=== PATIENT | male | born 1965 | race Caucasian/White ===

== ENCOUNTER → 2016-05-07 | Outpatient (CLI) | payer MEDICAID ==
--- NOTE | 2016-05-07 21:54 | PN ---
This patient has chronic insomnia and mild positional obstructive sleep apnea. I am seeing him for a six month check. He is doing well. He is still on Ambien. He is unable to sleep without Ambien, however, with Ambient he is averaging around 7 hours of sleep. He goes to bed around 9:00 p.m. and wakes up at 4:00 a.m. in the morning. No sleepwalking. No daytime hypersomnia or sleepiness. No history of any motor vehicle accidents because of feeling sleepy or tired. No loud snoring at this point in time, and his weight has been stable. As such, he has been not encountering any side effects of Ambien and this will be continued. At times to wean himself off the medications has failed knowing that this has caused limitations in his sleep hours. His current [place] score is 6. His current vitals: BP is 140/89, pulse 60, respirations 16, temperature 98.1. Weight is 320. Height is 72 inches. BMI is 42.9. [place] score is 6. GENERAL APPEARANCE: Calm, comfortable. LUNGS: Clear to auscultation. HEART: Sounds are regular rate and rhythm. Normal S1, S2. ABDOMEN: Soft, nontender. No organomegaly. EXTREMITIES: No edema. No cyanosis or clubbing. IMPRESSIONS: 1. Chronic insomnia stable on Ambien. 2. Obesity. 3. Obstructive sleep apnea, REM specific with some mild positional component. PLAN: 1. Continue Ambien at same dose. 2. Encourage weight loss. 3. Give the patient a year supply of Ambien. 4. See him back in a years' time in follow-up; earlier if needed.
== END | disposition home or self-care (01) ==
LOC: SLEEP 15:43
PROVIDERS: ATTEND Internal Medicine Critical Care Medicine
DX: F51.04 Psychophysiologic insomnia (principal); G47.33 Obstructive sleep apnea (adult) (pediatric); E66.9 Obesity, unspecified; Z68.41 Body mass index [BMI] 40.0-44.9, adult; Z79.899 Other long term (current) drug therapy

== ENCOUNTER 2016-11-13 10:44 | Inpatient (IN) | payer MEDICAID ==
[2016-11-13] MEDS ORDERED: SODIUM CHLORIDE 0.9% 1,000 ML IV STA ×2 (11:11)
[2016-11-13] MEDS ORDERED: PIPERACILLIN-TAZOBACTAM 3.375 GM in DEXTROSE/WATER 1 50ML.BAG IVPB STA (11:11)
--- NOTE | 2016-11-13 11:39 | ED ---
General Adult HPI <Landen Phoenix - Last Filed: 11/13/16 12:47> - General Source: patient, RN notes reviewed, old records reviewed Mode of arrival: ambulatory Limitations: no limitations <Alfredito Wilson - Last Filed: 11/13/16 12:49> - General Chief complaint: Abdominal Pain Stated complaint: Dx DIVERTICULAR ABSCESS Time Seen by Provider: 11/13/16 11:00 - History of Present Illness Initial comments: Patient 51-year-old male who presents emergency room today with a chief complaint of lower abdominal pain over the last 4-5 days. He does admit to sharp pain at times and lower abdomen. He states he did go to walk-in clinic and had an outpatient CAT scan ordered. States he was called back and advised come here to the emergency room for a abscess. Patient states currently comfortable at this time currently rates pain 2/10. Denies any other symptoms. Patient denies any recent fever, chills, shortness of breath, chest pain, back pain, nausea or vomiting, numbness or tingling, dysuria or hematuria, constipation or diarrhea, headaches or visual changes, or any other complaints. (Alfredito Wilson) - Related Data Home Medications Medication Instructions Recorded Confirmed Zolpidem Tartrate [Zolpidem 10 mg PO HS 11/13/16 11/13/16 Tartrate] Allergies Allergy/AdvReac Type Severity Reaction Status Date / Time No Known Allergies Allergy Verified 11/13/16 11:53 Review of Systems ROS Other: All systems not noted in ROS Statement are negative. <Landen Phoenix - Last Filed: 11/13/16 12:47> ROS Other: All systems not noted in ROS Statement are negative. <Alfredito Wilson - Last Filed: 11/13/16 12:49> ROS Statement: Those systems with pertinent positive or pertinent negative responses have been documented in the HPI. Past Medical History Past Medical History: No Reported History History of Any Multi-Drug Resistant Organisms: None Reported Past Surgical History: Appendectomy, Tonsillectomy Additional Past Surgical History / Comment(s): rhinoplasty Past Psychological History: No Psychological Hx Reported Smoking Status: Former smoker Past Alcohol Use History: Occasional Past Drug Use History: None Reported <Alfredito Wilson - Last Filed: 11/13/16 12:49> General Exam <Landen Phoenix Last Filed: 11/13/16 12:47> Limitations: no limitations <Alfredito Wilson - Last Filed: 11/13/16 12:49> - General Exam Comments Initial Comments: General: The patient is awake and alert, in no distress, and does not appear acutely ill. Eye: Pupils are equal, round and reactive to light, extra-ocular movements are intact. No nystagmus. There is normal conjunctiva bilaterally. No signs of icterus. Ears, nose, mouth and throat: There are moist mucous membranes and no oral lesions. Neck: The neck is supple, there is no tenderness or JVD. Cardiovascular: There is a regular rate and rhythm. No murmur, rub or gallop is appreciated. Respiratory: Lungs are clear to auscultation, respirations are non-labored, breath sounds are equal. No wheezes, stridor, rales, or rhonchi. Gastrointestinal: Normal appearance abdomen. Normal bowel sounds. Abdomen soft on palpation. Patient does have mild tenderness suprapubic. No rebound. No guarding. No CVA tenderness. Musculoskeletal: Normal ROM, no tenderness. Strength 5/5. Sensation intact. Pulses equal bilaterally 2+. Neurological: A&O x 3. CN II-XII intact, There are no obvious motor or sensory deficits. Coordination appears grossly intact. Speech is normal. Skin: Skin is warm and dry and no rashes or lesions are noted. Psychiatric: Cooperative, appropriate mood & affect, normal judgment. (Alfredito Wilson) Course <Landen Phoenix - Last Filed: 11/13/16 12:47> <Alfredito Wilson - Last Filed: 11/13/16 12:49> Vital Signs 11/13/16 11/13/16 10:48 12:39 Temperature 98.6 F 99.2 F Pulse Rate 90 82 Respiratory 20 20 Rate Blood Pressure 125/74 114/57 O2 Sat by Pulse 96 98 Oximetry - Reevaluation(s) Reevaluation #1: 11/13/16 11:39 CT of the abdomen and pelvis reviewed and shows extensive diverticular change in the sigmoid colon. There is a pulsatile attenuation associated with the sigmoid colon which showing enhancement and measures 4.8 cm. Surrounding fat at this level shows inflammatory change, increased attenuation. Some mass effect on the sigmoid colon due to inflammatory mass. Colonic wall thickening is present. (Alfredito Wilson) Reevaluation #2: 11/13/16 12:47 I proceed a [id number] evaluation the patient did discuss spines with him and his . Patient does demonstrate lower abdominal tenderness to the mid and left lower quadrant area. This is consistent with the diverticulitis with abscess noted on the CAT scan. The patient will be admitted to the hospitalist service of Dr. Ibanez with Dr. Clifton on consult. (Landen Phoenix) Medical Decision Making - Lab Data Result diagrams: 11/13/16 11:35 11/13/16 11:35 <Landen Phoenix - Last Filed: 11/13/16 12:47> - Lab Data Result diagrams: 11/13/16 11:35 11/13/16 11:35 <Alfredito Wilson - Last Filed: 11/13/16 12:49> - Lab Data Lab Results 11/13/16 11/13/16 11/13/16 Range/Units 11:35 11:35 11:35 WBC 9.5 (3.8-10.6) k/uL RBC 4.37 (4.30-5.90) m/uL Hgb 13.9 (13.0-17.5) gm/dL Hct 39.6 (39.0-53.0) % MCV 90.5 (80.0-100.0) fL MCH 31.8 (25.0-35.0) pg MCHC 35.2 (31.0-37.0) g/dL RDW 12.7 (11.5-15.5) % Plt Count 283 (150-450) k/uL Neutrophils % 66 % Lymphocytes % 21 % Monocytes % 8 % Eosinophils % 1 % Basophils % 1 % Neutrophils # 6.3 (1.3-7.7) k/uL Lymphocytes # 2.0 (1.0-4.8) k/uL Monocytes # 0.8 (0-1.0) k/uL Eosinophils # 0.1 (0-0.7) k/uL Basophils # 0.1 (0-0.2) k/uL Sodium 138 (137-145) mmol/L Potassium 4.3 (3.5-5.1) mmol/L Chloride 103 (98-107) mmol/L Carbon Dioxide 26 (22-30) mmol/L Anion Gap 9 mmol/L BUN 14 (9-20) mg/dL Creatinine 1.00 (0.66-1.25) mg/dL Est GFR (MDRD) Af Amer >60 (>60 ml/min/1.73 sqM) Est GFR (MDRD) Non-Af >60 (>60 ml/min/1.73 sqM) Glucose 140 H (74-99) mg/dL Plasma Lactic Acid Julián 1.4 (0.7-2.0) mmol/L Calcium 8.4 (8.4-10.2) mg/dL Total Bilirubin 0.5 (0.2-1.3) mg/dL AST 29 (17-59) U/L ALT 42 (21-72) U/L Alkaline Phosphatase 79 (38-126) U/L Total Protein 6.2 L (6.3-8.2) g/dL Albumin 3.4 L (3.5-5.0) g/dL Urine Color Urine Appearance (Clear) Urine pH (5.0-8.0) Urine Protein (Negative) Urine Glucose (UA) (Negative) Urine Ketones (Negative) Urine Blood (Negative) Urine Nitrite (Negative) Urine Bilirubin (Negative) Urine Urobilinogen (<2.0) mg/dL Ur Leukocyte Esterase (Negative) 11/13/16 Range/Units 11:37 WBC (3.8-10.6) k/uL RBC (4.30-5.90) m/uL Hgb (13.0-17.5) gm/dL Hct (39.0-53.0) % MCV (80.0-100.0) fL MCH (25.0-35.0) pg MCHC (31.0-37.0) g/dL RDW (11.5-15.5) % Plt Count (150-450) k/uL Neutrophils % % Lymphocytes % % Monocytes % % Eosinophils % % Basophils % % Neutrophils # (1.3-7.7) k/uL Lymphocytes # (1.0-4.8) k/uL Monocytes # (0-1.0) k/uL Eosinophils # (0-0.7) k/uL Basophils # (0-0.2) k/uL Sodium (137-145) mmol/L Potassium (3.5-5.1) mmol/L Chloride (98-107) mmol/L Carbon Dioxide (22-30) mmol/L Anion Gap mmol/L BUN (9-20) mg/dL Creatinine (0.66-1.25) mg/dL Est GFR (MDRD) Af Amer (>60 ml/min/1.73 sqM) Est GFR (MDRD) Non-Af (>60 ml/min/1.73 sqM) Glucose (74-99) mg/dL Plasma Lactic Acid Julián (0.7-2.0) mmol/L Calcium (8.4-10.2) mg/dL Total Bilirubin (0.2-1.3) mg/dL AST (17-59) U/L ALT (21-72) U/L Alkaline Phosphatase (38-126) U/L Total Protein (6.3-8.2) g/dL Albumin (3.5-5.0) g/dL Urine Color Yellow Urine Appearance Clear (Clear) Urine pH 6.5 (5.0-8.0) Urine Protein Trace H (Negative) Urine Glucose (UA) 1+ H (Negative) Urine Ketones Negative (Negative) Urine Blood Negative (Negative) Urine Nitrite Negative (Negative) Urine Bilirubin Negative (Negative) Urine Urobilinogen 2.0 (<2.0) mg/dL Ur Leukocyte Esterase Negative (Negative) Disposition <Landen Phoenix - Last Filed: 11/13/16 12:47> Time of Disposition: 12:29 <Alfredito Wilson - Last Filed: 11/13/16 12:49> Clinical Impression: Intestinal abscess Disposition[facility] Referrals: Bunny Ortiz DO [Primary Care Provider] - 1-2 days
[2016-11-13 11:48] LABS: Basophils # (A) 0.1 k/uL (0-0.2); Basophils % (A) 1 %; CH 31.7; CHCM 35.2; Eosinophils # (A) 0.1 k/uL (0-0.7); Eosinophils % (A) 1 %; HCT 39.6 % (39.0-53.0); HDW 2.89; HGB 13.9 gm/dL (13.0-17.5); Luc # (Auto) 0.21; Luc % (Auto) 2; Lymphocytes % (A) 21 %; MCH 31.8 pg (25.0-35.0); MCHC 35.2 g/dL (31.0-37.0); MCV 90.5 fL (80.0-100.0); Mean Platelet Volume 6.7; Monocytes # (A) 0.8 k/uL (0-1.0); Monocytes % (A) 8 %; Neutrophils # (A) 6.3 k/uL (1.3-7.7); Neutrophils % (A) 66 %; RBC 4.37 m/uL (4.30-5.90); RDW 12.7 % (11.5-15.5); WBC 9.5 k/uL (3.8-10.6); WBC (Perox) 9.33
[2016-11-13 11:59] LABS: ALT 42 U/L (21-72); AST 29 U/L (17-59); Alkaline Phosphatase 79 U/L (38-126); Anion Gap 9 mmol/L; Blood Urea Nitrogen 14 mg/dL (9-20); Calcium 8.4 mg/dL (8.4-10.2); Carbon Dioxide 26 mmol/L (22-30); Chloride 103 mmol/L (98-107); Glucose 140 mg/dL (74-99); Non-African American GFR(MDRD) >60 (>60 ml/min/1.73 sqM); Potassium 4.3 mmol/L (3.5-5.1); Sodium 138 mmol/L (137-145); Total Bilirubin 0.5 mg/dL (0.2-1.3); Total Protein 6.2 g/dL (6.3-8.2)
[2016-11-13] MEDS ORDERED: ONDANSETRON 4 MG/2 ML VIAL IVP STA (12:27)
[2016-11-13] MEDS ORDERED: HYDROmorphone 1 MG/ML 1 ML SYRINGE IVP STA (12:27)
[2016-11-13 12:48] LABS: Appearance,Urine Clear (Clear); Bilirubin,Urine Negative (Negative); Glucose,Urine (UA) 1+ (Negative); Ketones,Urine Negative (Negative); Leukocyte Esterase,Urine Negative (Negative); Nitrite,Urine Negative (Negative); PH, Urine 6.5 (5.0-8.0); Protein,Urine Trace (Negative); UA Billing (MACRO vs. MICRO) CHEM
[2016-11-13] MEDS ORDERED: NALOXONE 0.4 MG/ML 1 ML VIAL IV PRN (12:49)
[2016-11-13] MEDS ORDERED: ONDANSETRON 4 MG/2 ML VIAL IVP PRN (12:49)
[2016-11-13] MEDS: metroNIDAZOLE-NS PMX 500 MG in SALINE 1 100ML.BAG IVPB SCH (15:59)
[2016-11-13] MEDS ORDERED: PIPERACILLIN-TAZOBACTAM 3.375 GM in DEXTROSE/WATER 1 50ML.BAG IVPB SCH (16:00)
[2016-11-13] MEDS: LEVOFLOXACIN 750MG-D5W PMX 750 MG in DEXTROSE/WATER 1 150ML.BAG IVPB SCH (17:19)
[2016-11-13] MEDS: HYDROmorphone 1 MG/ML 1 ML SYRINGE IV PRN (18:26)
--- NOTE | 2016-11-13 23:45 | P.HPIM ---
History of Present Illness H&P Date: 11/13/16 Chief Complaint: Abdominal pain This is a very pleasant 51-year-old patient of Dr. Ortiz. Relevant good health patient has a borderline diagnosis of obstructive sleep apnea and takes and also is got insomnia. She takes Ambien. 1 week patient having increasing lower abdominal pain slowly getting much worse. No nausea some vomiting no fever at present admitted having bowel movements. Patient went to Dr. Ortiz office and a CAT scan was ordered and patient admitted after this was showing an abscess. Patient's at the bedside. GEN.: Tired EYES: None HEENT: None NECK: None RESPIRATORY: None CARDIOVASCULAR: None GASTROINTESTINAL: As above] GENITOURINARY: None MUSCULOSKELETAL: None LYMPHATICS: None HEMATOLOGICAL: None PSYCHIATRY: None NEUROLOGICAL: None Past medical history: Borderline obstructive sleep apnea, insomnia Past surgical history: Appendectomy, tonsillectomy, septorhinoplasty, Social history: , smoked for 16 years.1999, patient works at that correction[employer] for [employer]. No symptoms significant alcohol history Family history: Mother diverticular disease Home medications: Reviewed in the computer ALLERGIES: None VITAL SIGNS: Temperature 98.6, pulse 90, respiratory 20, 1 blood pressure 125/74 , 96% room air GENERAL: Well-built, BMI 43.1 laying in bed tired appearing. EYES: Pupils equal. Conjunctiva normal. HEENT: External appearance of nose and ears normal, oral cavity grossly normal. NECK: JVD not raised; masses not palpable. HEART: First and second heart sounds are normal; no edema. LUNGS: Respiratory rate normal; clear to auscultation. ABDOMEN: Soft, lower abdominal tenderness no guarding rigidity, liver spleen not palpable, no masses palpable. LYMPHATICS: No lymph nodes palpable in the axilla and neck. PSYCH: Alert and oriented x3; mood and affect normal. NEUROLOGICAL: Cranial nerves grossly intact; no facial asymmetry, power and sensation grossly intact. Investigation: Computed tomography scan-showing extensive diverticular changes in the sigmoid colon, with diverticular abscess Assessment: -This patient with known colonic diverticulosis with 1 week history of progressive lower abdominal pain now admitted with diverticular abscess -Morbid obesity BMI 43.1 -Chronic diverticulosis -Chronic insomnia Plan: Patient started on IV Levaquin in the ER. IV Flagyl was added. Patient is being made nothing by mouth. Gen. surgery being consulted. Lovenox for DVT prophylaxis. Will start IV fluids. Care was discussed the patient and in detail questions were answered. Past Medical History Past Medical History: No Reported History, GI Bleed, Sleep Apnea/CPAP/BIPAP Additional Past Medical History / Comment(s): Lower GI bleed, diverticular dx, NELI no device-positional, insomnia. History of Any Multi-Drug Resistant Organisms: None Reported Past Surgical History: Appendectomy, Tonsillectomy Additional Past Surgical History / Comment(s): Septo/rhinoplasty, colonoscopies , wisdom extractions. Past Anesthesia/Blood Transfusion Reactions: No Reported Reaction Past Psychological History: No Psychological Hx Reported Additional Psychological History / Comment(s): Pt resides with his spouse. He is independent. He is retired from the [employer]. Smoking Status: Former smoker Past Alcohol Use History: Occasional Additional Past Alcohol Use History / Comment(s): Pt started smoking in 1983 and quit in 1999. He was a ppd smoker. Past Drug Use History: None Reported - Past Family History Mother Additional Family Medical History / Comment(s): Mother had diverticular disease. She had a obstructed bowel and had emergency surgery. Father Additional Family Medical History / Comment(s): Father had to have 3 colostomies in his life. Medications and Allergies Home Medications Medication Instructions Recorded Confirmed Type Zolpidem Tartrate [Zolpidem 10 mg PO HS 11/13/16 11/13/16 History Tartrate] Allergies Allergy/AdvReac Type Severity Reaction Status Date / Time No Known Allergies Allergy Verified 11/13/16 11:53 Results CBC & Chem 7: 11/13/16 11:35 11/13/16 11:35
[2016-11-14] MEDS: metroNIDAZOLE-NS PMX 500 MG in SALINE 1 100ML.BAG IVPB SCH ×3 (00:47→16:47)
[2016-11-14] MEDS: LACTATED RINGERS 1,000 ML IV SCH ×2 (00:47→10:07)
[2016-11-14] MEDS: LORazepam 2 MG/ML SYRINGE IV PRN (01:40)
[2016-11-14] MEDS: HYDROmorphone 1 MG/ML 1 ML SYRINGE IV PRN (06:12)
[2016-11-14] MEDS: ENOXAPARIN 40 MG/0.4 ML SYRINGE SQ SCH (08:09)
[2016-11-14 09:05] LABS: Basophils % (A) 1 %; CH 31.4; CHCM 34.4; Eosinophils # (A) 0.1 k/uL (0-0.7); Eosinophils % (A) 2 %; HCT 37.8 % (39.0-53.0); HDW 2.92; HGB 12.8 gm/dL (13.0-17.5); Luc # (Auto) 0.16; Luc % (Auto) 4; Lymphocytes # (A) 1.3 k/uL (1.0-4.8); Lymphocytes % (A) 28 %; MCH 30.9 pg (25.0-35.0); MCHC 33.7 g/dL (31.0-37.0); MCV 91.7 fL (80.0-100.0); Mean Platelet Volume 6.2; Monocytes # (A) 0.3 k/uL (0-1.0); Monocytes % (A) 8 %; Neutrophils # (A) 2.6 k/uL (1.3-7.7); Neutrophils % (A) 58 %; RBC 4.12 m/uL (4.30-5.90); RDW 12.8 % (11.5-15.5); WBC 4.5 k/uL (3.8-10.6)
[2016-11-14 09:21] LABS: ALT 40 U/L (21-72); AST 24 U/L (17-59); Alkaline Phosphatase 65 U/L (38-126); Anion Gap 7 mmol/L; Blood Urea Nitrogen 10 mg/dL (9-20); Calcium 7.8 mg/dL (8.4-10.2); Carbon Dioxide 26 mmol/L (22-30); Chloride 106 mmol/L (98-107); Glucose 104 mg/dL (74-99); Non-African American GFR(MDRD) >60 (>60 ml/min/1.73 sqM); Potassium 4.1 mmol/L (3.5-5.1); Sodium 139 mmol/L (137-145); Total Bilirubin 0.4 mg/dL (0.2-1.3); Total Protein 5.8 g/dL (6.3-8.2)
--- NOTE | 2016-11-14 10:45 | P.GSCN ---
History of Present Illness Consult date: 11/14/16 Reason for Consult: Abdominal pain History of present illness: Pleasant 51-year-old gentleman presented on the day of admission to the emergency room after patient stated he was seen at his PCPs office Dr. flores to be evaluated for a one-week duration of having intermittent episodes of bilateral lower abdominal pain. Patient stated there is been a nausea sensation with no vomiting no fever. He states his primary care provider ordered a CAT scan which the patient has done it was called and told to come to the emergency room the CAT scan was abnormal. Patient did have a CAT scan of the abdomen pelvis with contrast done on November 13 in summary it did show diverticulitis or abscess center within the bowel wall. Extensive diverticular changes in the sigmoid colon. There was a focus of low attenuation associated with the sigmoid colon which did show ring enhancement measured 4.8 cm. There is some mass effect of the sigmoid colon due to the inflammatory mass. Given the above clinical findings the patient did present to the emergency room and was admitted to the services of the attending who did request a surgical eval for the above-mentioned symptoms. Patient states he had a colonoscopy within the last [address] Styles to his knowledge there were no abnormal findings. Patient states he has been told that he does have diverticulosis never been treated for diverticulitis Additionally patient states there's been no change in bowel habits no blood in stool no unintentional weight loss. Patient's past surgical history patient states many years ago had an appendectomy, tonsillectomy and the nasal surgery. Patient states prior to this event had been in relatively good health. Denies any cardiac history denies any chest pain shortness of breath dizziness or lightheadedness. Patient currently is resting in bed and states pain medication is effective for pain control The white count on admission was 9.5 and hemoglobin 13.9 electrolytes within normal limits AST and ALT were not elevated voided urine was unremarkable Review of Systems Essentially unremarkable except as mentioned in the present illness Past Medical History Past Medical History: No Reported History, GI Bleed, Sleep Apnea/CPAP/BIPAP Additional Past Medical History / Comment(s): Lower GI bleed, diverticular dx, NELI no device-positional, insomnia. History of Any Multi-Drug Resistant Organisms: None Reported Past Surgical History: Appendectomy, Tonsillectomy Additional Past Surgical History / Comment(s): Septo/rhinoplasty, colonoscopies , wisdom extractions. Past Anesthesia/Blood Transfusion Reactions: No Reported Reaction Past Psychological History: No Psychological Hx Reported Additional Psychological History / Comment(s): Pt resides with his spouse. He is independent. He is retired from the [employer]. Smoking Status: Former smoker Past Alcohol Use History: Occasional Additional Past Alcohol Use History / Comment(s): Pt started smoking in 1983 and quit in 1999. He was a ppd smoker. Past Drug Use History: None Reported - Past Family History Mother Additional Family Medical History / Comment(s): Mother had diverticular disease. She had a obstructed bowel and had emergency surgery. Father Additional Family Medical History / Comment(s): Father had to have 3 colostomies in his life. Medications and Allergies Home Medications Medication Instructions Recorded Confirmed Type Zolpidem Tartrate [Zolpidem 10 mg PO HS 11/13/16 11/13/16 History Tartrate] Allergies Allergy/AdvReac Type Severity Reaction Status Date / Time No Known Allergies Allergy Verified 11/13/16 11:53 Surgical - Exam Vital Signs Temp Pulse Resp BP Pulse Ox 98.6 F 90 20 125/74 96 11/13/16 10:48 11/13/16 10:48 11/13/16 10:48 11/13/16 10:48 11/13/16 10:48 GENERAL APPEARANCE: 51-year-old gentleman patient is alert, oriented, in no acute distress. Pleasant VITAL SIGNS: . HEENT: Head is normocephalic and atraumatic. Pupils are equal and reactive. The nares are patent. Oropharynx is clear without lesions. NECK: Supple without lymphadenopathy. Traches midline. HEART: S1, S2. Regular rate and rhythm. Denying chest pain no murmur noted LUNGS: No crackles or wheezes are heard. Adequate air movement bilaterally no shortness of breath no cough on room air sats are 95% ABDOMEN: Soft, slight tenderness, suprapubic no guarding nondistended with good bowel sounds. No peritoneal signs. No palpable organomegaly or masses. EXTREMITIES: Normal skin color and turgor. No cyanosis, rash, ulceration, clubbing or edema. Radial pedal pulses are 2/4 bilaterally. NEUROLOGICAL: No focal deficits. Strength and sensation are grossly intact. Results - Labs 11/14/16 08:41 11/15/16 08:22 Abnormal Lab Results - Last 24 Hours (Table) 11/13/16 11/13/16 11/14/16 Range/Units 11:35 11:37 08:41 RBC 4.12 L (4.30-5.90) m/uL Hgb 12.8 L (13.0-17.5) gm/dL Hct 37.8 L (39.0-53.0) % Glucose 140 H (74-99) mg/dL Calcium (8.4-10.2) mg/dL Total Protein 6.2 L (6.3-8.2) g/dL Albumin 3.4 L (3.5-5.0) g/dL Ur Specific [place] 1.050 H (1.001-1.035) Urine Protein Trace H (Negative) Urine Glucose (UA) 1+ H (Negative) 11/14/16 Range/Units 08:41 RBC (4.30-5.90) m/uL Hgb (13.0-17.5) gm/dL Hct (39.0-53.0) % Glucose 104 H (74-99) mg/dL Calcium 7.8 L (8.4-10.2) mg/dL Total Protein 5.8 L (6.3-8.2) g/dL Albumin 3.1 L (3.5-5.0) g/dL Ur Specific [place] (1.001-1.035) Urine Protein (Negative) Urine Glucose (UA) (Negative) Diabetes panel 11/13/16 11/14/16 Range/Units 11:35 08:41 Sodium 138 139 (137-145) mmol/L Potassium 4.3 4.1 (3.5-5.1) mmol/L Chloride 103 106 (98-107) mmol/L Carbon Dioxide 26 26 (22-30) mmol/L BUN 14 10 (9-20) mg/dL Creatinine 1.00 0.92 (0.66-1.25) mg/dL Glucose 140 H 104 H (74-99) mg/dL Calcium 8.4 7.8 L (8.4-10.2) mg/dL AST 29 24 (17-59) U/L ALT 42 40 (21-72) U/L Alkaline Phosphatase 79 65 (38-126) U/L Total Protein 6.2 L 5.8 L (6.3-8.2) g/dL Albumin 3.4 L 3.1 L (3.5-5.0) g/dL Calcium panel 11/13/16 11/14/16 Range/Units 11:35 08:41 Calcium 8.4 7.8 L (8.4-10.2) mg/dL Albumin 3.4 L 3.1 L (3.5-5.0) g/dL Pituitary panel 11/13/16 11/14/16 Range/Units 11:35 08:41 Sodium 138 139 (137-145) mmol/L Potassium 4.3 4.1 (3.5-5.1) mmol/L Chloride 103 106 (98-107) mmol/L Carbon Dioxide 26 26 (22-30) mmol/L BUN 14 10 (9-20) mg/dL Creatinine 1.00 0.92 (0.66-1.25) mg/dL Glucose 140 H 104 H (74-99) mg/dL Calcium 8.4 7.8 L (8.4-10.2) mg/dL Adrenal panel 11/13/16 11/14/16 Range/Units 11:35 08:41 Sodium 138 139 (137-145) mmol/L Potassium 4.3 4.1 (3.5-5.1) mmol/L Chloride 103 106 (98-107) mmol/L Carbon Dioxide 26 26 (22-30) mmol/L BUN 14 10 (9-20) mg/dL Creatinine 1.00 0.92 (0.66-1.25) mg/dL Glucose 140 H 104 H (74-99) mg/dL Calcium 8.4 7.8 L (8.4-10.2) mg/dL Total Bilirubin 0.5 0.4 (0.2-1.3) mg/dL AST 29 24 (17-59) U/L ALT 42 40 (21-72) U/L Alkaline Phosphatase 79 65 (38-126) U/L Total Protein 6.2 L 5.8 L (6.3-8.2) g/dL Albumin 3.4 L 3.1 L (3.5-5.0) g/dL Assessment and Plan Plan: Impression 1 week duration of mid bilateral lower abdominal pain with a CAT scan of the abdomen and pelvis showing an abscess consistent with diverticulitis CAT scan abdomen and pelvis done on November 13 show diverticular abscess 4.8 cm centered within the bowel wall History of chronic insomnia Morbid obesity BMI 43 positive family history of colon disease borderline diagnosis of obstructive sleep apnea Plan Pain control DVT and GI prophylaxis IV antibiotic Levaquin and Flagyl as ordered IV fluid for rehydration Further surgical recommendations pending Thank you for allowing us to participate in the surgical management of your patient further surgical recommendations pending clinical course The above impression and plan of care have been discussed and directed by signing physician. Hanane Lockett nurse practitioner acting as scribe for signing physician.
[2016-11-14] MEDS: LEVOFLOXACIN 750MG-D5W PMX 750 MG in DEXTROSE/WATER 1 150ML.BAG IVPB SCH (17:58)
--- NOTE | 2016-11-14 18:52 | PN ---
DATE OF SERVICE: 11/14/2016 PRESENTING COMPLAINT: Abdominal pain. INTERVAL HISTORY: This is a patient who presents with diverticular abscess; still having abdominal pain. No nausea or vomiting. On IV antibiotics. Patient is n.p.o. Lying in bed. is at the bedside. Review of systems is done for constitutional, cardiovascular, GI, pulmonary; relevant findings as above. Current medications are reviewed and include IV Levaquin and Flagyl. On examination, temperature 97, pulse 69, respiration 18, blood pressure 106/62 , pulse ox 96% on room air. GENERAL APPEARANCE: Lying in bed. Awake. EYES: Pupils equal. Conjunctivae normal. NECK: JVD not raised. Mass not palpable. RESPIRATORY: Effort normal. LUNGS: Clear. CARDIOVASCULAR: First and second sounds normal. No edema. ABDOMEN: Lower abdominal tenderness. No guarding or rigidity. PSYCHIATRY: Alert and oriented x3. Mood and affect normal. INVESTIGATIONS: White count 4.5, hemoglobin 12.8. Potassium 4.1. Albumin 3.1. ASSESSMENT: 1. Diverticular abscess in a patient with known colonic diverticulosis, slow to respond. 2. Hypoalbuminemia as an acute phase reactant. 3. Morbid obesity with a body mass index of 43.1. 4. Colonic diverticulosis. 5. Chronic insomnia. PLAN: Continue the IV Levaquin. Will give the patient ice chips. Await surgical input. Care was discussed with the patient and his . SERVANDO
[2016-11-15] MEDS: LACTATED RINGERS 1,000 ML IV SCH ×4 (00:25→15:43)
[2016-11-15] MEDS: metroNIDAZOLE-NS PMX 500 MG in SALINE 1 100ML.BAG IVPB SCH ×2 (00:26→08:35)
[2016-11-15] MEDS: LORazepam 2 MG/ML SYRINGE IV PRN (00:28)
[2016-11-15 07:54] VITALS: RESP 16
[2016-11-15] MEDS: ENOXAPARIN 40 MG/0.4 ML SYRINGE SQ SCH (08:45)
[2016-11-15 09:14] LABS: Anion Gap 6 mmol/L; Blood Urea Nitrogen 7 mg/dL (9-20); Calcium 8.2 mg/dL (8.4-10.2); Carbon Dioxide 25 mmol/L (22-30); Chloride 109 mmol/L (98-107); Glucose 86 mg/dL (74-99); Non-African American GFR(MDRD) >60 (>60 ml/min/1.73 sqM); Potassium 4.4 mmol/L (3.5-5.1); Sodium 140 mmol/L (137-145)
--- NOTE | 2016-11-15 11:25 | P.PN ---
<Hanane Lockett - Last Filed: 11/15/16 11:21> Subjective 51-year-old woman being seen on rounds currently up ambulating in the hallway patient reports less abdominal pain has significantly improved passing gas and had a bowel movement "anxious to be discharged home. Electrolytes within normal limits culture showed no growth to date remains afebrile Dr. Clifton did discuss with the patient and the patient's spouse the plan of care patient is felt to be appropriate to be discharged today will need to be on antibiotics for a 2 week duration follow-up with Dr. Clifton in 2 weeks prior to follow-up visit would need a repeat CAT scan abdomen pelvis with IV contrast. Questions were answered plan of care explained patient and spouse were able to verbalize understanding Objective - Vital Signs Vital signs: Vital Signs Temp 97.4 F L 11/15/16 07:00 Pulse 62 11/15/16 07:00 Resp 16 11/15/16 07:00 BP 106/63 11/15/16 07:00 Pulse Ox 95 11/15/16 07:00 Intake & Output 11/14/16 11/15/16 11/15/16 18:59 06:59 18:59 Intake Total 450 Balance 450 Intake: Oral 450 Other: Voiding Method Toilet # Voids 4 2 # Bowel Movements 0 - Exam GENERAL APPEARANCE: 51-year-old male patient is alert, oriented, in no acute distress. VITAL SIGNS: Reviewed HEENT: Head is normocephalic and atraumatic. Pupils are equal and reactive. The nares are patent. Oropharynx is clear without lesions. NECK: Supple without lymphadenopathy. Traches midline. HEART: S1, S2. Regular rate and rhythm. Denying chest pain LUNGS: No crackles or wheezes are heard. Adequate air movement on room air ABDOMEN: Soft, nontender, nondistended with good bowel sounds. No peritoneal signs. No palpable organomegaly or masses. EXTREMITIES: Normal skin color and turgor. No cyanosis, rash, ulceration, clubbing or edema. Radial pedal pulses are 2/4 bilaterally. NEUROLOGICAL: No focal deficits. Strength and sensation are grossly intact. - Labs CBC & Chem 7: 11/14/16 08:41 11/15/16 08:22 Labs: Abnormal Lab Results - Last 24 Hours (Table) 11/15/16 Range/Units 08:22 Chloride 109 H (98-107) mmol/L BUN 7 L (9-20) mg/dL Calcium 8.2 L (8.4-10.2) mg/dL Microbiology - Last 24 Hours (Table) 11/13/16 11:35 Blood Culture - Preliminary Blood No Growth after 24 hours Assessment and Plan Plan: Impression 1 week duration of mid bilateral lower abdominal pain with a CAT scan of the abdomen and pelvis showing an abscess consistent with diverticulitis CAT scan abdomen and pelvis done on November 13 show diverticular abscess 4.8 cm centered within the bowel wall History of chronic insomnia Morbid obesity BMI 43 positive family history of colon disease borderline diagnosis of obstructive sleep apnea Plan Pain control DVT and GI prophylaxis To continue antibiotic Levaquin and Flagyl for 2 weeks as ordered From a surgical perspective patient is felt to be medically stable and appropriate to proceed with a discharge defer to the timing of the discharge to medicine service Repeat CAT scan abdomen and pelvis IV contrast in 2 weeks The above impression and plan of care have been discussed and directed by signing physician. Hanane Lockett nurse practitioner acting as scribe for signing physician. <Kourtney Clifton - Last Filed: 11/18/16 11:11> Objective - Vital Signs Vital signs: Vital Signs Temp 98.3 F 11/15/16 14:32 Pulse 81 11/15/16 14:32 Resp 16 11/15/16 14:32 BP 126/82 11/15/16 14:32 Pulse Ox 95 11/15/16 14:32 - Labs CBC & Chem 7: 11/14/16 08:41 11/15/16 08:22 Labs: Microbiology - Last 24 Hours (Table) 11/13/16 11:35 Blood Culture - Preliminary Blood No Growth after 96 hours Assessment and Plan Plan: Sigmoid diverticulitis with intramural abscess. Iv abx change to po x 14 days. Repeat CTscan after 14 days. Elective sigmoid colectomy once infection resolves Time with Patient: Greater than 30
[2016-11-15 14:33] VITALS: BP 126/82; PULSE 81; TEMP 98.3
--- NOTE | 2016-11-19 11:36 | DS ---
FINAL DIAGNOSIS: 1. Acute diverticular abscess in a patient with known chronic diverticulosis present on admission. 2. Hypoalbuminemia as an acute phase reactant. 3. Morbid obesity, BMI 43.1. 4. Chronic diverticulosis. 5. Chronic insomnia. CONSULTATION: Dr. Clifton from general surgery. HOSPITAL COURSE: This patient presented with one week of increasing abdominal pain, cramping. CT scan did confirm a peridiverticular abscess. Managed conservatively at this time. Given IV antibiotics. At the time of discharge the patient tolerating a light diet. Abdominal pain is greatly improved. Afebrile. Normal white count. The patient was okayed by Dr. Clifton to be discharged. I had a long talk with the patient and his , and told them to be careful about diet and come back right away if any abdominal pain, nausea and vomiting, fever was to recur. Expressed understanding. On examination, abdomen soft, nontender. Bowel sounds present. DC MEDICATIONS: 1. Ambien 10 mg q.h.d. 2. Levaquin 750 mg po daily 14 tablets. 3. Flagyl 500 mg po b.i.d. for 14 days. 4. Diet is soft. 5. Follow-up with Dr. Ortiz on 11/20/16. 6. Follow-up with Dr. Clifton 12/03/16. 7. Labs, CBC, BMP in three days. 8. The patient not to go back to work for one week. MTDD
== END 2016-11-15 16:30 | disposition home or self-care (01) | DRG 392 ==
LOC: EC 10:44 → 4MS4W 12:47
PROVIDERS: ADMIT Hospitalist; ATTEND Hospitalist
DX: K57.20 Diverticulitis of large intestine with perforation and abscess without bleeding (principal); E88.09 Other disorders of plasma-protein metabolism, not elsewhere classified; E66.01 Morbid (severe) obesity due to excess calories; F51.04 Psychophysiologic insomnia; G47.33 Obstructive sleep apnea (adult) (pediatric); Z87.891 Personal history of nicotine dependence; Z79.899 Other long term (current) drug therapy
CPT/HCPCS: 36415; 74177; 80048; 80053; 81003; 82272; 83605; 85025; 87040; 96361; 96365; 96366; 96375; 99285

== ENCOUNTER → 2016-12-02 | Outpatient (CLI) | payer MEDICAID ==
--- NOTE | 2016-12-02 09:42 | CT ---
EXAMINATION TYPE: CT abdomen pelvis w con DATE OF EXAM: 12/02/2016 COMPARISON: NONE INDICATION: Diverticulitis, diverticular abscess DLP: 2235.50 mGycm, Automated exposure control for dose reduction was used. CONTRAST: 100 ml mL of Omnipaque 300. Study performed with Oral Contrast TECHNIQUE: Axial images were obtained from above the diaphragm to the pubic rami in the axial plane a t 5 mm thick sections. Reconstructed images are reviewed on the computer in the coronal plane. FINDINGS: Limited CT sections are obtained the lung bases. The lung bases are clear. There is a hiatal hernia present. CT ABDOMEN: Liver: Normal Spleen: Normal Pancreas: Normal Adrenal glands: The adrenal glands are normal. Gallbladder: Normal Kidneys: No masses are evident. No hydronephrosis is present. No cysts are present. Delayed images were obtained through the kidneys, which remain unremarkable. Aorta: Normal Inferior vena cava: Normal. CT PELVIS: Loops of bowel within the abdomen and pelvis are normal. There are loops of bowel which are incom pletely distended or lack oral contrast limiting their evaluation. Sigmoid diverticulosis is present without acute diverticulitis. Appendix: Not visualized. No suspicious inflammatory changes or dilated tubular structures are eviden t. Urinary bladder: Normal. Genitourinary structures: Prostate is normal Osseous structures: No suspicious lytic or sclerotic lesions. IMPRESSIONS: 1. Diverticulosis sigmoid colon without acute diverticulitis. 2. Previous sigmoid abscess and diverticulitis has resolved.
== END | disposition home or self-care (01) ==
LOC: RADCTMAIN 06:40
PROVIDERS: ATTEND Surgery
DX: K57.30 Diverticulosis of large intestine without perforation or abscess without bleeding (principal)
CPT/HCPCS: 74177; Q9967

== ENCOUNTER 2017-02-10 11:56 | Inpatient (IN) | payer MEDICAID ==
[2017-02-10] MEDS ORDERED: SODIUM CHLORIDE 0.9% 1,000 ML IV STA (12:57)
[2017-02-10] MEDS ORDERED: RX INFO: IV CONTRAST WAS GIVEN 1 EACH MISC MISCELLANE PRN (12:57)
--- NOTE | 2017-02-10 13:02 | ED ---
General Adult HPI - General Chief complaint: Abdominal Pain Stated complaint: abdominal pain Time Seen by Provider: 02/10/17 12:45 Source: patient, RN notes reviewed Mode of arrival: wheelchair Limitations: no limitations - History of Present Illness Initial comments: 51-year-old male presents to the emergency Department chief complaint of left lower quadrant abdominal pain. Patient has had this pain starting today. He has a history of a bowel abscess per patient and is scheduled to have a bowel resection. Patient states in this pain started to have some nausea. He went to his surgeon was sent here for evaluation. Patient states his pain is in the left lower quadrant. Patient denies any high fevers at home. Patient states yesterday he was doing fine. Patient denies any recent fever, chills, shortness of breath, chest pain, back pain, vomiting, numbness or tingling, dysuria or hematuria, constipation or diarrhea, headaches or visual changes, or any other current symptoms. - Related Data Home Medications Medication Instructions Recorded Confirmed Zolpidem Tartrate 10 mg PO HS 11/13/16 02/10/17 Allergies Allergy/AdvReac Type Severity Reaction Status Date / Time No Known Allergies Allergy Verified 02/10/17 14:09 Review of Systems ROS Statement: Those systems with pertinent positive or pertinent negative responses have been documented in the HPI. ROS Other: All systems not noted in ROS Statement are negative. Past Medical History Past Medical History: No Reported History, GI Bleed, Sleep Apnea/CPAP/BIPAP Additional Past Medical History / Comment(s): Lower GI bleed, diverticular dx, NELI no device-positional, insomnia. History of Any Multi-Drug Resistant Organisms: None Reported Past Surgical History: Appendectomy, Tonsillectomy Additional Past Surgical History / Comment(s): Septo/rhinoplasty, colonoscopies , wisdom extractions. Past Anesthesia/Blood Transfusion Reactions: No Reported Reaction Past Psychological History: No Psychological Hx Reported Smoking Status: Former smoker Past Alcohol Use History: Occasional Past Drug Use History: None Reported - Past Family History Mother Additional Family Medical History / Comment(s): Mother had diverticular disease. She had a obstructed bowel and had emergency surgery. Father Additional Family Medical History / Comment(s): Father had to have 3 colostomies in his life. General Exam - General Exam Comments Initial Comments: General: The patient is awake and alert, in no distress, and does not appear acutely ill. Eye: Pupils are equal, round and reactive to light, extra-ocular movements are intact; there is normal conjunctiva bilaterally. No signs of icterus. Ears, nose, mouth and throat: There are moist mucous membranes. Neck: The neck is supple, there is no tenderness. Cardiovascular: There is a regular rate and rhythm. No murmur, rub or gallop is appreciated. Respiratory: Lungs are clear to auscultation, respirations are non-labored, breath sounds are equal. No wheezes, stridor, rales, or rhonchi. Gastrointestinal: Soft, non-distended, tenderness in left lower quadrant of the abdomen without masses or organomegaly noted. There is no rebound or guarding present. No CVA tenderness. Bowel sounds are unremarkable. Back: There is no tenderness to palpation in the midline. There is no obvious deformity. No rashes noted. Musculoskeletal: Normal ROM, no tenderness, There is no pedal edema. There is no calf tenderness or swelling. Sensation intact. Pulses equal bilaterally 2+. Neurological: CN II-XII intact, There are no obvious motor or sensory deficits. Coordination appears grossly intact. Speech is normal. Skin: Skin is warm and dry and no rashes or lesions are noted. Psychiatric: Cooperative, appropriate mood & affect, normal judgment. Limitations: no limitations Course Vital Signs 02/10/17 12:01 Temperature 98.6 F Pulse Rate 87 Respiratory 18 Rate Blood Pressure 131/82 O2 Sat by Pulse 97 Oximetry Medical Decision Making - Medical Decision Making 51-year-old male presents emergency department with a chief complaint of abdominal pain. At this time patient's lab work and CAT scan has been reviewed that does show acute diverticulitis. At this time Dr. Sue with his nurse practitioner were seen in the emergency department the nurse practitioner was discussed with and she states that we august 14 admit the patient to Dr. Cartagena. Patient is in agreement plan. Antibiotics have been started. - Lab Data Result diagrams: 02/10/17 13:28 02/10/17 13:28 Lab Results 02/10/17 02/10/17 02/10/17 Range/Units 13:28 13:28 13:28 WBC 8.8 (3.8-10.6) k/uL RBC 4.90 (4.30-5.90) m/uL Hgb 15.1 (13.0-17.5) gm/dL Hct 45.6 (39.0-53.0) % MCV 93.1 (80.0-100.0) fL MCH 30.8 (25.0-35.0) pg MCHC 33.1 (31.0-37.0) g/dL RDW 15.3 (11.5-15.5) % Plt Count 251 (150-450) k/uL Neutrophils % 72 % Lymphocytes % 18 % Monocytes % 7 % Eosinophils % 1 % Basophils % 0 % Neutrophils # 6.3 (1.3-7.7) k/uL Lymphocytes # 1.6 (1.0-4.8) k/uL Monocytes # 0.6 (0-1.0) k/uL Eosinophils # 0.1 (0-0.7) k/uL Basophils # 0.0 (0-0.2) k/uL Sodium 139 (137-145) mmol/L Potassium 4.5 (3.5-5.1) mmol/L Chloride 103 (98-107) mmol/L Carbon Dioxide 27 (22-30) mmol/L Anion Gap 9 mmol/L BUN 11 (9-20) mg/dL Creatinine 1.10 (0.66-1.25) mg/dL Est GFR (MDRD) Af Amer >60 (>60 ml/min/1.73 sqM) Est GFR (MDRD) Non-Af >60 (>60 ml/min/1.73 sqM) Glucose 100 H (74-99) mg/dL Plasma Lactic Acid Julián 0.9 (0.7-2.0) mmol/L Calcium 9.0 (8.4-10.2) mg/dL Total Bilirubin 0.7 (0.2-1.3) mg/dL AST 31 (17-59) U/L ALT 47 (21-72) U/L Alkaline Phosphatase 69 (38-126) U/L Total Protein 7.1 (6.3-8.2) g/dL Albumin 4.1 (3.5-5.0) g/dL Amylase 51 (30-110) U/L Lipase 79 (23-300) U/L Urine Color Urine Appearance (Clear) Urine pH (5.0-8.0) Ur Specific [place] (1.001-1.035) Urine Protein (Negative) Urine Glucose (UA) (Negative) Urine Blood (Negative) Urine Nitrite (Negative) Urine Bilirubin (Negative) Urine Urobilinogen (<2.0) mg/dL Ur Leukocyte Esterase (Negative) Urine WBC (0-5) /hpf Ur Squamous Epith Cells (0-4) /hpf Urine Mucus (None) /hpf 02/10/17 Range/Units 13:42 WBC (3.8-10.6) k/uL RBC (4.30-5.90) m/uL Hgb (13.0-17.5) gm/dL Hct (39.0-53.0) % MCV (80.0-100.0) fL MCH (25.0-35.0) pg MCHC (31.0-37.0) g/dL RDW (11.5-15.5) % Plt Count (150-450) k/uL Neutrophils % % Lymphocytes % % Monocytes % % Eosinophils % % Basophils % % Neutrophils # (1.3-7.7) k/uL Lymphocytes # (1.0-4.8) k/uL Monocytes # (0-1.0) k/uL Eosinophils # (0-0.7) k/uL Basophils # (0-0.2) k/uL Sodium (137-145) mmol/L Potassium (3.5-5.1) mmol/L Chloride (98-107) mmol/L Carbon Dioxide (22-30) mmol/L Anion Gap mmol/L BUN (9-20) mg/dL Creatinine (0.66-1.25) mg/dL Est GFR (MDRD) Af Amer (>60 ml/min/1.73 sqM) Est GFR (MDRD) Non-Af (>60 ml/min/1.73 sqM) Glucose (74-99) mg/dL Plasma Lactic Acid Julián (0.7-2.0) mmol/L Calcium (8.4-10.2) mg/dL Total Bilirubin (0.2-1.3) mg/dL AST (17-59) U/L ALT (21-72) U/L Alkaline Phosphatase (38-126) U/L Total Protein (6.3-8.2) g/dL Albumin (3.5-5.0) g/dL Amylase (30-110) U/L Lipase (23-300) U/L Urine Color Yellow Urine Appearance Clear (Clear) Urine pH 7.0 (5.0-8.0) Ur Specific [place] 1.027 (1.001-1.035) Urine Protein 1+ H (Negative) Urine Glucose (UA) Negative (Negative) Urine Blood Negative (Negative) Urine Nitrite Negative (Negative) Urine Bilirubin 1+ H (Negative) Urine Urobilinogen 3.0 (<2.0) mg/dL Ur Leukocyte Esterase Negative (Negative) Urine WBC <1 (0-5) /hpf Ur Squamous Epith Cells 1 (0-4) /hpf Urine Mucus Occasional H (None) /hpf - Radiology Data Radiology results: report reviewed, image reviewed Disposition Clinical Impression: Acute diverticulitis Disposition: ADMITTED IP TO THIS [facility] Condition: Stable Referrals: Bunny Ortiz DO [Primary Care Provider] - 1-2 days Decision Date: 02/10/17 Decision Time: 14:26
[2017-02-10] MEDS ORDERED: metroNIDAZOLE-NS PMX 500 MG in SALINE 1 100ML.BAG IVPB STA (13:20)
[2017-02-10] MEDS ORDERED: metroNIDAZOLE-NS PMX 100 ML IVPB ONE (13:30)
[2017-02-10 13:44] LABS: Basophils % (A) 0 %; CH 31.6; CHCM 34.1; Eosinophils # (A) 0.1 k/uL (0-0.7); Eosinophils % (A) 1 %; HCT 45.6 % (39.0-53.0); HDW 2.64; HGB 15.1 gm/dL (13.0-17.5); Luc # (Auto) 0.14; Luc % (Auto) 2; Lymphocytes # (A) 1.6 k/uL (1.0-4.8); Lymphocytes % (A) 18 %; MCH 30.8 pg (25.0-35.0); MCHC 33.1 g/dL (31.0-37.0); MCV 93.1 fL (80.0-100.0); Monocytes # (A) 0.6 k/uL (0-1.0); Monocytes % (A) 7 %; Neutrophils # (A) 6.3 k/uL (1.3-7.7); Neutrophils % (A) 72 %; RDW 15.3 % (11.5-15.5); WBC 8.8 k/uL (3.8-10.6)
[2017-02-10 13:58] LABS: ALT 47 U/L (21-72); AST 31 U/L (17-59); Alkaline Phosphatase 69 U/L (38-126); Amylase 51 U/L (30-110); Anion Gap 9 mmol/L; Blood Urea Nitrogen 11 mg/dL (9-20); Carbon Dioxide 27 mmol/L (22-30); Chloride 103 mmol/L (98-107); Glucose 100 mg/dL (74-99); Non-African American GFR(MDRD) >60 (>60 ml/min/1.73 sqM); Potassium 4.5 mmol/L (3.5-5.1); Sodium 139 mmol/L (137-145); Total Bilirubin 0.7 mg/dL (0.2-1.3); Total Protein 7.1 g/dL (6.3-8.2)
[2017-02-10 14:04] LABS: Appearance,Urine Clear (Clear); Bilirubin,Urine 1+ (Negative); Glucose,Urine (UA) Negative (Negative); Ketones,Urine 3+ (Negative); Leukocyte Esterase,Urine Negative (Negative); Mucus,Urine Occasional /hpf; Nitrite,Urine Negative (Negative); Particle Count 3884; Protein,Urine 1+ (Negative); Specific Gravity,Urine 1.027 (1.001-1.035); Squamous Epithelial Cell,Urine 1 /hpf (0-4); UA Billing (MACRO vs. MICRO) MICRO; WBC,Urine <1 /hpf (0-5)
--- NOTE | 2017-02-10 14:24 | CT ---
EXAMINATION TYPE: CT abdomen pelvis w con DATE OF EXAM: 02/10/2017 COMPARISON: 12/02/2016 HISTORY: LLQ pain, history of bowel abscess CT DLP: 1901.7 mGycm Automated exposure control for dose reduction was used. TECHNIQUE: Helical acquisition of images was performed from the lung bases through the pelvis. CONTRAST: Performed without Oral Contrast and with IV Contrast, patient injected with 100 mL of Omnipaque 300. FINDINGS: LUNG BASES: No significant abnormality is appreciated. LIVER/GB: No significant abnormality is appreciated. PANCREAS: Pancreas enhances homogeneously without ductal dilatation. SPLEEN: Spleen is unremarkable in size with small splenule seen inferior to the q[place]in spleen. ADRENALS: Adrenal glands are unremarkable. KIDNEYS: No significant abnormality is seen. FREE AIR: No free air is visualized. RETROPERITONEAL ADENOPATHY: None visualized REPRODUCTIVE ORGANS: No significant abnormality is seen URINARY BLADDER: No significant abnormality is seen. PELVIC ADENOPATHY: None visualized. OSSEOUS STRUCTURES: No significant abnormality is seen. BOWEL: Small gastroesophageal hiatal hernia is noted. Numerous sigmoid diverticula are present witho ut pericolonic fat stranding localized to the sigmoid:. Short segment bowel wall thickening is also i dentified as well as engorgement of the vasa recta. No focal fluid collection is seen to suggest janett colonic abscess. No evidence of free air is identified to suggest macro perforation. OTHER: Small periumbilical fat filled hernia has a neck measuring 5 mm. No abutting adjacent small gurdeep wel. IMPRESSION: 1. ACUTE UNCOMPLICATED SIGMOID DIVERTICULITIS WITH NO PERICOLONIC ABSCESS OR MICROPERFORATION. NO PNE UMOPERITONEUM. 2. SMALL HIATAL HERNIA.
[2017-02-10] MEDS ORDERED: HYDROmorphone 1 MG/ML 1 ML SYRINGE IVP PRN ×2 (14:26)
[2017-02-10] MEDS ORDERED: ONDANSETRON 4 MG/2 ML VIAL IVP PRN (14:26)
[2017-02-10] MEDS ORDERED: NALOXONE 0.4 MG/ML 1 ML VIAL IV PRN (14:26)
--- NOTE | 2017-02-10 14:33 | P.GSHP ---
<Hanane Lockett - Last Filed: 02/10/17 14:42> History of Present Illness H&P Date: 02/10/17 Chief Complaint: Abdominal pain 51-year-old male was seen in Dr. lester office to be evaluated for chief complaint of having increased abdominal pain patient points to the left lower quadrant as to the reference point patient who is known history of diverticular abscess. Patient is scheduled for bowel resection with on February 21 Patient was recently discharged on the 15 of November at that time patient was managed conservatively for diverticulitis abscess given IV antibiotics and tolerating a light diet abdominal pain that admission had improved. Patient was to follow-up with Dr. frey for the planned surgery. Patient stated that he developed increased left lower quadrant pain today abdominal pain intolerable presented to Osiel's office to be evaluated with recommendations to present to the emergency room to have a CAT scan of the chest abdomen and pelvis Computed tomography scan of the abdomen and pelvis done on February 10 showed acute uncomplicated sigmoid diverticulitis with no microperforation or pericolonic abscess - Review of Systems Comment: Essentially unremarkable except as mentioned in the present illness Past Medical History Past Medical History: No Reported History, GI Bleed, Sleep Apnea/CPAP/BIPAP Additional Past Medical History / Comment(s): Lower GI bleed, diverticular dx, NELI no device-positional, insomnia. History of Any Multi-Drug Resistant Organisms: None Reported Past Surgical History: Appendectomy, Tonsillectomy Additional Past Surgical History / Comment(s): Septo/rhinoplasty, colonoscopies , wisdom extractions. Past Anesthesia/Blood Transfusion Reactions: No Reported Reaction Past Psychological History: No Psychological Hx Reported Smoking Status: Former smoker Past Alcohol Use History: Occasional Past Drug Use History: None Reported - Past Family History Mother Additional Family Medical History / Comment(s): Mother had diverticular disease. She had a obstructed bowel and had emergency surgery. Father Additional Family Medical History / Comment(s): Father had to have 3 colostomies in his life. Medications and Allergies Home Medications Medication Instructions Recorded Confirmed Type RX: Zolpidem Tartrate 10 mg PO HS 11/13/16 02/10/17 History Allergies Allergy/AdvReac Type Severity Reaction Status Date / Time No Known Allergies Allergy Verified 02/10/17 14:09 Surgical - Exam Vital Signs Temp Pulse Resp BP Pulse Ox 98.6 F 87 18 131/82 97 02/10/17 12:01 02/10/17 12:01 02/10/17 12:01 02/10/17 12:01 02/10/17 12:01 GENERAL APPEARANCE: 51-year-old male patient is alert, reports having increased abdominal pain with a nausea sensation VITAL SIGNS: Reviewed HEENT: Head is normocephalic and atraumatic. Pupils are equal and reactive. The nares are patent. Oropharynx is clear without lesions. NECK: Supple without lymphadenopathy. Traches midline. HEART: S1, S2. Regular rate and rhythm. No murmur noted LUNGS: No crackles or wheezes are heard. Good air movement bilaterally ABDOMEN: Soft, diffuse tenderness across the abdominal wall nondistended with good bowel sounds. No peritoneal signs. No palpable organomegaly or masses. EXTREMITIES: Normal skin color and turgor. No cyanosis, rash, ulceration, clubbing or edema. Radial pedal pulses are 2/4 bilaterally. NEUROLOGICAL: No focal deficits. Strength and sensation are grossly intact. Results - Labs 02/10/17 13:28 02/10/17 13:28 Abnormal Lab Results - Last 24 Hours (Table) 02/10/17 02/10/17 Range/Units 13:28 13:42 Glucose 100 H (74-99) mg/dL Urine Protein 1+ H (Negative) Urine Bilirubin 1+ H (Negative) Urine Mucus Occasional H (None) /hpf Diabetes panel 02/10/17 Range/Units 13:28 Sodium 139 (137-145) mmol/L Potassium 4.5 (3.5-5.1) mmol/L Chloride 103 (98-107) mmol/L Carbon Dioxide 27 (22-30) mmol/L BUN 11 (9-20) mg/dL Creatinine 1.10 (0.66-1.25) mg/dL Glucose 100 H (74-99) mg/dL Calcium 9.0 (8.4-10.2) mg/dL AST 31 (17-59) U/L ALT 47 (21-72) U/L Alkaline Phosphatase 69 (38-126) U/L Total Protein 7.1 (6.3-8.2) g/dL Albumin 4.1 (3.5-5.0) g/dL Calcium panel 02/10/17 Range/Units 13:28 Calcium 9.0 (8.4-10.2) mg/dL Albumin 4.1 (3.5-5.0) g/dL Pituitary panel 02/10/17 Range/Units 13:28 Sodium 139 (137-145) mmol/L Potassium 4.5 (3.5-5.1) mmol/L Chloride 103 (98-107) mmol/L Carbon Dioxide 27 (22-30) mmol/L BUN 11 (9-20) mg/dL Creatinine 1.10 (0.66-1.25) mg/dL Glucose 100 H (74-99) mg/dL Calcium 9.0 (8.4-10.2) mg/dL Adrenal panel 02/10/17 Range/Units 13:28 Sodium 139 (137-145) mmol/L Potassium 4.5 (3.5-5.1) mmol/L Chloride 103 (98-107) mmol/L Carbon Dioxide 27 (22-30) mmol/L BUN 11 (9-20) mg/dL Creatinine 1.10 (0.66-1.25) mg/dL Glucose 100 H (74-99) mg/dL Calcium 9.0 (8.4-10.2) mg/dL Total Bilirubin 0.7 (0.2-1.3) mg/dL AST 31 (17-59) U/L ALT 47 (21-72) U/L Alkaline Phosphatase 69 (38-126) U/L Total Protein 7.1 (6.3-8.2) g/dL Albumin 4.1 (3.5-5.0) g/dL Assessment and Plan Assessment: Impression Present on admission intractable left lower quadrant abdominal pain suspect due to acute diverticulitis abscess Morbid obesity BMI 40 Chronic diverticulosis Chronic insomnia Recent admission for acute diverticulitis abscess with antibiotics completed in November 2016 Plan Pain control DVT and GI prophylaxis IV antibiotics Levaquin and Flagyl as ordered Repeat labs in the morning Further recommendations pending The above impression and plan of care have been discussed and directed by signing physician. Hanane Lockett nurse practitioner acting as scribe for signing physician. <Sixto Lester W - Last Filed: 02/11/17 09:36> Surgical - Exam Vital Signs Temp Pulse Resp BP Pulse Ox 98.6 F 87 18 131/82 97 02/10/17 12:01 02/10/17 12:01 02/10/17 12:01 02/10/17 12:01 02/10/17 12:01 Results - Labs 02/11/17 07:55 02/11/17 07:55 Abnormal Lab Results - Last 24 Hours (Table) 02/10/17 02/10/17 02/11/17 Range/Units 13:28 13:42 07:55 RBC 4.20 L (4.30-5.90) m/uL Chloride (98-107) mmol/L BUN (9-20) mg/dL Glucose 100 H (74-99) mg/dL Calcium (8.4-10.2) mg/dL Total Protein (6.3-8.2) g/dL Albumin (3.5-5.0) g/dL Urine Protein 1+ H (Negative) Urine Ketones 3+ H (Negative) Urine Bilirubin 1+ H (Negative) Urine Mucus Occasional H (None) /hpf 02/11/17 Range/Units 07:55 RBC (4.30-5.90) m/uL Chloride 108 H (98-107) mmol/L BUN 8 L (9-20) mg/dL Glucose 179 H (74-99) mg/dL Calcium 8.1 L (8.4-10.2) mg/dL Total Protein 5.9 L (6.3-8.2) g/dL Albumin 3.2 L (3.5-5.0) g/dL Urine Protein (Negative) Urine Ketones (Negative) Urine Bilirubin (Negative) Urine Mucus (None) /hpf Microbiology - Last 24 Hours (Table) 02/10/17 13:42 Urine Culture - Preliminary Urine,Voided Diabetes panel 02/10/17 02/11/17 Range/Units 13:28 07:55 Sodium 139 138 (137-145) mmol/L Potassium 4.5 4.3 (3.5-5.1) mmol/L Chloride 103 108 H (98-107) mmol/L Carbon Dioxide 27 22 (22-30) mmol/L BUN 11 8 L (9-20) mg/dL Creatinine 1.10 0.96 (0.66-1.25) mg/dL Glucose 100 H 179 H (74-99) mg/dL Calcium 9.0 8.1 L (8.4-10.2) mg/dL AST 31 22 (17-59) U/L ALT 47 41 (21-72) U/L Alkaline Phosphatase 69 60 (38-126) U/L Total Protein 7.1 5.9 L (6.3-8.2) g/dL Albumin 4.1 3.2 L (3.5-5.0) g/dL Calcium panel 02/10/17 02/11/17 Range/Units 13:28 07:55 Calcium 9.0 8.1 L (8.4-10.2) mg/dL Albumin 4.1 3.2 L (3.5-5.0) g/dL Pituitary panel 02/10/17 02/11/17 Range/Units 13:28 07:55 Sodium 139 138 (137-145) mmol/L Potassium 4.5 4.3 (3.5-5.1) mmol/L Chloride 103 108 H (98-107) mmol/L Carbon Dioxide 27 22 (22-30) mmol/L BUN 11 8 L (9-20) mg/dL Creatinine 1.10 0.96 (0.66-1.25) mg/dL Glucose 100 H 179 H (74-99) mg/dL Calcium 9.0 8.1 L (8.4-10.2) mg/dL Adrenal panel 02/10/17 02/11/17 Range/Units 13:28 07:55 Sodium 139 138 (137-145) mmol/L Potassium 4.5 4.3 (3.5-5.1) mmol/L Chloride 103 108 H (98-107) mmol/L Carbon Dioxide 27 22 (22-30) mmol/L BUN 11 8 L (9-20) mg/dL Creatinine 1.10 0.96 (0.66-1.25) mg/dL Glucose 100 H 179 H (74-99) mg/dL Calcium 9.0 8.1 L (8.4-10.2) mg/dL Total Bilirubin 0.7 0.7 (0.2-1.3) mg/dL AST 31 22 (17-59) U/L ALT 47 41 (21-72) U/L Alkaline Phosphatase 69 60 (38-126) U/L Total Protein 7.1 5.9 L (6.3-8.2) g/dL Albumin 4.1 3.2 L (3.5-5.0) g/dL
[2017-02-10] MEDS: SODIUM CHLORIDE 0.9% 1,000 ML IV SCH (14:51)
[2017-02-10] MEDS: LEVOFLOXACIN 750MG-D5W PMX 750 MG in DEXTROSE/WATER 1 150ML.BAG IVPB SCH (17:17)
[2017-02-10] MEDS: LORATADINE 10 MG TAB PO SCH (19:42)
[2017-02-10] MEDS: metroNIDAZOLE 500 MG TAB PO SCH (21:43)
[2017-02-10] MEDS: ZOLPIDEM 10 MG TAB PO SCH (21:44)
[2017-02-11] MEDS: metroNIDAZOLE 500 MG TAB PO SCH ×3 (05:59→22:23)
[2017-02-11] MEDS: SODIUM CHLORIDE 0.9% 1,000 ML IV SCH ×4 (05:59→22:45)
[2017-02-11 08:20] LABS: Basophils % (A) 0 %; CH 32.2; Eosinophils # (A) 0.2 k/uL (0-0.7); Eosinophils % (A) 3 %; HDW 2.84; HGB 13.1 gm/dL (13.0-17.5); Luc # (Auto) 0.14; Luc % (Auto) 2; Lymphocytes # (A) 1.3 k/uL (1.0-4.8); Lymphocytes % (A) 21 %; MCH 31.1 pg (25.0-35.0); MCHC 32.7 g/dL (31.0-37.0); MCV 95.1 fL (80.0-100.0); Mean Platelet Volume 6.7; Monocytes # (A) 0.5 k/uL (0-1.0); Monocytes % (A) 8 %; Neutrophils % (A) 65 %; RDW 14.1 % (11.5-15.5); WBC 6.1 k/uL (3.8-10.6)
[2017-02-11] MEDS: LORATADINE 10 MG TAB PO SCH (08:32)
[2017-02-11 08:37] LABS: ALT 41 U/L (21-72); AST 22 U/L (17-59); Alkaline Phosphatase 60 U/L (38-126); Anion Gap 8 mmol/L; Blood Urea Nitrogen 8 mg/dL (9-20); Calcium 8.1 mg/dL (8.4-10.2); Carbon Dioxide 22 mmol/L (22-30); Chloride 108 mmol/L (98-107); Glucose 179 mg/dL (74-99); Non-African American GFR(MDRD) >60 (>60 ml/min/1.73 sqM); Potassium 4.3 mmol/L (3.5-5.1); Sodium 138 mmol/L (137-145); Total Bilirubin 0.7 mg/dL (0.2-1.3); Total Protein 5.9 g/dL (6.3-8.2)
[2017-02-11] MEDS: LEVOFLOXACIN 750MG-D5W PMX 750 MG in DEXTROSE/WATER 1 150ML.BAG IVPB SCH (14:28)
--- NOTE | 2017-02-11 15:21 | P.PN ---
<LevyHanane M - Last Filed: 02/11/17 15:18> Subjective Progress Note Date: 02/11/17 51-year-old seen and examined this morning. Patient states there is a significant improvement in the abdominal discomfort this morning. Patient states the pain is persistently in the left lower quadrant. On a scale from 1- 10 rates at a 3. Patient reports no nausea vomiting.Computed tomography scan of the abdomen and pelvis done on February 10 showed acute uncomplicated sigmoid diverticulitis with no microperforation or pericolonic abscess patient is on IV antibiotics Levaquin and oral Flagyl Objective - Vital Signs Vital signs: Vital Signs Temp 96.9 F L 02/11/17 15:07 Pulse 88 02/11/17 15:07 Resp 16 02/11/17 15:07 BP 115/75 02/11/17 15:07 Pulse Ox 94 L 02/11/17 15:07 Intake & Output 02/10/17 02/11/17 02/11/17 18:59 06:59 18:59 Weight 133.81 kg Other: # Voids 2 1 - Exam Physical exam 51-year-old male resting in bed appears in no acute distress Lungs adequate air movement bilaterally on room air no cough noted Heart S1-S2 audible and regular Abdomen slight tenderness to the left lower quadrant no nausea no vomiting no frequent stooling Extremities no edema noted - Labs CBC & Chem 7: 02/11/17 07:55 02/11/17 07:55 Labs: Abnormal Lab Results - Last 24 Hours (Table) 02/11/17 02/11/17 Range/Units 07:55 07:55 RBC 4.20 L (4.30-5.90) m/uL Chloride 108 H (98-107) mmol/L BUN 8 L (9-20) mg/dL Glucose 179 H (74-99) mg/dL Calcium 8.1 L (8.4-10.2) mg/dL Total Protein 5.9 L (6.3-8.2) g/dL Albumin 3.2 L (3.5-5.0) g/dL Microbiology - Last 24 Hours (Table) 02/10/17 13:42 Urine Culture - Preliminary Urine,Voided Assessment and Plan Assessment: Impression Present on admission intractable left lower quadrant abdominal pain suspect due to acute diverticulitis abscess Morbid obesity BMI 40 Chronic diverticulosis Chronic insomnia Recent admission for acute diverticulitis abscess with antibiotics completed in November 2016 Plan Pain control DVT and GI prophylaxis IV antibiotics Levaquin and oral Flagyl as ordered Repeat labs in the morning Anticipate discharge in the next 24 hours The above impression and plan of care have been discussed and directed by signing physician. Hanane Lockett nurse practitioner acting as scribe for signing physician. <Osiel,Ahmad W - Last Filed: 02/12/17 13:57> Objective - Vital Signs Vital signs: Vital Signs Temp 96.7 F L 02/12/17 07:00 Pulse 64 02/12/17 07:00 Resp 16 02/12/17 07:00 BP 124/80 02/12/17 07:00 Pulse Ox 96 02/12/17 07:00 Intake & Output 02/11/17 02/12/17 02/12/17 18:59 06:59 18:59 Intake Total 950 480 Balance 950 480 Intake: Intake, IV Titration 950 Amount Levofloxacin 750Mg-D5w 150 Pmx 750 mg In Dextrose/ Water 1 150ml.bag @ 100 mls/hr IVPB DAILY@1400 [facility] Rx#:[id number] Sodium Chloride 0.9% 1, 800 000 ml @ 100 mls/hr IV . Q10H [facility] Rx#:[id number] Oral 480 Other: Voiding Method Toilet Toilet # Voids 3 2 - Labs CBC & Chem 7: 02/12/17 09:21 02/12/17 09:21 Labs: Abnormal Lab Results - Last 24 Hours (Table) 02/12/17 Range/Units 09:21 Chloride 108 H (98-107) mmol/L BUN 8 L (9-20) mg/dL Glucose 141 H (74-99) mg/dL Total Protein 6.1 L (6.3-8.2) g/dL Albumin 3.4 L (3.5-5.0) g/dL Microbiology - Last 24 Hours (Table) 02/10/17 13:42 Urine Culture - Final Urine,Voided 02/10/17 13:28 Blood Culture - Preliminary Blood No Growth after 24 hours
[2017-02-11] MEDS: ZOLPIDEM 10 MG TAB PO SCH (22:23)
[2017-02-12] MEDS: metroNIDAZOLE 500 MG TAB PO SCH (05:24)
[2017-02-12 07:38] VITALS: BP 124/80; PULSE 64; RESP 16; TEMP 96.7
[2017-02-12] MEDS: LORATADINE 10 MG TAB PO SCH (08:29)
[2017-02-12 09:48] LABS: Basophils % (A) 1 %; CH 32.5; CHCM 34.2; Eosinophils # (A) 0.2 k/uL (0-0.7); Eosinophils % (A) 3 %; HCT 41.3 % (39.0-53.0); HDW 2.92; HGB 13.6 gm/dL (13.0-17.5); Luc # (Auto) 0.11; Luc % (Auto) 3; Lymphocytes # (A) 1.2 k/uL (1.0-4.8); Lymphocytes % (A) 28 %; MCH 31.6 pg (25.0-35.0); MCV 95.6 fL (80.0-100.0); Mean Platelet Volume 6.5; Monocytes # (A) 0.3 k/uL (0-1.0); Monocytes % (A) 8 %; Neutrophils # (A) 2.5 k/uL (1.3-7.7); Neutrophils % (A) 58 %; RBC 4.32 m/uL (4.30-5.90); RDW 13.8 % (11.5-15.5); WBC 4.4 k/uL (3.8-10.6); WBC (Perox) 4.34
[2017-02-12 10:03] LABS: ALT 41 U/L (21-72); AST 24 U/L (17-59); Alkaline Phosphatase 55 U/L (38-126); Anion Gap 7 mmol/L; Blood Urea Nitrogen 8 mg/dL (9-20); Calcium 8.9 mg/dL (8.4-10.2); Carbon Dioxide 26 mmol/L (22-30); Chloride 108 mmol/L (98-107); Glucose 141 mg/dL (74-99); Non-African American GFR(MDRD) >60 (>60 ml/min/1.73 sqM); Potassium 4.3 mmol/L (3.5-5.1); Sodium 141 mmol/L (137-145); Total Bilirubin 0.3 mg/dL (0.2-1.3); Total Protein 6.1 g/dL (6.3-8.2)
--- NOTE | 2017-02-12 10:29 | P.DS ---
Providers Date of admission: 02/10/17 14:28 Expected date of discharge: 02/12/17 Attending physician: Sixto Lester Primary care physician: [facility] Course: , 51-year-old presented to Dr. lester office on the day of admission to be evaluated for left lower quadrant pain which had increased more symptomatic.patient has a history of diverticular abscess. Patient is scheduled for bowel resection with on February 21 Patient was recently discharged on the 15 of November at that time patient was managed conservatively for diverticulitis abscess given IV antibiotics abdominal pain that admission had improved. Patient was to follow-up with Dr. frey for the planned surgery. Patient stated that he developed increased left lower quadrant pain today abdominal pain intolerable presented to Osiel's office to be evaluated with recommendations to present to the emergency room to have a CAT scan of the chest abdomen and pelvis Computed tomography scan of the abdomen and pelvis done on February 10 showed acute uncomplicated sigmoid diverticulitis with no microperforation or pericolonic abscess patient was started on IV Levaquin and by mouth Flagyl there was a noted improvement in the abdominal pain patient was felt to be hemodynamically stable and appropriate proceed with a discharge. Patient stated the left lower quadrant pain had resolved no frequent stooling Impression Present on admission intractable left lower quadrant abdominal pain suspect due to acute diverticulitis abscess Morbid obesity BMI 40 Chronic diverticulosis Chronic insomnia Recent admission for acute diverticulitis abscess with antibiotics completed in November 2016Impression The above impression and plan of care have been discussed and directed by signing physician. Hanane Lockett nurse practitioner acting as scribe for signing physician. Patient Condition at Discharge: Stable Plan - Discharge Summary Discharge Rx Participant: Yes New Discharge Prescriptions: New Levofloxacin [Levaquin] 500 mg PO DAILY #7 tab metroNIDAZOLE [Flagyl] 500 mg PO TID #21 tab No Action Zolpidem Tartrate 10 mg PO HS Discharge Medication List Zolpidem Tartrate 10 mg PO HS 11/13/16 [History] Levofloxacin [Levaquin] 500 mg PO DAILY #7 tab 02/12/17 [Rx] metroNIDAZOLE [Flagyl] 500 mg PO TID #21 tab 02/12/17 [Rx] Follow up Appointment(s)/Referral(s): Bunny Ortiz DO [Primary Care Provider] - 1-2 days Kourtney Frey MD [STAFF PHYSICIAN] - 1 Week Activity/Diet/Wound Care/Special Instructions: Low fiber diet Keep scheduled appointment for surgical procedure next week per Dr. frey Discharge Disposition: HOME SELF-CARE
== END 2017-02-12 10:57 | disposition home or self-care (01) | DRG 392 ==
LOC: EC 11:56 → 4MS4W 14:28
PROVIDERS: ADMIT Surgery; ATTEND Surgery
DX: K57.80 Diverticulitis of intestine, part unspecified, with perforation and abscess without bleeding (principal); E66.01 Morbid (severe) obesity due to excess calories; G47.00 Insomnia, unspecified; G47.33 Obstructive sleep apnea (adult) (pediatric); R11.0 Nausea; Z90.89 Acquired absence of other organs; Z87.891 Personal history of nicotine dependence
CPT/HCPCS: 36415; 74177; 80053; 81001; 82150; 83605; 83690; 85025; 87040; 87086; 96365; 99285

== ENCOUNTER 2017-02-20 06:45 | Day surgery (SDC) | payer MEDICAID ==
[2017-02-13 16:05] VITALS: BMI 39.7
[~2017-02-20 06:45] MED LIST: LACTATED RINGERS 1,000 ML IV SCH
[2017-02-20 06:59] VITALS: TEMP 97.3
[2017-02-20] MEDS ORDERED: LIDOCAINE 1% INJ 10MG/ML (20 ML MDV) ONE (07:20)
[2017-02-20] MEDS ORDERED: PROPOFOL 10 MG/ML 20 ML VIAL IV ONE (07:20)
[2017-02-20 08:05] VITALS: RESP 16
--- NOTE | 2017-02-20 08:07 | P.OP ---
Date of Procedure: 02/20/17 Preoperative Diagnosis: Recurrent sigmoid diverticulitis Obesity BMI 39.7 Postoperative Diagnosis: Same Procedure(s) Performed: Colonoscopy without biopsy Implants: NA Anesthesia: DARRICKA Surgeon: Kourtney Clifton Pathology: none sent Condition: stable Disposition: PACU Indications for Procedure: 51 years old male presents for colonoscopy. Multiple episodes of acute sigmoid diverticulitis requiring inpatient hospitalization admission. Informed consent obtained and patient elected to undergo colonoscopy with possible biopsy. The risks, benefits and potential complications were discussed with the patient including bleeding, perforation and patient elected to undergo the procedure. He is scheduled for elective robotic-assisted laparoscopic sigmoid colectomy on 02/21/2017 Operative Findings: sigmoid diverticulosis Description of Procedure: The patient was brought to the endoscopy suite and placed in lateral decubitus position. IV sedation was given as per anesthesia team. Patient was on continuous vitals and pulse oximetry monitoring throughout the procedure. A timeout was performed to verify correct patient and correct procedure. Perianal examination did not show any external hemorrhoids. Digital rectal examination was performed. No masses or gross blood. A well-lubricated Olympus colonoscope was passed per rectally and was gradually advanced beyond the sigmoid colon, splenic flexure, transverse colon, hepatic flexure and cecum. The ileocecal valve was visualized as well as the appendiceal orifice . The colonoscope was gradually withdrawn inspecting all the mucosal surfaces. Bowel prep was good. No polyps, masses, AV malformations noted. Sigmoid diverticulosis noted. The scope was gradually withdrawn and retroflexed in the rectum . No internal hemorrhoids seen. Total withdrawal time was greater than 6 minutes . Patient tolerated the procedure well and was taken to post anesthesia care unit in stable condition. Recommend repeat colonoscopy in 10 years .
[2017-02-20 08:18] VITALS: BP 108/75; PULSE 61
== END 2017-02-20 08:35 | disposition home or self-care (01) ==
LOC: ORWHC2ENDO 06:45
PROVIDERS: ATTEND Surgery
DX: K57.30 Diverticulosis of large intestine without perforation or abscess without bleeding (principal); Z83.71 Family history of colonic polyps; Z83.79 Family history of other diseases of the digestive system; E66.9 Obesity, unspecified; Z68.39 Body mass index [BMI] 39.0-39.9, adult; Z79.2 Long term (current) use of antibiotics; Z79.899 Other long term (current) drug therapy; Z79.51 Long term (current) use of inhaled steroids; E78.00 Pure hypercholesterolemia, unspecified; G47.30 Sleep apnea, unspecified; Z87.891 Personal history of nicotine dependence
CPT/HCPCS: 45378; J2001; J2704

== ENCOUNTER 2017-02-21 07:30 | Inpatient (IN) | payer MEDICAID ==
[2017-02-13 15:57] VITALS: BMI 39.7
[~2017-02-21 07:30] MED LIST changes: +DEXAMETHASONE SOD PHOSPHATE 10 MG/ML 1 ML VIAL IV ONE; +HYDROmorphone 0.5 MG/0.5 ML SYRINGE IVP PRN; -LACTATED RINGERS 1,000 ML IV SCH; +LIDOCAINE 1% 20 ML VIAL (10MG/ML) FOR IV START INTRADERMA PRN; +ONDANSETRON 4 MG/2 ML VIAL IVP ONE; +SCOPOLAMINE 1.5MG/72HR PATCH TRANSDERM ONE
[2017-02-21] MEDS ORDERED: cefOXitin IN SWFI 2 GM/10 ML SYRINGE IVP ONE (08:00)
[2017-02-21] MEDS ORDERED: ACETAMINOPHEN TAB 500 MG TAB PO ONE (08:08)
[2017-02-21] MEDS ORDERED: Antibiotics per Pharmacy 1 EACH MISC MISCELLANE PRN (08:08)
[2017-02-21] MEDS ORDERED: ALVIMOPAN 12 MG CAPSULE PO ONE (08:08)
[2017-02-21] MEDS ORDERED: HEPARIN SODIUM,PORCINE 5,000 UNIT/ML 1 ML VIAL SQ ONE ×2 (08:08→09:30)
[2017-02-21 08:33] LABS: Glucose,Whole Blood 89 mg/dL (75-99)
[2017-02-21] MEDS ORDERED: INDOCYANINE GREEN 25 MG VIAL IV STA (08:37)
[2017-02-21 08:49] LABS: Basophils % (A) 1 %; CH 31.8; CHCM 33.8; Eosinophils # (A) 0.1 k/uL (0-0.7); Eosinophils % (A) 2 %; HCT 43.2 % (39.0-53.0); HDW 2.68; HGB 14.3 gm/dL (13.0-17.5); Luc # (Auto) 0.13; Luc % (Auto) 2; Lymphocytes # (A) 2.1 k/uL (1.0-4.8); Lymphocytes % (A) 37 %; MCH 31.2 pg (25.0-35.0); MCV 94.6 fL (80.0-100.0); Mean Platelet Volume 7.1; Monocytes # (A) 0.5 k/uL (0-1.0); Monocytes % (A) 9 %; Neutrophils # (A) 2.8 k/uL (1.3-7.7); Neutrophils % (A) 49 %; RBC 4.57 m/uL (4.30-5.90); WBC 5.7 k/uL (3.8-10.6); WBC (Perox) 5.84
[2017-02-21] MEDS: LACTATED RINGERS 1,000 ML IV SCH ×2 (09:05→16:59)
[2017-02-21 09:15] LABS: ALT 57 U/L (21-72); AST 34 U/L (17-59); Alkaline Phosphatase 58 U/L (38-126); Anion Gap 6 mmol/L; Blood Urea Nitrogen 13 mg/dL (9-20); Calcium 8.6 mg/dL (8.4-10.2); Carbon Dioxide 27 mmol/L (22-30); Chloride 107 mmol/L (98-107); Glucose 90 mg/dL (74-99); Non-African American GFR(MDRD) >60 (>60 ml/min/1.73 sqM); Potassium 4.5 mmol/L (3.5-5.1); Sodium 140 mmol/L (137-145); Total Bilirubin 0.5 mg/dL (0.2-1.3); Total Protein 6.3 g/dL (6.3-8.2)
[2017-02-21] MEDS ORDERED: fentaNYL (PF) 50 MCG/ML 2 ML AMP IV ONE (09:20)
[2017-02-21] MEDS ORDERED: MIDAZOLAM 2 MG/2 ML VIAL IV ONE (09:20)
[2017-02-21] MEDS ORDERED: ONDANSETRON 4 MG/2 ML VIAL IVP PRN (09:37)
[2017-02-21] MEDS ORDERED: NALOXONE 0.4 MG/ML 1 ML VIAL IV PRN (09:37)
[2017-02-21] MEDS ORDERED: PROPOFOL 10 MG/ML 20 ML VIAL IV ONE (09:39)
[2017-02-21] MEDS ORDERED: WATER FOR INJECTION, STERILE 10 ML VIAL IV ONE (09:39)
[2017-02-21] MEDS ORDERED: SUCCINYLCHOLINE CHLORIDE VIAL 200 MG/10 ML VIAL IV ONE (09:39)
[2017-02-21] MEDS ORDERED: GLYCOPYRROLATE 0.2 MG/ML 2 ML VIAL ONE (09:39)
[2017-02-21] MEDS ORDERED: MIDAZOLAM 2 MG/2 ML VIAL ONE (09:39)
[2017-02-21] MEDS ORDERED: ePHEDrine SULFATE/0.9% NACL/PF 50 MG/5 ML SYRINGE IV ONE (09:39)
[2017-02-21] MEDS ORDERED: LIDOCAINE 1% INJ 10MG/ML (20 ML MDV) ONE (09:39)
[2017-02-21] MEDS ORDERED: fentaNYL (PF) 50 MCG/ML 2 ML AMP ONE (09:39)
[2017-02-21] MEDS ORDERED: NEOSTIGMINE 1 MG/ML 10 ML VIAL ONE (09:39)
[2017-02-21] MEDS ORDERED: VECURONIUM 10 MG VIAL IV ONE (09:39)
[2017-02-21] MEDS ORDERED: BUPIVACAINE (PF) 0.5% 37.5 ML, HYDROMORPHONE (PF) 5 MG in SODIUM CHLORIDE 0.9% 212 ML EPIDURAL PRN (10:00)
[2017-02-21] MEDS ORDERED: BUPIVACAINE (PF) 0.5% 30 ML VIAL SQ ONE (10:50)
[2017-02-21] MEDS ORDERED: LACTATED RINGERS 1,000 ML IV ONE (13:07)
[2017-02-21] MEDS ORDERED: METOCLOPRAMIDE 5 MG/ML 2 ML VIAL IVP PRN (14:21)
--- NOTE | 2017-02-21 14:53 | P.OP ---
Date of Procedure: 02/21/17 Preoperative Diagnosis: Recurrent sigmoid diverticulitis Morbid obesity BMI 39.7 Hypercholesterolemia Postoperative Diagnosis: Same Procedure(s) Performed: Robotic-assisted laparoscopic sigmoid colectomy Intraoperative rigid sigmoidoscopy Excision of left chest wall skin lesion 1x0.5 cm Anesthesia: VIDAL Surgeon: Kourtney Clifton Estimated Blood Loss (ml): 30 Pathology: other Condition: stable Disposition: PACU Indications for Procedure: 51 years old male presents with recurrent episodes of sigmoid diverticulitis. Informed consent obtained and patient to undergo robotic-assisted laparoscopic sigmoid colectomy possible open with intraoperative rigid sigmoidoscopy and all indicated procedures. He had colonoscopy yesterday which did not show any neoplastic lesions Operative Findings: The end-to-end descending colon to upper rectum anastomosis Firefly showed good blood supply No leak Description of Procedure: The patient was brought to the operating room and placed in supine position. General anesthesia with endotracheal intubation was performed as per anesthesia team. A timeout was performed to verify correct patient and correct procedure. He was confirmed to receive perioperative IV antibiotics and DVT prophylaxis. Patient was then placed in lithotomy using yellowfin stirrups and a Dunham catheter was inserted under sterile aseptic precautions. Chlorhexidine was used to prep the skin followed by application of sterile drapes. Betadine was used to prep the rectum and the perineum. A 5 mm skin incision was made in the left upper quadrant and a Veress needle was inserted and pneumoperitoneum established to a pressure of 15 mm of Hg. A 5 mm trocar was loaded on a 30 laparoscope and the peritoneal cavity was entered under direct vision using the Optiview technique. Additional 12 mm trocar was placed in the left midclavicular line, 8 mm trocar to the right of the umbilicus and a 12 mm trocar in the right lower quadrant. Patient was placed in Trendelenburg with left side up. The da Lupe Xi system was then docked. Sigmoid colon was identified below the sacral promontory. The sigmoid colon was reflected medially and the peritoneal attachment of the sigmoid colon was gently dissected to open the retroperitoneum. The descending colon was scored along the white line of Toldt and the left colon was reflected medially. There were fibrinous adhesions consistent with prior diverticulitis attacks. The sigmoid colon was reflected laterally and the sigmoid mesocolon was gently scored using hook device. Gentle dissection was carried out all the fibrofatty tissues using blunt dissection . The sigmoid artery branches were identified and isolated from surrounding fibrofatty tissue. The sigmoid artery pedicle was similarly divided using vessel sealer. The left ureter was identified at protected at all times. The peritoneal reflection overlying the upper rectum was circumferentially scored using the hook. The peritoneal reflection in the sacrum was gently scored and divided. The sigmoid mesocolon was divided in the avascular plane using the ligasure . The sigmoid colon was divided at the rectosigmoid junction using 2 loads of blue stapler load.The colon was gently elevated to take down the fibrofatty pedicle. [id number] cm proximal resection margin was chosen. 7.5 mg of Indocyanine green was injected and both areas of resection demonstrated good blood supply. Cut end of descending colon reached the pelvis without any tension. Splenic flexure did not have to be mobilized A 3 cm skin incision was made in the left upper quadrant and the fascia was divided. The muscle was split and ILS 29 anvil was interiorized.An opening was made in the sigmoid colon distal to the section site. The green tip of the anvil was introduced and brought out anteriorly . The sigmoid colon was then stapled off using a blue stapler 45 mm 2 . A 12 mm balloon trocar was placed to close the defect and maintain the pneumoperitoneum ILS 29 circular stapler was inserted per rectum and was gradually advanced upto the staple line. The stapler was gently opened. The descending colon reached the pelvis without any tension. The david were locked in position and was closed and fired. This was followed by insufflation of air via rigid sigmoidoscopy. The proximal end of the colon was clamped proximally and anastomosis was immersed in saline.There was no air bubbles noted. The leak test was negative. The 12 mm trocar site in the left upper lower quadrant was enalrgers and small olinda wound protector was used. The colon specimen was removed and the fascia closed with running sutures of 0 Vicryl. The 12 mm trocar sites were closed with 0 Vicryl using a Jameel Garcia device. All the trocar sites were examined and no evidence of bleeding. They were closed with 4-0 Monocryl and Dermabond skin glue applied. The sponge, instrument and needle count were correct 2
[2017-02-21] MEDS: HEPARIN SODIUM,PORCINE 5,000 UNIT/ML 1 ML VIAL SQ SCH (16:58)
[2017-02-21 17:24] LABS: Basophils % (A) 0 %; CH 31.1; CHCM 32.8; Eosinophils % (A) 0 %; HCT 42.1 % (39.0-53.0); HDW 2.69; HGB 13.6 gm/dL (13.0-17.5); Luc # (Auto) 0.03; Luc % (Auto) 0; Lymphocytes # (A) 0.6 k/uL (1.0-4.8); Lymphocytes % (A) 5 %; MCH 30.8 pg (25.0-35.0); MCHC 32.3 g/dL (31.0-37.0); MCV 95.2 fL (80.0-100.0); Mean Platelet Volume 7.3; Monocytes # (A) 0.2 k/uL (0-1.0); Monocytes % (A) 2 %; Neutrophils # (A) 10.7 k/uL (1.3-7.7); Neutrophils % (A) 93 %; RBC 4.42 m/uL (4.30-5.90); WBC 11.5 k/uL (3.8-10.6); WBC (Perox) 12.02
[2017-02-21 17:45] LABS: Anion Gap 6 mmol/L; Blood Urea Nitrogen 14 mg/dL (9-20); Calcium 8.6 mg/dL (8.4-10.2); Carbon Dioxide 23 mmol/L (22-30); Chloride 107 mmol/L (98-107); Glucose 203 mg/dL (74-99); Non-African American GFR(MDRD) >60 (>60 ml/min/1.73 sqM); Potassium 4.5 mmol/L (3.5-5.1); Sodium 136 mmol/L (137-145)
[2017-02-21] MEDS: ONDANSETRON 4 MG/2 ML VIAL IVP PRN (18:51)
[2017-02-21 20:09] LABS: Glucose,Whole Blood 193 mg/dL (75-99)
[2017-02-21] MEDS: ZOLPIDEM 5 MG TAB PO SCH (21:56)
[2017-02-21] MEDS: FAMOTIDINE 20 MG/2 ML VIAL IV SCH (21:56)
[2017-02-21 23:52] LABS: Cholesterol 177 mg/dL (<200); HDL Cholesterol 33 mg/dL (40-60)
[2017-02-22] MEDS: HEPARIN SODIUM,PORCINE 5,000 UNIT/ML 1 ML VIAL SQ SCH ×4 (00:08→23:04)
[2017-02-22] MEDS: LACTATED RINGERS 1,000 ML IV SCH ×5 (00:10→22:51)
[2017-02-22 02:45] LABS: Glucose,Whole Blood 169 mg/dL (75-99)
[2017-02-22 07:08] LABS: Glucose,Whole Blood 138 mg/dL (75-99)
[2017-02-22] MEDS: ALVIMOPAN 12 MG CAPSULE PO SCH ×2 (09:28→20:28)
[2017-02-22] MEDS: FAMOTIDINE 20 MG/2 ML VIAL IV SCH ×2 (09:28→20:28)
[2017-02-22] MEDS: ONDANSETRON 4 MG/2 ML VIAL IVP PRN (09:28)
--- NOTE | 2017-02-22 10:43 | P.PN ---
Subjective Progress Note Date: 02/22/17 Patient is a 50-year-old white male postop day #1 from a robotic-assisted laparoscopic sigmoid colectomy. At this time the patient has an epidural catheter in place and has no complaints of pain. He states he has had a bowel movement and is passing flatus. He has had some nausea and vomiting. This seems to be improved at this time. Objective - Vital Signs Vital signs: Vital Signs Temp 97.7 F 02/22/17 07:00 Pulse 64 02/22/17 07:00 Resp 16 02/22/17 07:00 BP 106/69 02/22/17 07:00 Pulse Ox 96 02/22/17 07:00 Intake & Output 02/21/17 02/22/17 02/22/17 18:59 06:59 18:59 Intake Total 2132 375 Output Total 355 300 Balance 1777 375 -300 Intake: IV 2132 Intake, IV Titration 375 Amount Lactated Ringers 1,000 ml 375 @ 125 mls/hr IV .Q8H [facility] Rx#:[id number] Output: Urine 325 50 Uretheral (Dunham) 125 50 Emesis 250 Estimated Blood Loss 30 Other: Voiding Method Indwelling Catheter Indwelling Catheter # Voids 3 - Constitutional General appearance: Present: obese - Respiratory Respiratory: bilateral: CTA - Cardiovascular Rhythm: regular Heart sounds: normal: S1, S2 - Gastrointestinal Gastrointestinal Comment(s): Incisions clean and dry - Psychiatric Psychiatric: Present: A&O x's 3, appropriate affect, intact judgment & insight - Labs CBC & Chem 7: 02/21/17 17:07 02/21/17 17:07 Labs: Abnormal Lab Results - Last 24 Hours (Table) 02/21/17 02/21/17 02/21/17 Range/Units 08:34 17:07 17:07 WBC 11.5 H (3.8-10.6) k/uL Neutrophils # 10.7 H (1.3-7.7) k/uL Lymphocytes # 0.6 L (1.0-4.8) k/uL Sodium 136 L (137-145) mmol/L Glucose 203 H (74-99) mg/dL POC Glucose (mg/dL) (75-99) mg/dL Triglycerides 152 H (<150) mg/dL LDL Cholesterol, Calc 114 H (0-99) mg/dL HDL Cholesterol 33 L (40-60) mg/dL 02/21/17 02/22/17 02/22/17 Range/Units 19:49 02:39 07:01 WBC (3.8-10.6) k/uL Neutrophils # (1.3-7.7) k/uL Lymphocytes # (1.0-4.8) k/uL Sodium (137-145) mmol/L Glucose (74-99) mg/dL POC Glucose (mg/dL) 193 H 169 H 138 H (75-99) mg/dL Triglycerides (<150) mg/dL LDL Cholesterol, Calc (0-99) mg/dL HDL Cholesterol (40-60) mg/dL Assessment and Plan Plan: Impression/plan: 1. 51-year-old white male POD #1 status post robotic-assisted laparoscopic sigmoid colon resection 2. Positive bowel activity 3. Probable DC epidural catheter
[2017-02-22 12:00] LABS: Glucose,Whole Blood 151 mg/dL (75-99)
--- NOTE | 2017-02-22 13:57 | P.PN ---
Progress Note - Text 02/22 1919 51-year-old male status post sigmoid colectomy by Dr. Clifton. Epidural solution running at 3 mL an hour, patient is comfortable. No weakness or numbness noted in the lower extremities. Plan continue to run epidural solution
[2017-02-22 17:18] LABS: Glucose,Whole Blood 135 mg/dL (75-99)
[2017-02-22] MEDS: ZOLPIDEM 5 MG TAB PO SCH (22:50)
[2017-02-22] MEDS: diphenhydrAMINE 50 MG/ML 1 ML VIAL IVP PRN (22:54)
[2017-02-23] MEDS: diphenhydrAMINE 50 MG/ML 1 ML VIAL IVP PRN (05:11)
[2017-02-23] MEDS: LACTATED RINGERS 1,000 ML IV SCH ×2 (05:15→05:42)
[2017-02-23] MEDS: NALBUPHINE 10 MG/ML AMPUL IV PRN ×3 (05:43→17:42)
[2017-02-23] MEDS: HEPARIN SODIUM,PORCINE 5,000 UNIT/ML 1 ML VIAL SQ SCH ×3 (08:26→22:28)
[2017-02-23] MEDS: FAMOTIDINE 20 MG/2 ML VIAL IV SCH ×2 (08:26→20:04)
[2017-02-23] MEDS: ALVIMOPAN 12 MG CAPSULE PO SCH (08:26)
[2017-02-23 10:10] LABS: Basophils % (A) 1 %; CH 31.7; Eosinophils # (A) 0.1 k/uL (0-0.7); Eosinophils % (A) 1 %; HDW 2.66; HGB 13.9 gm/dL (13.0-17.5); Luc # (Auto) 0.07; Luc % (Auto) 1; Lymphocytes # (A) 2.3 k/uL (1.0-4.8); Lymphocytes % (A) 31 %; MCH 30.9 pg (25.0-35.0); MCV 99.7 fL (80.0-100.0); Macrocytosis Slight; Mean Platelet Volume 7.3; Monocytes # (A) 0.5 k/uL (0-1.0); Monocytes % (A) 7 %; Neutrophils # (A) 4.5 k/uL (1.3-7.7); Neutrophils % (A) 60 %; RBC 4.52 m/uL (4.30-5.90); RDW 15.3 % (11.5-15.5); WBC 7.5 k/uL (3.8-10.6); WBC (Perox) 7.16
[2017-02-23 10:11] LABS: ALT 44 U/L (21-72); AST 28 U/L (17-59); Alkaline Phosphatase 54 U/L (38-126); Anion Gap 9 mmol/L; Blood Urea Nitrogen 11 mg/dL (9-20); Calcium 8.8 mg/dL (8.4-10.2); Carbon Dioxide 28 mmol/L (22-30); Chloride 105 mmol/L (98-107); Glucose 97 mg/dL (74-99); Non-African American GFR(MDRD) >60 (>60 ml/min/1.73 sqM); Potassium 3.6 mmol/L (3.5-5.1); Sodium 142 mmol/L (137-145); Total Bilirubin 0.4 mg/dL (0.2-1.3); Total Protein 6.3 g/dL (6.3-8.2)
--- NOTE | 2017-02-23 10:15 | P.PN ---
Subjective Patient is a 50-year-old white male postop day #2 from a robotic-assisted laparoscopic sigmoid colectomy. At this time the patient has an epidural catheter in place and has no complaints of pain. He states he has had a bowel movement and is passing flatus. He is tolerating his diet which will be advanced. Objective - Vital Signs Vital signs: Vital Signs Temp 97.9 F 02/23/17 07:00 Pulse 77 02/23/17 07:00 Resp 16 02/23/17 07:00 BP 101/68 02/23/17 07:00 Pulse Ox 98 02/23/17 07:00 Intake & Output 02/22/17 02/23/17 02/23/17 18:59 06:59 18:59 Intake Total 1000 1312.5 Output Total 300 450 Balance 700 862.5 Intake: IV 1000 937.5 Lactated Ringers 1,000 ml 1000 937.5 @ 125 mls/hr IV .Q8H CEDRIC Rx#:[id number] Intake, IV Titration 375 Amount Lactated Ringers 1,000 ml 375 @ 125 mls/hr IV .Q8H CEDRIC Rx#:[id number] Output: Urine 50 450 Uretheral (Dunham) 50 450 Emesis 250 Other: Voiding Method Indwelling Catheter Indwelling Catheter Indwelling Catheter - Constitutional General appearance: Present: obese - Respiratory Respiratory: bilateral: CTA - Cardiovascular Rhythm: regular Heart sounds: normal: S1, S2 - Gastrointestinal Gastrointestinal Comment(s): Incisions clean and dry General gastrointestinal: Present: normal bowel sounds, soft - Psychiatric Psychiatric: Present: A&O x's 3, appropriate affect, intact judgment & insight - Labs CBC & Chem 7: 02/21/17 17:07 02/21/17 17:07 Labs: Abnormal Lab Results - Last 24 Hours (Table) 02/22/17 02/22/17 Range/Units 11:57 17:16 POC Glucose (mg/dL) 151 H 135 H (75-99) mg/dL Assessment and Plan Plan: Impression/plan: 1. 51-year-old white male POD #2 status post robotic-assisted laparoscopic sigmoid colon resection 2. Positive bowel activity 3. Probable DC epidural catheter/abdomen DC Dunham catheter 4. Advance diet
[2017-02-23] MEDS: HYDROcodone/APAP 5-325MG 1 EACH TAB PO PRN (18:19)
--- NOTE | 2017-02-23 21:18 | P.PN ---
Progress Note - Text 02/23 130 51-year-old male status post sigmoid colectomy. Patient has epidural solution running at 3 mL an hour, comfortable andambulating well.Plan DC epidural.
[2017-02-23] MEDS: ZOLPIDEM 5 MG TAB PO SCH (22:29)
[2017-02-24] MEDS: HYDROcodone/APAP 5-325MG 1 EACH TAB PO PRN ×3 (03:28→11:35)
[2017-02-24] MEDS: LACTATED RINGERS 1,000 ML IV SCH (05:29)
[2017-02-24 07:29] VITALS: BP 131/88; PULSE 99; RESP 16; TEMP 98.2
[2017-02-24] MEDS: FAMOTIDINE 20 MG/2 ML VIAL IV SCH (10:02)
[2017-02-24] MEDS: HEPARIN SODIUM,PORCINE 5,000 UNIT/ML 1 ML VIAL SQ SCH (10:04)
--- NOTE | 2017-02-24 10:06 | P.DS ---
Providers Date of admission: 02/21/17 07:46 Expected date of discharge: 02/24/17 Attending physician: Kourtney Clifton Primary care physician: [facility][1] Course: 51-year-old male presented with recurrent episodes of sigmoid diverticulitis. Patient did have a colonoscopy the day before the surgery it did not show any evidence of any neoplastic lesion. Patient elected to undergo robotic assisted laparoscopic sigmoid colectomy Done on February 21 at the time of discharge patient was up ambulatory on the unit surgical site no evidence of redness patient was tolerating a diet pain medication effective for pain control was felt to be appropriate to proceed with a discharge to home Impression discharge diagnosis Recurrent episodes of sigmoid diverticulitis Morbid obesity BMI 39 Laparoscopic robotic-assisted sigmoid colectomy Hyperlipidemia The above impression and plan of care have been discussed and directed by signing physician. Hanane Lockett nurse practitioner acting as scribe for signing physician. Plan - Discharge Summary Discharge Rx Participant: Yes New Discharge Prescriptions: New Docusate [Colace] 100 mg PO BID #30 capsule Hydrocodone/Acetaminophen [[place] 5-325] 1 each PO Q6HR PRN #30 tab PRN Reason: Pain HYDROcodone/APAP 5-325MG [[place] 5-325] 1 each PO Q4HR PRN #30 tab PRN Reason: Pain Continue Zolpidem Tartrate 10 mg PO HS Discontinued Levofloxacin [Levaquin] 500 mg PO DAILY #7 tab metroNIDAZOLE [Flagyl] 500 mg PO TID #21 tab Discharge Medication List Zolpidem Tartrate 10 mg PO HS 11/13/16 [History] Docusate [Colace] 100 mg PO BID #30 capsule 02/21/17 [Rx] Hydrocodone/Acetaminophen [[place] 5-325] 1 each PO Q6HR PRN #30 tab 02/21/17 [Rx] HYDROcodone/APAP 5-325MG [[place] 5-325] 1 each PO Q4HR PRN #30 tab 02/24/17 [Rx] Follow up Appointment(s)/Referral(s): Kourtney Clifton MD [STAFF PHYSICIAN] - 03/03/17 2:45 pm Activity/Diet/Wound Care/Special Instructions: OK to shower . No soaking bath. No heavy lifting more than 10 lbs for 6 weeks post surgery. No driving while taking narcotics for pain. May use ice packs for local pain relief Take Motrin 400 mg po TID after meals if pain is not controlled Use incentive spirometry 10 times an hour while awake Discharge Disposition: HOME SELF-CARE
[2017-02-24] MEDS ORDERED: FAMOTIDINE 20 MG TAB PO SCH (21:00)
== END 2017-02-24 13:00 | disposition home or self-care (01) | DRG 331 ==
LOC: 2ORWHC 07:46 → 3SUR 14:21
PROVIDERS: ADMIT Surgery; ATTEND Surgery
PROC: 0DJD8ZZ Inspection of Lower Intestinal Tract, Via Natural or Artificial Opening Endoscopic (ICD-10-PCS; 2017-02-21)
PROC: 0HB5XZZ Excision of Chest Skin, External Approach (ICD-10-PCS; 2017-02-21)
PROC: 0DTN4ZZ Resection of Sigmoid Colon, Percutaneous Endoscopic Approach (ICD-10-PCS; principal; 2017-02-21 09:45)
PROC: 8E0W4CZ Robotic Assisted Procedure of Trunk Region, Percutaneous Endoscopic Approach (ICD-10-PCS; 2017-02-21 09:45)
DX: K57.32 Diverticulitis of large intestine without perforation or abscess without bleeding (principal); E66.01 Morbid (severe) obesity due to excess calories; E78.00 Pure hypercholesterolemia, unspecified; G47.33 Obstructive sleep apnea (adult) (pediatric); L98.9 Disorder of the skin and subcutaneous tissue, unspecified; Z79.899 Other long term (current) drug therapy; Z79.1 Long term (current) use of non-steroidal anti-inflammatories (NSAID); Z87.891 Personal history of nicotine dependence
CPT/HCPCS: 80048; 80053; 80061; 83036; 85025; 86850; 86900; 86901; 88305; 88307

== ENCOUNTER → 2017-04-03 | Outpatient (CLI) | payer MEDICAID ==
[2017-04-03 12:45] LABS: Basophils # (A) 0.1 k/uL (0-0.2); Basophils % (A) 1 %; CH 31.3; CHCM 33.3; Eosinophils # (A) 0.2 k/uL (0-0.7); Eosinophils % (A) 2 %; HDW 2.87; HGB 14.1 gm/dL (13.0-17.5); Luc # (Auto) 0.28; Luc % (Auto) 4; Lymphocytes # (A) 2.8 k/uL (1.0-4.8); Lymphocytes % (A) 36 %; MCH 30.5 pg (25.0-35.0); MCHC 32.2 g/dL (31.0-37.0); MCV 94.7 fL (80.0-100.0); Mean Platelet Volume 6.6; Monocytes # (A) 0.6 k/uL (0-1.0); Monocytes % (A) 8 %; Neutrophils # (A) 3.9 k/uL (1.3-7.7); Neutrophils % (A) 49 %; RBC 4.64 m/uL (4.30-5.90); RDW 14.4 % (11.5-15.5); WBC 7.8 k/uL (3.8-10.6); WBC (Perox) 8.01
== END | disposition home or self-care (01) ==
LOC: LABWHC1 11:55
PROVIDERS: ATTEND Physician Assistant
DX: R79.0 Abnormal level of blood mineral (principal)
CPT/HCPCS: 36415; 85025

== ENCOUNTER → 2017-04-22 | Outpatient (CLI) | payer MEDICAID ==
[2017-04-22 17:30] LABS: HGB 13.8 gm/dL (13.0-17.5); MCHC 32.2 g/dL (31.0-37.0); MCV 96.5 fL (80.0-100.0); Platelet Count 260 k/uL (150-450); RBC 4.46 m/uL (4.30-5.90); RDW 14.3 % (11.5-15.5)
[2017-04-22 17:43] LABS: Anion Gap 8 mmol/L; Blood Urea Nitrogen 17 mg/dL (9-20); Carbon Dioxide 28 mmol/L (22-30); Chloride 104 mmol/L (98-107); Potassium 4.5 mmol/L (3.5-5.1); Sodium 140 mmol/L (137-145)
== END | disposition home or self-care (01) ==
LOC: LABPAT 16:29
PROVIDERS: ATTEND Internal Medicine Cardiovascular Disease
DX: Z01.812 Encounter for preprocedural laboratory examination (principal); I25.5 Ischemic cardiomyopathy
CPT/HCPCS: 36415; 80051; 82565; 84520; 85027

== ENCOUNTER 2017-04-25 10:48 | Day surgery (SDC) | payer MEDICAID ==
[2017-04-24 12:39] VITALS: BMI 41.8
[~2017-04-25 10:48] MED LIST changes: +ALPRAZolam 0.25 MG TAB PO PRN; +ASPIRIN 325 MG TAB PO ONE; -DEXAMETHASONE SOD PHOSPHATE 10 MG/ML 1 ML VIAL IV ONE; -HYDROmorphone 0.5 MG/0.5 ML SYRINGE IVP PRN; -LIDOCAINE 1% 20 ML VIAL (10MG/ML) FOR IV START INTRADERMA PRN; +NITROGLYCERIN SL TABS 0.4 MG TAB SUBLINGUAL PRN; -ONDANSETRON 4 MG/2 ML VIAL IVP ONE; -SCOPOLAMINE 1.5MG/72HR PATCH TRANSDERM ONE; +SODIUM CHLORIDE 0.9% 1,000 ML in EMPTY BAG 1 BAG IV ONE
[2017-04-25] MEDS ORDERED: LIDOCAINE 2% INJ 20 MG/ML (20 ML MDV) ONE (12:06)
[2017-04-25] MEDS: fentaNYL (PF) 50 MCG/ML 2 ML AMP IV ONE ×2 (12:13→12:24)
[2017-04-25] MEDS ORDERED: MIDAZOLAM 2 MG/2 ML VIAL ONE (12:13)
[2017-04-25] MEDS ORDERED: MIDAZOLAM 2 MG/2 ML VIAL IV ONE (12:14)
[2017-04-25] MEDS ORDERED: fentaNYL (PF) 50 MCG/ML 2 ML AMP ONE (12:15)
[2017-04-25] MEDS ORDERED: LIDOCAINE 2% INJ 20 MG/ML SQ ONE (12:20)
[2017-04-25] MEDS ORDERED: IOHEXOL 350 MG/ML 125ML BOTTLE INJ ONE (12:33)
[2017-04-25] MEDS ORDERED: RX INFO: IV CONTRAST WAS GIVEN 1 EACH MISC MISCELLANE PRN (12:44)
[2017-04-25] MEDS ORDERED: SODIUM CHLORIDE 0.9% 1,000 ML IV SCH (12:45)
[2017-04-25 13:09] VITALS: TEMP 97.8
[2017-04-25 15:24] VITALS: RESP 18
[2017-04-25 16:05] VITALS: BP 102/78; PULSE 112
--- NOTE | 2017-04-28 10:05 | P.PCN ---
Date of Procedure: 04/25/17 Preoperative Diagnosis: Cardiomyopathy and family history of ischemic heart disease and also atrial fibrillation Postoperative Diagnosis: Mild to moderate disease involving the mid LAD and the diagonal Procedure(s) Performed: Left heart catheterization with the left ventriculography Description of Procedure: HISTORY: This is a 52-year-old gentleman with history of cardiomyopathy and family history of ischemic heart disease and atrial fibrillation. Patient was evaluated by Dr. Krishnamurthy and a cardiac catheterization was requested to rule out underlying ischemic heart disease. CONSENT:I have discussed the risks, benefits and alternative therapies for the above-mentioned procedure and for both sedation/analgesia as well as necessary blood product administration, if indicated, as they pertain to this patient. The patient has indicated understanding and acceptance of the risks and procedures discussed. PROCEDURE: Patient was brought to the lab in a fasting state. Patient was given some IV sedation. The right groin is infiltrated with lidocaine and right femoral artery was entered using Seldinger technique. A 6-Slovenian catheter was left in place and selective coronary arteriography and left ventriculography was performed. Patient tolerated the procedure well. Femoral angiogram was performed and Angio-Seal was applied for hemostasis. No immediate complications were noted and patient was transferred to [facility] in a stable condition Conscious Sedation: Versed 0.5 mg Fentanyl 25 g Duration 18 minutes HEMODYNAMICS: The aortic pressure is about 100/70. There was no gradient across the aortic valve. Left ankle end-diastolic pressure is about 10-15 SELECTIVE CORONARY ARTERIOGRAPHY: LEFT MAIN: This is a normally length and patent. THE LEFT ANTERIOR DESCENDING CORONARY ARTERY: This is a good caliber vessel giving rise to good-sized first septal and diagonal branches. There is about 50-60% stenosis involving the mid LAD after the origin of the diagonal. The diagonal branch has about 70% ostial stenosis is a good caliber vessel. The rest of the LAD is free of occlusive disease THE LEFT CIRCUMFLEX AND IS CORONARY ARTERY:. This is a good caliber vessel giving rise good-sized OM branch. The circumflex and OM branch are free of any occlusive disease. THE RIGHT CORONARY ARTERY: Is a codominant vessel giving rise to PDA and PLV branches. The RCA and branch are free of occlusive disease LEFT VENTRICULOGRAPHY:. This was performed in 30 right oblique projection. The left ventricle is mildly dilated. The generalized hypokinesia with an ejection fraction probably about 40%. FINAL IMPRESSION: Moderate coronary artery disease with about 60% stenosis of the mid LAD and about 70% stenosis of the ostium of the first diagonal. The rest of the coronary system is free of occlusive disease. PLAN: The films were reviewed with Dr. Najera. Because of the location of the lesion in the diagonal and nonsignificant lesion in the LAD, maximum medical therapy suggested. No intervention is sized at this time PROGNOSIS: Guarded
== END 2017-04-25 17:14 | disposition home or self-care (01) ==
LOC: CATHCVL 10:48
PROVIDERS: ATTEND Internal Medicine Cardiovascular Disease
DX: I25.10 Atherosclerotic heart disease of native coronary artery without angina pectoris (principal); I42.9 Cardiomyopathy, unspecified; I48.1 Persistent atrial fibrillation; E66.01 Morbid (severe) obesity due to excess calories; Z68.41 Body mass index [BMI] 40.0-44.9, adult; Z82.49 Family history of ischemic heart disease and other diseases of the circulatory system; Z79.01 Long term (current) use of anticoagulants; Z79.82 Long term (current) use of aspirin; Z79.899 Other long term (current) drug therapy; Z87.891 Personal history of nicotine dependence
CPT/HCPCS: 93458; C1760; C1894; C1769; J2001; J2250; J3010; Q9967

== ENCOUNTER 2017-06-02 11:39 | Inpatient (IN) | payer MEDICAID ==
[2017-06-03 12:26] LABS: Anion Gap 10 mmol/L; Blood Urea Nitrogen 24 mg/dL (9-20); Calcium 8.6 mg/dL (8.4-10.2); Carbon Dioxide 21 mmol/L (22-30); Chloride 106 mmol/L (98-107); Glucose 136 mg/dL (74-99); Sodium 137 mmol/L (137-145)
[2017-06-03 12:27] LABS: Potassium 5.6 mmol/L (3.5-5.1)
[2017-06-03] MEDS: MAGNESIUM SULFATE-D5W PMX 1 GM in DEXTROSE/WATER 1 100ML.BAG IVPB SCH ×2 (16:04→18:23)
[2017-06-03] MEDS: RIVAROXABAN 20 MG TAB PO SCH (20:21)
[2017-06-03] MEDS: DOCUSATE 100 MG CAP PO SCH (20:21)
[2017-06-03] MEDS: ATORVASTATIN 20 MG TAB PO SCH (20:21)
[2017-06-03] MEDS: SOTALOL 80 MG TAB PO SCH (20:22)
[2017-06-03] MEDS ORDERED: SOTALOL 80 MG TAB PO SCH (21:00)
[2017-06-03] MEDS: ZOLPIDEM 10 MG TAB PO SCH (23:07)
[2017-06-04 06:29] LABS: Anion Gap 8 mmol/L; Blood Urea Nitrogen 23 mg/dL (9-20); Calcium 8.8 mg/dL (8.4-10.2); Carbon Dioxide 30 mmol/L (22-30); Chloride 103 mmol/L (98-107); Glucose 152 mg/dL (74-99); Potassium 4.9 mmol/L (3.5-5.1); Sodium 141 mmol/L (137-145)
[2017-06-04] MEDS: DOCUSATE 100 MG CAP PO SCH ×2 (08:52→20:24)
[2017-06-04] MEDS: ASPIRIN 81 MG PO SCH (08:52)
[2017-06-04] MEDS: SODIUM CHLORIDE 0.9% 1,000 ML IV SCH (08:52)
[2017-06-04] MEDS: SOTALOL 80 MG TAB PO SCH ×2 (08:53→20:24)
[2017-06-04] MEDS: METOPROLOL SUCCINATE (ER) 100 MG TAB.ER.24H PO SCH (08:53)
[2017-06-04] MEDS: MAGNESIUM OXIDE 400 MG TAB PO SCH (09:00)
[2017-06-04] MEDS ORDERED: MIDAZOLAM 2 MG/2 ML VIAL ONE (13:26)
[2017-06-04] MEDS ORDERED: fentaNYL (PF) 50 MCG/ML 2 ML AMP ONE (13:26)
--- NOTE | 2017-06-04 19:48 | CONS ---
CONSULTATION Mr. Doe is a 52-year-old male patient who has known persistent atrial fibrillation and cardiomyopathy. He was admitted for evaluation, management of atrial fibrillation and predominantly nonischemic cardiomyopathy. The patient's main symptoms are tiredness and fatigue and shortness of breath and exertion. He has persistent atrial fibrillation and is on metoprolol succinate 100 mg daily along with digoxin at home. He also has global nonischemic cardiomyopathy and 1- vessel nonobstructive coronary artery disease by coronary angiography that was performed in April 2017 on medical treatment. His followup 24-hour Holter monitor showed suboptimal rate control on a high dose of verapamil. The medication was subsequently changed to metoprolol once his cardiomyopathy was detected. His left ventricular ejection fraction is about 40%, global hypokinesis. Left atrium was mildly dilated as an outpatient. Losartan was added. REVIEW OF SYSTEMS: No fever, chills or rigors. No cough or expectoration. No nausea, vomiting, diarrhea, hematuria or dysuria. No strokes, seizures or skin lesions. No musculoskeletal complaints. MEDICATIONS AT HOME ON ADMISSION: 1. Xarelto 20 mg p.o. daily. 2. Toprol-XL 100 mg daily. 3. Digoxin 0.125 mg daily. 4. Lipitor 20 mg daily. 5. Aspirin and. 6. Losartan 25 mg p.o. daily. ALLERGIES: No known drug allergies. LABS: Reviewed. repeat labs showed potassium 4.9, BUN 23, creatinine 1.65, glucose is elevated. Magnesium initially was 1.7 and subsequently 2.1. His magnesium was replaced. EXAMINATION: His blood pressure is 122/77, afebrile at 96.8, pulse rate of 80 per minute, respirations are normal, nonlabored. No JVD. No thyromegaly. No hepatic jugular reflux. Heart sounds are irregular, but normal. Breath sounds are clear. ABDOMEN: Soft, nontender. Extremities are warm no edema. Increased BMI noted. BMI is 42.7. Twelve-lead ECG was reviewed and shows atrial fibrillation, narrow QRS. IMPRESSION: 1. Persistent atrial fibrillation. 2. Nonischemic cardiomyopathy. 3. One-vessel nonobstructive coronary artery disease. 4. Morbid obesity. SUGGEST: Admit to the hospital for sotalol loading. Stop digoxin, but continue metoprolol succinate and continue losartan. Continue Xarelto. Subsequently antral isolation of the pulmonary veins will be performed and we will watch him on telemetry and discharged home on low-dose sotalol and attempt maintaining a sinus rhythm with a combination of pulmonary vein isolation along with sotalol and watch for any improvement in LV function. Hopefully, his LV function is most likely from arrhythmia-related cardiomyopathy. ROJELIO / SANDHYA: [id number] /
[2017-06-04] MEDS: ATORVASTATIN 20 MG TAB PO SCH (20:24)
[2017-06-04] MEDS: RIVAROXABAN 20 MG TAB PO SCH (20:24)
[2017-06-04] MEDS: ZOLPIDEM 10 MG TAB PO SCH (23:14)
[2017-06-05] MEDS ORDERED: RIVAROXABAN 20 MG TAB PO STA (05:40)
[2017-06-05] MEDS: SOTALOL 80 MG TAB PO SCH ×2 (05:56→20:59)
[2017-06-05] MEDS: DOCUSATE 100 MG CAP PO SCH ×2 (05:57→19:58)
[2017-06-05] MEDS: MAGNESIUM OXIDE 400 MG TAB PO SCH (05:57)
[2017-06-05] MEDS: ASPIRIN 81 MG PO SCH (05:57)
[2017-06-05] MEDS: LOSARTAN 25 MG TAB PO SCH (05:57)
[2017-06-05] MEDS: METOPROLOL SUCCINATE (ER) 100 MG TAB.ER.24H PO SCH (05:57)
[2017-06-05 05:58] LABS: Glucose,Whole Blood 126 mg/dL (75-99)
[2017-06-05 06:24] LABS: Anion Gap 8 mmol/L; Blood Urea Nitrogen 22 mg/dL (9-20); Calcium 8.8 mg/dL (8.4-10.2); Carbon Dioxide 26 mmol/L (22-30); Chloride 104 mmol/L (98-107); Glucose 135 mg/dL (74-99); Potassium 4.7 mmol/L (3.5-5.1); Sodium 138 mmol/L (137-145)
[2017-06-05] MEDS: SODIUM CHLORIDE 0.9% 1,000 ML IV SCH ×2 (08:37→21:43)
[2017-06-05] MEDS ORDERED: HYDROmorphone (PF) 1 MG/ML ONE (12:01)
[2017-06-05] MEDS ORDERED: LIDOCAINE 1% INJ 10MG/ML (20 ML MDV) ONE (12:01)
[2017-06-05] MEDS ORDERED: SUCCINYLCHOLINE CHLORIDE 100 MG/5 ML SYR IV ONE (12:01)
[2017-06-05] MEDS ORDERED: MIDAZOLAM 2 MG/2 ML VIAL ONE (12:01)
[2017-06-05] MEDS ORDERED: PROTAMINE SULFATE 10 MG/ML 5 ML VIAL IV ONE (12:01)
[2017-06-05] MEDS ORDERED: PROPOFOL 10 MG/ML 20 ML VIAL IV ONE (12:01)
[2017-06-05] MEDS ORDERED: fentaNYL (PF) 50 MCG/ML 2 ML AMP ONE (12:01)
[2017-06-05] MEDS ORDERED: PHENYLEPHRINE-0.9% NACL SYG 1 MG/10 ML SYRINGE ONE (12:01)
[2017-06-05] MEDS ORDERED: HEPARIN SODIUM,PORCINE 10,000 UNIT/ML 1 ML VIAL ONE (12:01)
[2017-06-05] MEDS ORDERED: IV FLUID CONTINUATION 400 ML IV ONE (12:24)
[2017-06-05] MEDS ORDERED: LIDOCAINE 2% INJ 20 MG/ML SQ ONE (12:44)
[2017-06-05] MEDS ORDERED: HEPARIN SOD,PORK IN 0.45% NACL 25,000 UNIT in 0.45% NACL 1 500ML.BAG IV ONE (12:47)
[2017-06-05] MEDS ORDERED: LACTATED RINGERS 1,000 ML IV ONE (13:21)
[2017-06-05] MEDS ORDERED: HYDROcodone/APAP 5-325MG 1 EACH TAB PO PRN (14:53)
[2017-06-05] MEDS ORDERED: IOHEXOL 350 MG/ML (PER ML) 100ML BTL INJ ONE (14:55)
--- NOTE | 2017-06-05 15:25 | P.PCN ---
Preoperative Diagnosis: Procedures performed (PVI - CRYO Ablation) Invasive hemodynamic monitoring while general anesthesia, right femoral arterial line for monitoring and sampling Comprehensive diagnostic EP study CS pacing and recording Drug infusion Catheter the mapping of the tachycardia (NOT 3D mapping) Intracardiac echocardiography Pulmonary vein isolation with transseptal and comprehensive EPS, [id number] Procedure details Patient was brought to the EP lab in a fasting state. Written informed consent was obtained prior to the procedure. Procedure performed under general anesthesia After initial muscle relaxant use, muscle relaxants were not given thereafter in order to assess phrenic nerve during procedure Patient prepped and draped as per protocol Full cryo-set up with standard preparation of the cryoablation tools done Femoral Venous access obtained on the right and left groins Sheaths placed Diagnostic catheters for the high right atrium, phrenic nerve stimulation and pacing, His bundle, RV and coronary sinus placed Intracardiac echo catheter placed Long sheath placed in the right atrium Left and right transseptal catheterization performed under intracardiac echo guidance Intravenous heparin with aCT above 300 Later, catheter positioning and balloon positioning under intracardiac echo Baseline measurements QRS 95, QT 339, at the end of the procedure absolute QT interval 460 ms Cath was placed in coronary sinus, hypertension, His bundle area Transseptal catheterization performed RA pressure 18/15 LA pressure 24/16 Transseptal catheterization performed with standard sheath. The cryoablation sheath was then placed with an over the wire exchange without any acute complications. All 4 pulmonary veins were isolated in the following sequence: Left superior followed by left inferior followed by right superior followed by right inferior The cryo-ablation balloon was placed at the os of each vein 1.5 mL of IV dye was injected to confirm an occluded vein Goal during cryoablation was to achieve -30C in the first 30 seconds. If not the balloon was repositioned to obtain this result After completion of Cryoblation with durations from 180-240 seconds, entrance block was confirmed with the Attain circular catheter in a roving fashion around the antrum of the pulmonary veins Phrenic nerve pacing was performed from the SVC, right innominate vein area and diaphragm voltage was monitored as well as manually Parameter goals for each cryo freeze -30C by 30 seconds -40C by 60 seconds Mediated between minus 40-55 Thaw time greater than 10 seconds Balloon visualized by intracardiac echo to ensure that the proximal one third was within the left atrium/antrum Left superior pulmonary vein 4 minute cryo lesion complete isolation Left inferior pulmonary vein 4 minute cryo lesion complete isolation Right superior pulmonary vein, during phrenic nerve pacing 3 cryo lesions, 3 minutes followed by 3 minutes followed by 2 minutes with complete isolation Right inferior pulmonary vein, during phrenic nerve pacing 2 cryo lesions, 3 minutes each complete isolation At the end of the procedure the Achieve catheter was once again used to check for entrance block Phrenic nerve stimulation was performed to confirm diaphragmatic stimulation the end of the procedure Cine fluoroscopy was performed at the very end of the procedure to confirm movement of both diaphragms with inspiration and expiration At the end of the procedure the patient was extubated Heparin was reversed Venous sheaths were removed and hemostasis assured Result Successful pulmonary vein isolation using cryo-ablation Complete entrance block in all 4 veins confirmed No evidence for phrenic nerve injury Right-sided esophagus, successfully deflected without any significant drop in esophageal temperatures
[2017-06-05 15:31] LABS: Glucose,Whole Blood 132 mg/dL (75-99)
[2017-06-05] MEDS ORDERED: ACETAMINOPHEN IV (For NPO) 1,000 MG in EMPTY BAG 1 BAG IVPB ONE (16:00)
[2017-06-05 18:41] VITALS: RESP 16
[2017-06-05] MEDS ORDERED: RX INFO: IV CONTRAST WAS GIVEN 1 EACH MISC MISCELLANE PRN (19:45)
[2017-06-05] MEDS: RIVAROXABAN 20 MG TAB PO SCH (19:58)
[2017-06-05] MEDS: ATORVASTATIN 20 MG TAB PO SCH (19:59)
[2017-06-05] MEDS ORDERED: SODIUM CHLORIDE 0.9% 250 ML IV ONE (20:59)
[2017-06-05] MEDS ORDERED: SOTALOL 80 MG TAB PO STA (21:01)
[2017-06-05] MEDS ORDERED: ACETAMINOPHEN TAB 325 MG TAB PO PRN (22:00)
[2017-06-05] MEDS: ZOLPIDEM 10 MG TAB PO SCH (23:18)
[2017-06-06 06:17] LABS: Basophils % (A) 0 %; Eosinophils # (A) 0.1 k/uL (0-0.7); Eosinophils % (A) 1 %; HCT 39.3 % (39.0-53.0); HGB 13.3 gm/dL (13.0-17.5); Lymphocytes # (A) 2.2 k/uL (1.0-4.8); Lymphocytes % (A) 22 %; MCH 31.8 pg (25.0-35.0); MCHC 33.8 g/dL (31.0-37.0); MCV 94.1 fL (80.0-100.0); Mean Platelet Volume 6.6; Monocytes # (A) 0.7 k/uL (0-1.0); Monocytes % (A) 7 %; Neutrophils # (A) 6.7 k/uL (1.3-7.7); Neutrophils % (A) 68 %; Platelet Count 234 k/uL (150-450); RBC 4.18 m/uL (4.30-5.90); RDW 13.2 % (11.5-15.5); WBC 9.8 k/uL (3.8-10.6)
[2017-06-06 06:40] LABS: Anion Gap 7 mmol/L; Blood Urea Nitrogen 27 mg/dL (9-20); Calcium 8.5 mg/dL (8.4-10.2); Carbon Dioxide 26 mmol/L (22-30); Chloride 104 mmol/L (98-107); Glucose 143 mg/dL (74-99); Sodium 137 mmol/L (137-145)
--- NOTE | 2017-06-06 08:01 | P.DS ---
Providers Date of admission: 06/03/17 11:10 Attending physician: Boogie Krishnamurthy Primary care physician: [facility] Course: Patient is doing well. Yesterday his blood pressure was low and was persistently low despite removing the FemoStop from his right groin I gave him 250 cc of saline. This morning his blood pressure has improved and he is resting comfortably in bed. Hemoglobin is 13.3 potassium is 5.0 sodium 137 BUN 27 creatinine 1.02 glucose is elevated Heart sounds are normal no rub no gallop no murmurs Breath sounds are clear no rhonchi no crackles abdomen is soft Groins appeared well no hematoma minimal tenderness. Impression Persistent atrial fibrillation Nonischemic cardio myopathy Nonobstructive CAD Morbid obesity Admitted for atrial fibrillation management Sotalol initiated 80 mg twice daily Cryoablation of all pulmonary veins performed with complete entrance block Intracardiac echo did not reveal any pericardial effusion during or after the procedure. Follow-up 2-D echo did not reveal any pericardial effusion ejection fraction seems to have improved in sinus rhythm to about 45% Plan CT of the chest with contrast today to evaluate for persistent hypotension in the absence of a pericardial effusion/evaluate for any thoracic injury during ablation and during esophageal resection Stop digoxin Reduce metoprolol succinate 250 mrem daily Sotalol 80 mg twice daily Continue Xarelto normal of the heart failure medications Likely dischargeIf stable, by 5 PM Plan - Discharge Summary Discharge Rx Participant: Yes New Discharge Prescriptions: New Metoprolol Succinate [Toprol XL] 50 mg PO DAILY #90 tab.er.24h Discontinued Metoprolol Succinate (ER) [Toprol Xl] 100 mg PO QAM Digoxin [Digitek] 125 mcg PO QAM No Action Zolpidem Tartrate 10 mg PO HS Aspirin [Adult Low Dose Aspirin EC] 81 mg PO DAILY Stool Sofenter Otc 250 mg PO BID Sotalol [Betapace] 80 mg PO BID Rivaroxaban [Xarelto] 20 mg PO HS Atorvastatin [Lipitor] 20 mg PO HS Discharge Medication List Zolpidem Tartrate 10 mg PO HS 11/13/16 [History] Aspirin [Adult Low Dose Aspirin EC] 81 mg PO DAILY 04/24/17 [History] Stool Sofenter Otc 250 mg PO BID 04/24/17 [History] Atorvastatin [Lipitor] 20 mg PO HS 06/03/17 [History] Rivaroxaban [Xarelto] 20 mg PO HS 06/03/17 [History] Sotalol [Betapace] 80 mg PO BID 06/03/17 [History] Metoprolol Succinate [Toprol XL] 50 mg PO DAILY #90 tab.er.24h 06/05/17 [Rx] Follow up Appointment(s)/Referral(s): Boogie Krishnamurthy MD [STAFF PHYSICIAN] - 1 Week Patient Instructions/Handouts: Cardiac Ablation (DC) Activity/Diet/Wound Care/Special Instructions: Post EP study - Ablation instructions 1. Keep access sites dry for 2 days. 2. No heavy lifting or straining for 2 days. 3. Avoid bending the hips repeatedly for 2 days. 4. You may go up and down stairs slowly Call if the following is noted 1. Bleeding, increasing swelling or pain at the access sites. 2. Increasing chest discomfort, especially upon taking a deep breath. 3. Increasing shortness of breath, at rest or with exertion. 4. Undue cough / phlegm 5. Difficulty or pain while swallowing. 6. Pain or change in color in the extremities. 7. Fever, chills, rigors. 8. Increasing headache or neurologic symptoms. 9. Dizziness, fainting, palpitations New medication Sotalol 80 mg twice daily Reduced dose of metoprolol succinate: 50 mg by mouth daily Stop digoxin Discharge Disposition: HOME SELF-CARE
[2017-06-06 08:04] VITALS: PULSE 68; TEMP 97.1
[2017-06-06] MEDS: ASPIRIN 81 MG PO SCH (08:05)
[2017-06-06] MEDS: MAGNESIUM OXIDE 400 MG TAB PO SCH (08:05)
[2017-06-06] MEDS: DOCUSATE 100 MG CAP PO SCH (08:05)
[2017-06-06] MEDS: SOTALOL 80 MG TAB PO SCH (08:06)
[2017-06-06] MEDS: LOSARTAN 25 MG TAB PO SCH (08:06)
[2017-06-06] MEDS ORDERED: METOPROLOL SUCCINATE (ER) 50 MG TAB.ER.24H PO SCH (09:00)
--- NOTE | 2017-06-06 11:22 | ECHOF ---
Referral Reason:r/o pericardial effusion MEASUREMENTS -------- HEIGHT: 182.9 cm WEIGHT: 141.5 kg BP: 96/51 RAP: 5.00 mmHg RVSP: 26.20 mmHg FINDINGS -------- Limited Study Overall left ventricular systolic function is mild-moderately impaired with, an EF between 40 - 45 %. There is no pericardial effusion. CONCLUSIONS -------- 1. Limited Study 2. Overall left ventricular systolic function is mild-moderately impaired with, an EF between 40 - 45 %. 3. There is no pericardial effusion. LEARNING DISABILITIES TEACHER: Luciana Wise RDCS
--- NOTE | 2017-06-06 11:40 | CT ---
EXAMINATION TYPE: CT chest w con DATE OF EXAM: 06/06/2017 COMPARISON: CTA chest March 04, 2017. HISTORY: Post cardio ablation rule out atrial esophageal fistula. CT DLP: 670.9 mGycm. Automated Exposure Control for Dose Reduction was Utilized. TECHNIQUE: CT scan of the thorax is performed following with IV Contrast, patient injected with 100 mL of Omnipaque 300. FINDINGS: LUNGS: Mild apical pleural/parenchymal scarring with medial right apical bleb is redemonstrated. Th ere is no pleural effusion or pneumothorax seen. The tracheobronchial tree is patent. MEDIASTINUM: There are no greater than 1 cm hilar or mediastinal lymph nodes. No pericardial effusi on is seen. There is persistent mild cardiomegaly. There is indistinct fat plane from posterior wall left atrium and anterior wall esophagus but this is unchanged from prior CT. There is some nonspecif ic ill-defined fluid redemonstrated at this level coronal image 66 also not significantly changed fro m prior CT. No new mediastinal air is present. No IV contrast extends into esophagus. Esophagus shows no suspicious surrounding fat stranding. Stable small hiatal hernia is present. OTHER: There is mild multilevel spurring in the thoracic spine. IMPRESSION: No convincing CT evidence for complication related to recent ablation. No significant hope nge from most recent CT.
[2017-06-06 12:10] VITALS: BP 98/65
== END 2017-06-06 15:12 | disposition home or self-care (01) | DRG 274 ==
LOC: 6SEL 06-03 11:10
PROVIDERS: ADMIT Internal Medicine Clinical Cardiac Electrophysiology; ATTEND Internal Medicine Clinical Cardiac Electrophysiology
PROC: 4A023FZ Measurement of Cardiac Rhythm, Percutaneous Approach (ICD-10-PCS; principal; 2017-06-03)
PROC: 5A2204Z Restoration of Cardiac Rhythm, Single (ICD-10-PCS; principal; 2017-06-03)
PROC: 4A0234Z Measurement of Cardiac Electrical Activity, Percutaneous Approach (ICD-10-PCS; principal; 2017-06-03)
PROC: 02583ZZ Destruction of Conduction Mechanism, Percutaneous Approach (ICD-10-PCS; principal; 2017-06-03)
DX: I48.1 Persistent atrial fibrillation (principal); E66.01 Morbid (severe) obesity due to excess calories; I42.9 Cardiomyopathy, unspecified; I50.9 Heart failure, unspecified; I25.10 Atherosclerotic heart disease of native coronary artery without angina pectoris; Z79.01 Long term (current) use of anticoagulants; Z79.82 Long term (current) use of aspirin; Z79.899 Other long term (current) drug therapy
CPT/HCPCS: 71260; 80048; 83735; 85025; 85347; 93308; 93609; 93623; 93656; 93662

== ENCOUNTER → 2017-06-17 | Outpatient (CLI) | payer MEDICAID ==
--- NOTE | 2017-06-17 19:16 | PN ---
PROGRESS NOTE This is a 52-year-old male patient with mild obstructive sleep apnea with an AHI of 11, positional, worse in the supine body position, with an AHI of 28 based on a sleep study that was done in 2016. The patient also has chronic insomnia and the patient has been maintained on Ambien. Based on the mild nature of the obstructive sleep apnea, we decided not to offer the patient any treatment back then, and he was advised to lose weight. He was doing well. He was taking Ambien and he was achieving a good 7 to 8 hours of sleep. I came to understand that recently the patient was involved in atrial fibrillation with rapid ventricular response. He was admitted to the hospital and subsequently underwent cardiac ablation. Currently he is in sinus rhythm. He is on Xarelto and sotalol and metoprolol. His weight has been essentially stable, but he continues to have the snoring, especially when he sleeps on his back. He is able to achieve a good 7 to 8 hours of sleep with the Ambien and his [place] score is 12. No major hypersomnia or sleepiness during the day. MEDICATIONS: 1. Ambien 10 mg at bedtime. 2. Lipitor 20 mg p.o. daily. 3. Metoprolol 50 mg p.o. daily. 4. Sotalol 80 mg p.o. daily. 5. Xarelto 20 mg p.o. daily. 6. Baby aspirin. PAST SURGICAL HISTORY: 1. Cardiac catheterization with cryoablation of atrial fibrillation. 2. Colon resection for a colonic abscess. REVIEW OF SYSTEMS: Twelve-point review of system was done. His weight has been stable. No fever. No chills. No grinding of the teeth. No anxiety or depression. No palpitations. No chest pain. No exertional dyspnea. No nausea, vomiting or heartburn. No dysuria, frequency, urgency. No falls. No wound ulcerations. No cellulitis. No arthritis. PHYSICAL EXAMINATION: BP is 114/75, pulse 62, respirations 16, temperature 98.5, saturation 95% on room air. BMI is 44.4. Weight is 319. Height is 5 feet 11 inches. [place] score is 12. GENERAL APPEARANCE: Calm, comfortable. Head is atraumatic, normocephalic. Neck is short, supple. There is no goiter or neck masses. No JVD. LUNGS: Clear to auscultation. Heart sounds are regular rate and rhythm. Normal S1, S2. No S3, S4. No murmurs. ABDOMEN: Soft, nontender. No organomegaly. EXTREMITIES: No edema. No cyanosis or clubbing. NEUROLOGIC: Alert and oriented x3. No focal neurological deficit. PSYCHIATRIC: The patient has appropriate mood and affect. IMPRESSION: 1. Obstructive sleep apnea, mild, positional, with an AHI of 11. May need to be re- investigated with a home sleep study, especially with his recent onset atrial fibrillation. 2. Chronic insomnia, on Ambien, achieving a good 6 to 7 hours of sleep every night. 3. New onset atrial fibrillation, status post ablation, and current rhythm is sinus. 4. Recent colectomy for a bowel abscess. 5. Hyperlipidemia. 6. Obesity with a body mass index of 44.4. PLAN: 1. We will proceed with a home sleep study to re-evaluate the severity of obstructive sleep apnea and make recommendations accordingly, especially in light of the recent atrial fibrillation. 2. Renew Ambien. 3. Recommend weight loss. 4. Positional therapy, as the patient is sleeping on his side. 5. Will continue to follow. See me back in a year's time, earlier if needed, in regard to his insomnia/obstructive sleep apnea. MMODL / IJN: [id number] /
== END | disposition home or self-care (01) ==
LOC: SLEEP 15:52
PROVIDERS: ATTEND Internal Medicine Critical Care Medicine
DX: G47.33 Obstructive sleep apnea (adult) (pediatric) (principal); I48.91 Unspecified atrial fibrillation; E78.5 Hyperlipidemia, unspecified; E66.9 Obesity, unspecified; Z68.41 Body mass index [BMI] 40.0-44.9, adult; Z98.890 Other specified postprocedural states; Z79.82 Long term (current) use of aspirin; Z79.899 Other long term (current) drug therapy; Z90.49 Acquired absence of other specified parts of digestive tract; Z98.61 Coronary angioplasty status

== ENCOUNTER → 2017-06-20 | Outpatient (CLI) | payer MEDICAID ==
--- NOTE | 2017-06-20 13:14 | XR ---
EXAMINATION TYPE: XR chest 2V DATE OF EXAM: 06/20/2017 COMPARISON: 02/24/2017 TECHNIQUE: PA and lateral views submitted. HISTORY: Cough FINDINGS: The lungs are clear and there is no pneumothorax, pleural effusion, or focal pneumonia. Biapical pl eural thickening. Arthropathy of the shoulders. No overt failure. IMPRESSION: 1. No acute process.
== END | disposition home or self-care (01) ==
LOC: RADXRMAIN 12:55
PROVIDERS: ATTEND Physician Assistant
DX: R05 Cough (principal)
CPT/HCPCS: 71046

== ENCOUNTER → 2017-09-19 | Outpatient (CLI) | payer MEDICAID ==
[2017-09-19 16:57] LABS: Anion Gap 10 mmol/L; Blood Urea Nitrogen 15 mg/dL (9-20); Calcium 9.1 mg/dL (8.4-10.2); Carbon Dioxide 27 mmol/L (22-30); Chloride 103 mmol/L (98-107); Glucose 98 mg/dL (74-99); Magnesium 1.8 mg/dL (1.6-2.3); Potassium 4.1 mmol/L (3.5-5.1); Sodium 140 mmol/L (137-145)
== END | disposition home or self-care (01) ==
LOC: LABWHC1 16:24
PROVIDERS: ATTEND Nurse Practitioner Adult Health
DX: I10 Essential (primary) hypertension (principal)
CPT/HCPCS: 36415; 80048; 83735

== ENCOUNTER → 2018-01-14 | Outpatient (CLI) | payer MEDICAID ==
[2018-01-14 08:22] LABS: Basophils % (A) 1 %; Eosinophils # (A) 0.1 k/uL (0-0.7); Eosinophils % (A) 2 %; HCT 41.7 % (39.0-53.0); HGB 13.9 gm/dL (13.0-17.5); Lymphocytes # (A) 2.3 k/uL (1.0-4.8); Lymphocytes % (A) 43 %; MCH 31.2 pg (25.0-35.0); MCHC 33.4 g/dL (31.0-37.0); MCV 93.4 fL (80.0-100.0); Mean Platelet Volume 6.9; Monocytes # (A) 0.4 k/uL (0-1.0); Monocytes % (A) 8 %; Neutrophils # (A) 2.3 k/uL (1.3-7.7); Neutrophils % (A) 44 %; Platelet Count 250 k/uL (150-450); RBC 4.47 m/uL (4.30-5.90); RDW 12.5 % (11.5-15.5); WBC 5.2 k/uL (3.8-10.6)
[2018-01-14 08:29] LABS: Appearance,Urine Clear (Clear); Bilirubin,Urine Negative (Negative); Blood,Urine Negative (Negative); Color,Urine Yellow; Glucose,Urine (UA) Negative (Negative); Ketones,Urine Negative (Negative); Leukocyte Esterase,Urine Negative (Negative); Nitrite,Urine Negative (Negative); Protein,Urine Trace (Negative); Specific Gravity,Urine 1.027 (1.001-1.035); Urobilinogen,Urine <2.0 mg/dL (<2.0)
[2018-01-14 08:40] LABS: ALT 37 U/L (21-72); AST 28 U/L (17-59); Albumin 3.6 g/dL (3.5-5.0); Alkaline Phosphatase 61 U/L (38-126); Anion Gap 8 mmol/L; Blood Urea Nitrogen 22 mg/dL (9-20); Calcium 8.7 mg/dL (8.4-10.2); Carbon Dioxide 25 mmol/L (22-30); Chloride 108 mmol/L (98-107); Cholesterol 147 mg/dL (<200); Glucose 150 mg/dL (74-99); HDL Cholesterol 42 mg/dL (40-60); LDL Cholesterol,Calculated 86 mg/dL (0-99); Potassium 4.6 mmol/L (3.5-5.1); Sodium 141 mmol/L (137-145); Total Bilirubin 0.4 mg/dL (0.2-1.3); Total Protein 6.5 g/dL (6.3-8.2); Triglycerides 94 mg/dL (<150)
[2018-01-14 11:53] LABS: Prostate Specific Antigen 0.87 ng/mL (0.00-4.00)
[2018-01-14 17:47] LABS: Hemoglobin A1C 6.7 % (4.0-6.0)
== END | disposition home or self-care (01) ==
LOC: LABWHC1 06:36
PROVIDERS: ATTEND Nurse Practitioner Adult Health
DX: Z00.01 Encounter for general adult medical examination with abnormal findings (principal); E66.9 Obesity, unspecified; E78.00 Pure hypercholesterolemia, unspecified; I10 Essential (primary) hypertension
CPT/HCPCS: 36415; 80053; 80061; 81003; 83036; 83735; 84153; 85025

== ENCOUNTER → 2018-04-08 | Outpatient (CLI) | payer MEDICAID ==
[2018-04-08 08:47] LABS: HCT 43.6 % (39.0-53.0); HGB 14.2 gm/dL (13.0-17.5); MCH 31.4 pg (25.0-35.0); MCHC 32.5 g/dL (31.0-37.0); MCV 96.5 fL (80.0-100.0); Mean Platelet Volume 6.6; Platelet Count 257 k/uL (150-450); RBC 4.52 m/uL (4.30-5.90); RDW 12.8 % (11.5-15.5); WBC 5.6 k/uL (3.8-10.6)
[2018-04-08 16:22] LABS: Anion Gap 7.1 mmol/L (4.00-12.00); Calcium 8.7 mg/dL (8.7-10.3); Carbon Dioxide 25.9 mmol/L (21.6-31.8); Potassium 4.8 mmol/L (3.5-5.5)
[2018-04-08 18:09] LABS: Hemoglobin A1C 5.9 % (4.0-6.0)
== END | disposition home or self-care (01) ==
LOC: LABWHC1 07:08
PROVIDERS: ATTEND Family Medicine
DX: I48.0 Paroxysmal atrial fibrillation (principal); E11.9 Type 2 diabetes mellitus without complications; E78.00 Pure hypercholesterolemia, unspecified
CPT/HCPCS: 36415; 80048; 83036; 84450; 84460; 85027

== ENCOUNTER → 2018-07-14 | Outpatient (CLI) | payer MEDICAID ==
--- NOTE | 2018-07-14 21:52 | CT ---
EXAMINATION TYPE: CT sinus wo con DATE OF EXAM: 07/14/2018 COMPARISON: NONE HISTORY: Sinus congestion and infection per patient. Chronic sinusitis per order. CT DLP: 635 mGycm. Automated Exposure Control for Dose Reduction was Utilized. TECHNIQUE: CT scan of the sinuses is performed without contrast, axial images are obtained, coronal r eformatted images are also reviewed. FINDINGS: There are a few small mucous retention cysts and/or polyps scattered throughout the bilater al maxillary sinuses. Patchy opacification lateral aspect left anterior ethmoid sinus axial image 43 Is noted. Remainder paranasal sinuses are clear without suspicious opacification or air-fluid levels. The ostiomeatal complex is patent bilaterally on the coronal images. Visualized portion of mastoid air cells show no abnormal opacification. The globes are intact bilate rally. IMPRESSION: Chronic maxillary sinus disease. Possible mild acute anterior ethmoid sinus disease.
== END ==
LOC: RADCTMAIN 16:51
PROVIDERS: ATTEND Otolaryngology
DX: J32.0 Chronic maxillary sinusitis (principal)
CPT/HCPCS: 70486

== ENCOUNTER → 2018-08-24 | Outpatient (CLI) | payer MEDICAID ==
[2018-08-25 11:25] LABS: Alt. alternata IgE Class CLASS 0; Alternaria alternata IgE <0.35 kU/L (<0.35); Asperg. fumagatus IgE <0.35 kU/L (<0.35); Asperg. fumagatus IgE Class CLASS 0; Aureo. pullulans IgE <0.35 kU/L (<0.35); Birch(Com.Silvr) IgE <0.35 kU/L (<0.35); Birch(Com.Silvr) IgE Class CLASS 0; Candida albicans IgE Class CLASS 0; Cat Epith & Dander IgE <0.35 kU/L (<0.35); Cat Epith & Dander IgE Class CLASS 0; Clad herbarum IgE <0.35 kU/L (<0.35); Cockroach IgE <0.35 kU/L (<0.35); Com. Pigweed IgE <0.35 kU/L (<0.35); Com. Pigweed IgE Class CLASS 0; Cottonwood IgE <0.35 kU/L (<0.35); Dermato. Pteronyssinus IgE <0.35 kU/L (<0.35); Dermato. farinae IgE <0.35 kU/L (<0.35); Dermato. farinae IgE Class CLASS 0; Dog Dander IgE <0.35 kU/L (<0.35); English Plantain IgE Class CLASS 0; Epicoccum purpurascens Class CLASS 0; Epicoccum purpurascens IgE <0.35 kU/L (<0.35); Johnson Grass IgE Class CLASS 0; Lamb's Quarter IgE <0.35 kU/L (<0.35); Lamb's Quarter IgE Class CLASS 0; Maple (Box Elder) IgE <0.35 kU/L (<0.35); Maple (Box Elder) IgE Class CLASS 0; Mucor racemosus IgE <0.35 kU/L (<0.35); Mucor racemosus IgE Class CLASS 0; Oak IgE <0.35 kU/L (<0.35); Rhizopus nigricans IgE <0.35 kU/L (<0.35); S.rostrata/Helminth Class CLASS 0; S.rostrata/Helminth IgE <0.35 kU/L (<0.35); Sycamore(Mpl.Lf) IgE <0.35 kU/L (<0.35); Timothy Grass IgE <0.35 kU/L (<0.35); Walnut Tree IgE <0.35 kU/L (<0.35); Walnut Tree IgE Class CLASS 0; White Ash IgE Class CLASS 0
== END | disposition home or self-care (01) ==
LOC: LABWHC1 08:43
PROVIDERS: ATTEND Nurse Practitioner Family
DX: J30.89 Other allergic rhinitis (principal)
CPT/HCPCS: 36415; 86003

== ENCOUNTER → 2019-02-01 | Outpatient (CLI) | payer MEDICAID ==
[2019-02-01 08:11] LABS: Basophils # (A) 0.1 k/uL (0-0.2); Basophils % (A) 1 %; Eosinophils # (A) 0.1 k/uL (0-0.7); Eosinophils % (A) 2 %; HCT 42.2 % (39.0-53.0); HGB 14.2 gm/dL (13.0-17.5); Lymphocytes # (A) 2.3 k/uL (1.0-4.8); Lymphocytes % (A) 46 %; MCH 31.7 pg (25.0-35.0); MCHC 33.7 g/dL (31.0-37.0); Mean Platelet Volume 6.1; Monocytes # (A) 0.3 k/uL (0-1.0); Monocytes % (A) 6 %; Neutrophils # (A) 2.2 k/uL (1.3-7.7); Neutrophils % (A) 42 %; Platelet Count 286 k/uL (150-450); RBC 4.49 m/uL (4.30-5.90); RDW 12.3 % (11.5-15.5); WBC 5.1 k/uL (3.8-10.6)
[2019-02-01 12:11] LABS: African American GFR (CKD) 88.4 (60.0-200.0); Albumin 4.2 g/dL (3.80-4.90); Anion Gap 6.2 mmol/L (4.00-12.00); BUN/Creat Ratio 12.73 Ratio (12.00-20.00); Carbon Dioxide 27.8 mmol/L (21.6-31.8); Chol/HDL Ratio 3.5; Globulin 2.1 g/dL (1.6-3.3); Potassium 4.4 mmol/L (3.5-5.5); Total Bilirubin 0.4 mg/dL (0.3-1.2); Total Protein 6.3 g/dL (6.2-8.2)
== END | disposition home or self-care (01) ==
LOC: LABWHC1 07:39
PROVIDERS: ATTEND Nurse Practitioner Adult Health
DX: I10 Essential (primary) hypertension (principal); E11.9 Type 2 diabetes mellitus without complications; E78.00 Pure hypercholesterolemia, unspecified; I42.0 Dilated cardiomyopathy; Z12.5 Encounter for screening for malignant neoplasm of prostate
CPT/HCPCS: 80061; 80053; 83735; 85025; 83036; 36415; G0103

== ENCOUNTER → 2019-03-03 | Outpatient (CLI) | payer MEDICAID ==
--- NOTE | 2019-03-03 08:23 | XR ---
Lumbar spine HISTORY: Low back pain 3 views of the lumbar spine Bone mineralization is reduced. There is multilevel spondylosis. Sclerosis in the posterior elements of the lower lumbar spine is consistent with facet arthropathy. Disc heights are relatively preserved . Superior endplate of T12 shows some possible mild anterior wedging. IMPRESSION: Osteopenia, degenerative disc disease and facet arthropathy.
== END | disposition home or self-care (01) ==
LOC: RADXRMAIN 08:02
PROVIDERS: ATTEND Physician Assistant
DX: M51.37 Other intervertebral disc degeneration, lumbosacral region (principal); M46.97 Unspecified inflammatory spondylopathy, lumbosacral region; M85.88 Other specified disorders of bone density and structure, other site
CPT/HCPCS: 72100

== ENCOUNTER → 2019-04-16 | Outpatient (CLI) | payer MEDICAID ==
[2019-04-16 13:15] LABS: HCT 45.7 % (39.0-53.0); HGB 15.2 gm/dL (13.0-17.5); MCH 31.9 pg (25.0-35.0); MCHC 33.3 g/dL (31.0-37.0); MCV 95.8 fL (80.0-100.0); Platelet Count 254 k/uL (150-450); RBC 4.77 m/uL (4.30-5.90); RDW 12.8 % (11.5-15.5); WBC 6.6 k/uL (3.8-10.6)
[2019-04-16 13:17] LABS: Appearance,Urine Clear (Clear); Bilirubin,Urine Negative (Negative); Blood,Urine Negative (Negative); Color,Urine Yellow; Glucose,Urine (UA) Negative (Negative); Ketones,Urine Negative (Negative); Leukocyte Esterase,Urine Negative (Negative); Nitrite,Urine Negative (Negative); Protein,Urine Negative (Negative); Specific Gravity,Urine 1.018 (1.001-1.035); Urobilinogen,Urine <2.0 mg/dL (<2.0)
[2019-04-16 19:06] LABS: African American GFR (CKD) 87.7 (60.0-200.0); Anion Gap 4.1 mmol/L (4.00-12.00); BUN/Creat Ratio 17.27 Ratio (12.00-20.00); Calcium 9.2 mg/dL (8.7-10.3); Carbon Dioxide 28.9 mmol/L (21.6-31.8); Chol/HDL Ratio 2.92; LDL Cholesterol,Calculated 94.4 mg/dL (0.0-131.0); Non-African American GFR(CKD) 75.7 (60.0-200.0); Potassium 4.5 mmol/L (3.5-5.5); VLDL Calculation 18.6 mg/dL (5.00-40.00)
[2019-04-16 20:24] LABS: Urine Creatinine 117.3 mg/dL
[2019-04-16 23:13] LABS: Hemoglobin A1C 7.2 % (4.0-6.0)
== END | disposition home or self-care (01) ==
LOC: LABWHC1 12:47
PROVIDERS: ATTEND Family Medicine
DX: I48.0 Paroxysmal atrial fibrillation (principal); E78.00 Pure hypercholesterolemia, unspecified; E11.9 Type 2 diabetes mellitus without complications; N40.0 Benign prostatic hyperplasia without lower urinary tract symptoms
CPT/HCPCS: 36415; 80048; 80061; 81003; 82043; 82570; 83036; 84153; 84450; 84460; 85027

== ENCOUNTER → 2019-05-04 | Day surgery (SDC) | payer MEDICAID ==
[2019-04-29 16:04] VITALS: BMI 44.0
[~2019-05-04] MED LIST changes: -ALPRAZolam 0.25 MG TAB PO PRN; -ASPIRIN 325 MG TAB PO ONE; +LACTATED RINGERS 1,000 ML IV SCH; +LIDOCAINE 1% (10MG/ML) FOR IV START INTRADERMA PRN; +LIDOCAINE 1% INJ 10MG/ML (20 ML MDV) ONE; -NITROGLYCERIN SL TABS 0.4 MG TAB SUBLINGUAL PRN; +PROPOFOL 10 MG/ML 20 ML VIAL IV ONE; -SODIUM CHLORIDE 0.9% 1,000 ML in EMPTY BAG 1 BAG IV ONE
[2019-05-04 10:43] VITALS: RESP 16; TEMP 96.8
[2019-05-04 10:50] LABS: Glucose,Whole Blood 126 mg/dL (75-99)
--- NOTE | 2019-05-04 11:16 | P.GSHP ---
History of Present Illness H&P Date: 05/04/19 Chief Complaint: GI bleed Is a 54-year-old male with complaints of GI bleed. Patient appears history of sigmoid colectomy for diverticulitis. Past Medical History Past Medical History: Atrial Fibrillation, Diabetes Mellitus, GI Bleed, Sleep Apnea/CPAP/BIPAP Additional Past Medical History / Comment(s): See Dr Sanchez's H&P. cardiomyopathy,HX OF COLON POLYPS, diverticular dx, minor positional sleep apne a, no CPAP/BIPAP. SMALL AMOUNT OF BLEEDING WITH BM POSSIBLE HEMORRHOID History of Any Multi-Drug Resistant Organisms: None Reported Past Surgical History: Appendectomy, Bowel Resection, Heart Catheterization, Tonsillectomy Additional Past Surgical History / Comment(s): Septo/rhinoplasty, colonoscopies, wisdom extractions, sigmoid colectomy 02/21/17, 12 inches colon removed. Past Anesthesia/Blood Transfusion Reactions: No Reported Reaction Additional Past Anesthesia/Blood Transfusion Reaction / Comment(s): CLAUSTROPHOBIA Smoking Status: Former smoker - Past Family History Mother Family Medical History: Diabetes Mellitus Additional Family Medical History / Comment(s): Mother had diverticular disease. She had a obstructed bowel and had emergency surgery. Father Additional Family Medical History / Comment(s): Father had to have 3 colostomies in his life. Sister(s) Family Medical History: Cancer Additional Family Medical History / Comment(s): breast Medications and Allergies Home Medications Medication Instructions Recorded Confirmed Type Zolpidem Tartrate 10 mg PO HS 11/13/16 05/04/19 History Aspirin [Adult Low Dose Aspirin EC] 81 mg PO DAILY 04/24/17 05/04/19 History Atorvastatin [Lipitor] 20 mg PO HS 06/03/17 05/04/19 History Rivaroxaban [Xarelto] 20 mg PO HS 06/03/17 05/04/19 History Sotalol [Betapace] 80 mg PO BID 06/03/17 05/04/19 History Magnesium Oxide [Mag-Ox] 400 mg PO DAILY 04/29/19 05/04/19 History Metoprolol Succinate (ER) [Toprol 12.5 mg PO DAILY 04/29/19 05/04/19 History Xl] Montelukast [Singulair] 10 mg PO DAILY 04/29/19 05/04/19 History Spironolactone [Aldactone] 25 mg PO Q2D 04/29/19 05/04/19 History metFORMIN HCL [Glucophage] 500 mg PO BID 04/29/19 05/04/19 History Allergies Allergy/AdvReac Type Severity Reaction Status Date / Time No Known Allergies Allergy Verified 04/29/19 15:46 Surgical - Exam Vital Signs Temp Pulse Resp BP Pulse Ox 96.8 F L 72 16 136/78 92 L 05/04/19 10:38 05/04/19 10:38 05/04/19 10:38 05/04/19 10:38 05/04/19 10:38 - General well developed, well nourished, no distress - Eyes PERRL - ENT normal pinna - Neck no masses - Respiratory normal expansion - Cardiovascular Rhythm: regular - Abdomen Abdomen: soft, non tender Results - Labs Abnormal Lab Results - Last 24 Hours (Table) 05/04/19 Range/Units 10:47 POC Glucose (mg/dL) 126 H (75-99) mg/dL Assessment and Plan Assessment: GI bleed. We'll perform colonoscopy.
--- NOTE | 2019-05-04 11:31 | P.OP ---
Date of Procedure: 05/04/19 Preoperative Diagnosis: GI bleed Postoperative Diagnosis: Diverticulosis Procedure(s) Performed: Colonoscopy Pathology: none sent Condition: stable Disposition: PACU Description of Procedure: Patient's placed on the endoscopy table in the lateral position. He received IV sedation. Digital rectal exam was performed which revealed no abnormalities. The prostate was symmetric without nodules. The flexible colonoscope was then placed patient anus and passed throughout the entire colon. The ileocecal valve was visualized. The cecum, ascending and transverse colon appeared normal. In the descending colon there was diverticular changes seen. Scope was then brought back the rectum and this appeared normal. The patient a previous colon rectal anastomosis this is without evidence of inflammation. Scope was withdrawn through the anus. Patient top she will well.
[2019-05-04 11:54] VITALS: BP 106/68; PULSE 55
== END | disposition home or self-care (01) ==
LOC: ORWHC2ENDO 10:23
PROVIDERS: ATTEND Surgery
DX: K57.31 Diverticulosis of large intestine without perforation or abscess with bleeding (principal); I48.91 Unspecified atrial fibrillation; I42.9 Cardiomyopathy, unspecified; E11.9 Type 2 diabetes mellitus without complications; G47.33 Obstructive sleep apnea (adult) (pediatric); F40.240 Claustrophobia; Z87.891 Personal history of nicotine dependence; Z79.82 Long term (current) use of aspirin; Z79.01 Long term (current) use of anticoagulants; Z79.84 Long term (current) use of oral hypoglycemic drugs; Z79.899 Other long term (current) drug therapy; Z90.49 Acquired absence of other specified parts of digestive tract; Z86.010 Personal history of colon polyps; Z90.89 Acquired absence of other organs; Z98.818 Other dental procedure status; Z80.3 Family history of malignant neoplasm of breast; Z83.79 Family history of other diseases of the digestive system; Z83.3 Family history of diabetes mellitus
CPT/HCPCS: 45378; J2001; J2704

== ENCOUNTER 2019-07-02 08:22 | Inpatient (IN) | payer MEDICAID ==
[2019-07-02] MEDS ORDERED: SODIUM CHLORIDE 0.9% 500 ML 500 ML IV STA (08:48)
[2019-07-02] MEDS ORDERED: ACETAMINOPHEN TAB 325 MG TAB PO STA (08:49)
--- NOTE | 2019-07-02 08:54 | ED ---
URI HPI - General Chief Complaint: Upper Respiratory Infection Stated Complaint: Fever, Cough, SOB Time Seen by Provider: 07/02/19 08:34 Source: patient Mode of arrival: ambulatory Limitations: no limitations - History of Present Illness Initial Comments: 54-year-old male history of atrial fibrillation, sleep apnea, cardiomyopathy, HLD presenting to the emergency department today for chief complaint of fever, body aches, dyspnea and cough x 7 days. Patient states the past 7 days he has had this sensation as though he's had a fever sweats body aches he states that he has had progressive dyspnea especially with exertion. Patient states he has had a cough and congestion as well that has been persistent throughout the 7 days. 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 Patient states he initially presented to an urgent care on Friday06/27/2019, where he was clinicalyl diagnosed with influenza and sent home with Nan Bah. Patient states his symptoms have worsened especially the shortness of breath. He also states that he has had diarrhea for the past 5 days as well, denies abdominal pain, vomiting, chest pain/pressure, jaw pain or arm pain. Denies history of CAD. Patient has no other complaints at this time. Patient respirations 22 on arrival after sitting down after walking. - Related Data Home Medications Medication Instructions Recorded Confirmed Zolpidem Tartrate 10 mg PO HS 11/13/16 07/02/19 Aspirin [Adult Low Dose Aspirin EC] 81 mg PO DAILY 04/24/17 07/02/19 Atorvastatin [Lipitor] 20 mg PO HS 06/03/17 07/02/19 Rivaroxaban [Xarelto] 20 mg PO HS 06/03/17 07/02/19 Sotalol [Betapace] 80 mg PO BID 06/03/17 07/02/19 Magnesium Oxide [Mag-Ox] 400 mg PO DAILY 04/29/19 07/02/19 Metoprolol Succinate (ER) [Toprol 12.5 mg PO DAILY 04/29/19 07/02/19 Xl] Montelukast [Singulair] 10 mg PO HS 04/29/19 07/02/19 Spironolactone [Aldactone] 12.5 mg PO DAILY 04/29/19 07/02/19 metFORMIN HCL [Glucophage] 500 mg PO BID 04/29/19 07/02/19 Benzonatate [Tessalon Perles] 100 mg PO TID PRN 07/02/19 07/02/19 Docusate [Colace] 100 mg PO DAILY 07/02/19 07/02/19 Guaifen/Phenyleph/Acetaminophn 30 ml PO Q12H PRN 07/02/19 07/02/19 [Mucinex Sinus-Max Severe Liq] Previous Rx's Medication Instructions Recorded Azithromycin [Zithromax Z-pack] 0 mg PO DAILY 4 Days #4 tab 07/02/19 Allergies Allergy/AdvReac Type Severity Reaction Status Date / Time No Known Allergies Allergy Verified 07/02/19 09:03 Review of Systems ROS Statement: Those systems with pertinent positive or pertinent negative responses have been documented in the HPI. ROS Other: All systems not noted in ROS Statement are negative. Past Medical History Past Medical History: Atrial Fibrillation, Diabetes Mellitus, GI Bleed, Sleep Apnea/CPAP/BIPAP Additional Past Medical History / Comment(s): See Dr Sanchez's H&P. cardiomyopathy,HX OF COLON POLYPS, diverticular dx, minor positional sleep apnea, no CPAP/BIPAP. SMALL AMOUNT OF BLEEDING WITH BM POSSIBLE HEMORRHOID History of Any Multi-Drug Resistant Organisms: None Reported Past Surgical History: Appendectomy, Bowel Resection, Heart Catheterization, Tonsillectomy Additional Past Surgical History / Comment(s): Septo/rhinoplasty, colonoscopies, wisdom extractions, sigmoid colectomy 02/21/17, 12 inches colon removed. Past Anesthesia/Blood Transfusion Reactions: No Reported Reaction Additional Past Anesthesia/Blood Transfusion Reaction / Comment(s): CLAUSTROPHOBIA Past Psychological History: No Psychological Hx Reported Smoking Status: Former smoker Past Alcohol Use History: Rare Past Drug Use History: None Reported - Past Family History Mother Family Medical History: Diabetes Mellitus Additional Family Medical History / Comment(s): Mother had diverticular disease. She had a obstructed bowel and had emergency surgery. Father Additional Family Medical History / Comment(s): Father had to have 3 colostomies in his life. Sister(s) Family Medical History: Cancer Additional Family Medical History / Comment(s): breast General Exam - General Exam Comments Initial Comments: General: The patient is awake and alert Eye: +3 mm pupils are equal, round and reactive to light, extra-ocular movements are intact. No nystagmus. There is normal conjunctiva bilaterally. No signs of icterus. No photophobia Ears, nose, mouth and throat: There are moist mucous membranes and no oral lesions. Oropharynx was not erythematous there is no tonsillar enlargement exudates or lesions. Uvula midline. No anterior cervical lymphadenopathy. Rhinorrhea, clear and bilateral nares. No tripoding, no drooling. Neck: The neck is supple, there is no tenderness or JVD. No nuchal rigidity Cardiovascular: There is a regular rate and rhythm. No murmur, rub or gallop is appreciated. Respiratory: Lungs are clear to auscultation, respirations are mildly-labored, breath sounds are equal. No obvious wheezes, stridor, rales, or rhonchi. No retractions. Gastrointestinal: Soft, non-distended, non-tender abdomen without masses or organomegaly noted. There is no rebound or guarding present. Bowel sounds are unremarkable. Musculoskeletal: Normal ROM, no tenderness. Strength 5/5. Sensation intact. Radial pulses equal bilaterally 2+. Neurological: A&O x 3. CN II-XII intact grossly, There are no obvious motor or sensory deficits. Coordination appears grossly intact. Speech appears normal, no muffling. Skin: Skin is warm and dry and no rashes or lesions are noted. No extremity edema Psychiatric: Cooperative On reevaluation: Patient resting comfortably, RR 18. 97% on RA. Limitations: no limitations Course Vital Signs 07/02/19 07/02/19 07/02/19 08:25 09:00 10:05 Temperature 99.8 F H Pulse Rate 87 75 Respiratory 18 16 16 Rate Blood Pressure 107/75 152/98 O2 Sat by Pulse 99 95 Oximetry Medical Decision Making - Medical Decision Making 54yo with co-morbidities, obesity presents emergency department today for chief complaint of cough fever shortness of breath possible exposure to covid + employee. Patient has had symptoms x 1 week. CXR concerning for covid given the multifocal pneumonia. Patient is not hypoxic. Does not appears septic. I did feel patient was tachypneic with ambulation. I discussed admission with attending Dr. Allen, consulted Shamar admitted provider who thought discharge might be appropriate at this time but he wanted to come to ER for evalution first. Evaluated by DR. Ibanez in ER he recommended admission with rocephin and azithromycin, as well as albuterol inhaler with spacer and obtaining a procalcitonin. Patient agreeable to admission. - Lab Data Result diagrams: 07/02/19 09:06 07/02/19 09:06 Lab Results 07/02/19 07/02/19 07/02/19 Range/Units 09:06 09:06 09:06 WBC 4.1 (3.8-10.6) k/uL RBC 4.65 (4.30-5.90) m/uL Hgb 15.2 (13.0-17.5) gm/dL Hct 43.6 (39.0-53.0) % MCV 93.8 (80.0-100.0) fL MCH 32.8 (25.0-35.0) pg MCHC 34.9 (31.0-37.0) g/dL RDW 12.2 (11.5-15.5) % Plt Count 200 (150-450) k/uL Neutrophils % 56 % Lymphocytes % 30 % Monocytes % 10 % Eosinophils % 1 % Basophils % 0 % Neutrophils # 2.3 (1.3-7.7) k/uL Lymphocytes # 1.2 (1.0-4.8) k/uL Monocytes # 0.4 (0-1.0) k/uL Eosinophils # 0.0 (0-0.7) k/uL Basophils # 0.0 (0-0.2) k/uL Sodium 135 L (137-145) mmol/L Potassium 4.3 (3.5-5.1) mmol/L Chloride 100 (98-107) mmol/L Carbon Dioxide 26 (22-30) mmol/L Anion Gap 9 mmol/L BUN 12 (9-20) mg/dL Creatinine 1.06 (0.66-1.25) mg/dL Est GFR (CKD-EPI)AfAm >90 (>60 ml/min/1.73 sqM) Est GFR (CKD-EPI)NonAf 80 (>60 ml/min/1.73 sqM) Glucose 154 H (74-99) mg/dL Plasma Lactic Acid Julián 1.2 (0.7-2.0) mmol/L Calcium 8.6 (8.4-10.2) mg/dL Total Bilirubin 0.5 (0.2-1.3) mg/dL AST 28 (17-59) U/L ALT 26 (4-49) U/L Alkaline Phosphatase 70 (38-126) U/L Troponin I (0.000-0.034) ng/mL NT-Pro-B Natriuret Pep pg/mL Total Protein 7.1 (6.3-8.2) g/dL Albumin 4.3 (3.5-5.0) g/dL Influenza Type A RNA (Not Detectd) Influenza Type B (PCR) (Not Detectd) 07/02/19 07/02/19 07/02/19 Range/Units 09:06 09:06 09:30 WBC (3.8-10.6) k/uL RBC (4.30-5.90) m/uL Hgb (13.0-17.5) gm/dL Hct (39.0-53.0) % MCV (80.0-100.0) fL MCH (25.0-35.0) pg MCHC (31.0-37.0) g/dL RDW (11.5-15.5) % Plt Count (150-450) k/uL Neutrophils % % Lymphocytes % % Monocytes % % Eosinophils % % Basophils % % Neutrophils # (1.3-7.7) k/uL Lymphocytes # (1.0-4.8) k/uL Monocytes # (0-1.0) k/uL Eosinophils # (0-0.7) k/uL Basophils # (0-0.2) k/uL Sodium (137-145) mmol/L Potassium (3.5-5.1) mmol/L Chloride (98-107) mmol/L Carbon Dioxide (22-30) mmol/L Anion Gap mmol/L BUN (9-20) mg/dL Creatinine (0.66-1.25) mg/dL Est GFR (CKD-EPI)AfAm (>60 ml/min/1.73 sqM) Est GFR (CKD-EPI)NonAf (>60 ml/min/1.73 sqM) Glucose (74-99) mg/dL Plasma Lactic Acid Julián (0.7-2.0) mmol/L Calcium (8.4-10.2) mg/dL Total Bilirubin (0.2-1.3) mg/dL AST (17-59) U/L ALT (4-49) U/L Alkaline Phosphatase (38-126) U/L Troponin I <0.012 (0.000-0.034) ng/mL NT-Pro-B Natriuret Pep 56 pg/mL Total Protein (6.3-8.2) g/dL Albumin (3.5-5.0) g/dL Influenza Type A RNA Not Detected (Not Detectd) Influenza Type B (PCR) Not Detected (Not Detectd) - EKG Data EKG Comments: Ventricular rate 77 bpm, MO interval 142 ms, QR jewish 92 ms, QT/QTC 378/427 ms. This is normal sinus there is no ST elevation or depression normal R-wave progression. No acute findings. Disposition Clinical Impression: Pneumonia, Shortness of breath, Cough, Hx of fever Disposition: ADMITTED IP TO THIS HOSP Condition: Good Additional Instructions: Please use medication as discussed. Please follow-up with family doctor, Diana on Friday he stated to go into the office first thing in the morning and they will fit you in, please wear mask as discussed and self quarantine for the next 14 days, if at day 14 continue to be febrile, must continue to quarantine- and discuss with primary care provider for further recommendations for self isolation. Please return to emergency room if the symptoms increase or worsen or for any other concerns. Prescriptions: Azithromycin [Zithromax Z-pack] 0 mg PO DAILY 4 Days #4 tab Is patient prescribed a controlled substance at d/c from ED?: No Referrals: Bunny Ortiz DO [Primary Care Provider] - 1-2 days Time of Disposition: 09:53 Decision to Admit Reason: Admit from EC Decision Date: 07/02/19 Decision Time: 12:25
--- NOTE | 2019-07-02 09:10 | XR ---
EXAMINATION TYPE: XR chest 2V DATE OF EXAM: 07/02/2019 COMPARISON: 06/20/2017 and 07/20/2018 HISTORY: 54-year-old male cough, fever, congestion TECHNIQUE: PA and lateral views FINDINGS: Heart normal size. Rightward patient rotation ultrasound normal cardiac mediastinal contours. Aorta a nd pulmonary vasculature within normal limits. New focal densities right upper to mid lung and left m id to lower lung as well as the medial left base. No pleural effusion. IMPRESSION: New small bilateral infiltrates. Correlate for multifocal or atypical pneumonias. Follow-up after freda atment to ensure clearance.
[2019-07-02] MEDS ORDERED: predniSONE 20 MG TAB PO STA (09:30)
[2019-07-02] MEDS ORDERED: SODIUM CHLORIDE 0.9% 1,000 ML IV SCH (09:30)
[2019-07-02] MEDS ORDERED: NALOXONE 0.4 MG/ML 1 ML VIAL IV PRN ×2 (09:30→12:21)
[2019-07-02] MEDS ORDERED: AZITHROMYCIN 500 MG in SODIUM CHLORIDE 0.9% 250 ML IVPB STA ×2 (09:30→12:24)
[2019-07-02 09:37] LABS: Basophils % (A) 0 %; Eosinophils % (A) 1 %; HCT 43.6 % (39.0-53.0); HGB 15.2 gm/dL (13.0-17.5); Lymphocytes # (A) 1.2 k/uL (1.0-4.8); Lymphocytes % (A) 30 %; MCH 32.8 pg (25.0-35.0); MCHC 34.9 g/dL (31.0-37.0); MCV 93.8 fL (80.0-100.0); Mean Platelet Volume 7.2; Monocytes # (A) 0.4 k/uL (0-1.0); Monocytes % (A) 10 %; Neutrophils # (A) 2.3 k/uL (1.3-7.7); Neutrophils % (A) 56 %; Platelet Count 200 k/uL (150-450); RBC 4.65 m/uL (4.30-5.90); RDW 12.2 % (11.5-15.5); WBC 4.1 k/uL (3.8-10.6)
[2019-07-02 09:46] LABS: ALT 26 U/L (4-49); AST 28 U/L (17-59); African American GFR (CKD) >90 (>60 ml/min/1.73 sqM); Albumin 4.3 g/dL (3.5-5.0); Alkaline Phosphatase 70 U/L (38-126); Anion Gap 9 mmol/L; Blood Urea Nitrogen 12 mg/dL (9-20); Calcium 8.6 mg/dL (8.4-10.2); Carbon Dioxide 26 mmol/L (22-30); Chloride 100 mmol/L (98-107); Glucose 154 mg/dL (74-99); Non-African American GFR(CKD) 80 (>60 ml/min/1.73 sqM); Potassium 4.3 mmol/L (3.5-5.1); Sodium 135 mmol/L (137-145); Total Bilirubin 0.5 mg/dL (0.2-1.3); Total Protein 7.1 g/dL (6.3-8.2)
[2019-07-02 12:35] LABS: Appearance,Urine Clear (Clear); Bilirubin,Urine Negative (Negative); Blood,Urine Negative (Negative); Color,Urine Yellow; Glucose,Urine (UA) Negative (Negative); Ketones,Urine Trace (Negative); Leukocyte Esterase,Urine Negative (Negative); Nitrite,Urine Negative (Negative); PH, Urine 5.5 (5.0-8.0); Protein,Urine Negative (Negative); Specific Gravity,Urine 1.008 (1.001-1.035); Urobilinogen,Urine <2.0 mg/dL (<2.0)
[2019-07-02] MEDS: SODIUM CHLORIDE 0.9% 1,000 ML IV SCH (12:46)
[2019-07-02] MEDS ORDERED: ALBUTEROL INHALER 60 PUFF/8 GM INHALER (BULK) INHALATION SCH ×2 (13:00→14:07)
[2019-07-02 16:39] LABS: Glucose,Whole Blood 175 mg/dL (75-99)
--- NOTE | 2019-07-02 18:12 | P.HPIM ---
History of Present Illness H&P Date: 07/02/19 Chief Complaint: Cough, shortness of breath History of presenting complaint: This is a pleasant 55-year-old patient of Dr. Ortiz. Chronic stable medical conditions include persistent atrial fibrillation on anticoagulation, nonischemic cardiomyopathy EF of 34-40%, chronic insomnia, prediabetes, patient about a week ago started of with the cough not feeling well. Did continue [facility] He was treated for respiratory infection sent home. Patient has been noticing that he become short of breath chest tightness with activity. Having some nausea. Also is having some intermittent diarrhea. Because symptoms are not been getting worked better some progression and decided to come in. Did not remember any obvious fever or chills. No real sputum pro duction. Checks x-ray shows some scant infiltrate. COVID 19 sent from the ER. 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 Denies use of recreational drugs. Patient smoked up to a pack and half a day for close to 30 years stopped in 1999 Physical examination: VITAL SIGNS: 98.6, 65, 18, 110/75, 94% on room air GENERAL: BMI 43.4, laying in bed awake not in distress. EYES: Pupils equal. Conjunctiva normal. HEENT: External appearance of nose and ears normal, oral cavity grossly normal. NECK: JVD not raised; masses not palpable. HEART: First and second heart sounds are normal; no edema. LUNGS: Respiratory rate normal; slightly decreased breath sounds. ABDOMEN: Soft, nontender, liver spleen not palpable, no masses palpable. PSYCH: Alert and oriented x3; mood and affect normal. NEUROLOGICAL: Cranial nerves grossly intact; no facial asymmetry, power and sensation grossly intact. LYMPHATICS: No lymph nodes palpable in the axilla and neck INVESTIGATIONS, reviewed in the clinical context: White count 4.1 hemoglobin 15.2 platelets 200 potassium 4.3 creatinine 1.06 Troponin I less than 0.012 proBNP 56 Influenza type A and type B both negative [id number] EKG tracing personally reviewed by me-normal sinus rhythm Chest x-ray film personally reviewed by me-shows a small infiltrate on the right upper zone and on the left basal Assessment: -This patient presents with one-week history of respiratory symptoms. Including shortness of breath and chest tightness. Nausea. Has had no obvious fever or chills. No headaches. Has fleeting infiltrate on chest x-ray. Patient has fair pulse ox on room air. No lymphopenia. Likely viral pneumonitis, cannot rule out atypical pneumonia -COVID-19 pending -Paroxysmal atrial fibrillation currently in sinus rhythm on anticoagulation -Nonischemic cardiomyopathy EF 35-40%, stable -Chronic insomnia, idiopathic -Prediabetes -Morbid obesity BMI 43.4 Plan: Care was discussed with the patient. We washed the patient at least overnight. We will use MDI 4 puffs 4 times a day. Patient will be empirically given ceftriaxone and Zithromax. Repeat labs in the morning. Care was discussed with the patient question were answered. We will also start patient on Spiriva 1 puff daily. Lovenox for DVT prophylaxis. Resume home medications. Past Medical History Past Medical History: Atrial Fibrillation, Coronary Artery Disease (CAD), Diabetes Mellitus, GI Bleed, Sleep Apnea/CPAP/BIPAP Additional Past Medical History / Comment(s): NIDDM type II, lower GI bleed, diverticular disease, benign colon polyps History of Any Multi-Drug Resistant Organisms: None Reported Past Surgical History: Appendectomy, Bowel Resection, Cardiac Ablation, Heart Catheterization, Tonsillectomy Additional Past Surgical History / Comment(s): 2017 colon resection, colonoscopies/benign polypectomy, cryoablation pulmonary veins, septorhinoplasty, wisdom teeth extractions. Past Anesthesia/Blood Transfusion Reactions: No Reported Reaction Additional Past Anesthesia/Blood Transfusion Reaction / Comment(s): CLAUSTROPHOBIA Past Psychological History: No Psychological Hx Reported Additional Psychological History / Comment(s): Pt resides with his spouse. He is independent. He is retired from the [employer]. 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 Smoking Status: Former smoker Past Alcohol Use History: Rare Additional Past Alcohol Use History / Comment(s): Pt started smoking in 1983 and quit in 1999. He was a 1 AND 1/2 ppd smoker. Past Drug Use History: None Reported - Past Family History Mother Family Medical History: Diabetes Mellitus Additional Family Medical History / Comment(s): Mother had diverticular disease. She had a obstructed bowel and had emergency surgery. Father Additional Family Medical History / Comment(s): Father had to have 3 colostomies in his life. Sister(s) Family Medical History: Cancer Additional Family Medical History / Comment(s): breast Medications and Allergies Home Medications Medication Instructions Recorded Confirmed Type Zolpidem Tartrate 10 mg PO HS 11/13/16 07/02/19 History Aspirin [Adult Low Dose Aspirin EC] 81 mg PO DAILY 04/24/17 07/02/19 History Atorvastatin [Lipitor] 20 mg PO HS 06/03/17 07/02/19 History Rivaroxaban [Xarelto] 20 mg PO HS 06/03/17 07/02/19 History Sotalol [Betapace] 80 mg PO BID 06/03/17 07/02/19 History Magnesium Oxide [Mag-Ox] 400 mg PO DAILY 04/29/19 07/02/19 History Metoprolol Succinate (ER) [Toprol 12.5 mg PO DAILY 04/29/19 07/02/19 History Xl] Montelukast [Singulair] 10 mg PO HS 04/29/19 07/02/19 History Spironolactone [Aldactone] 12.5 mg PO DAILY 04/29/19 07/02/19 History metFORMIN HCL [Glucophage] 500 mg PO BID 04/29/19 07/02/19 History Azithromycin [Zithromax Z-pack] 0 mg PO DAILY 4 Days #4 tab 07/02/19 Rx Benzonatate [Tessalon Perles] 100 mg PO TID PRN 07/02/19 07/02/19 History Docusate [Colace] 100 mg PO DAILY 07/02/19 07/02/19 History Guaifen/Phenyleph/Acetaminophn 30 ml PO Q12H PRN 07/02/19 07/02/19 History [Mucinex Sinus-Max Severe Liq] Allergies Allergy/AdvReac Type Severity Reaction Status Date / Time No Known Allergies Allergy Verified 07/02/19 09:03 Physical Exam Vitals: Vital Signs Temp Pulse Pulse Resp BP BP Pulse Ox 07/02/19 14:49 98.6 F 65 18 110/75 94 L 03/27/20 14:08 76 18 126/77 95 07/02/19 12:49 97.9 F 66 16 131/79 96 07/02/19 10:05 75 16 152/98 95 07/02/19 09:00 16 07/02/19 08:25 99.8 F H 87 18 107/75 99 Intake and Output 07/02/19 07/02/19 07/02/19 06:59 14:59 22:59 Other: Weight 145.15 kg Results CBC & Chem 7: 07/02/19 09:06 07/02/19 09:06 Labs: Abnormal Lab Results - Last 24 Hours (Table) 07/02/19 07/02/19 07/02/19 Range/Units 09:06 10:55 16:37 Sodium 135 L (137-145) mmol/L Glucose 154 H (74-99) mg/dL POC Glucose (mg/dL) 175 H (75-99) mg/dL Urine Ketones Trace H (Negative) Thrombosis Risk Factor Assmnt - Choose All That Apply Any of the Below Risk Factors Present?: Yes Each Factor Represents 1 point: Age 41-60 years, Obesity (BMI >25), Serious lung disease incl. pneumonia (< 1month) Other Risk Factors: No Other congenital or acquired thrombophilia - If yes, enter type in comment: No Thrombosis Risk Factor Assessment Total Risk Factor Score: 3 Thrombosis Risk Factor Assessment Level: Moderate Risk
[2019-07-02] MEDS: ALBUTEROL INHALER 60 PUFF/8 GM INHALER (BULK) INHALATION SCH (19:54)
[2019-07-02] MEDS: TIOTROPIUM 18 MCG/PUFF INHALER INHALATION SCH (19:58)
[2019-07-02 20:07] LABS: Glucose,Whole Blood 202 mg/dL (75-99)
[2019-07-02] MEDS: metFORMIN 500 MG TAB PO SCH (20:37)
[2019-07-02] MEDS: SOTALOL 80 MG TAB PO SCH (20:37)
[2019-07-02] MEDS: MAGNESIUM OXIDE 400 MG TAB PO SCH (20:41)
[2019-07-02] MEDS ORDERED: ZOLPIDEM 10 MG TAB PO SCH (21:00)
[2019-07-02] MEDS ORDERED: RIVAROXABAN 20 MG TAB PO SCH (21:00)
[2019-07-02] MEDS ORDERED: ATORVASTATIN 20 MG TAB PO SCH (21:00)
[2019-07-02] MEDS ORDERED: MONTELUKAST 10 MG TAB PO SCH (21:00)
[2019-07-03 06:47] LABS: Glucose,Whole Blood 112 mg/dL (75-99)
[2019-07-03] MEDS: SODIUM CHLORIDE 0.9% 1,000 ML IV SCH (07:23)
[2019-07-03] MEDS: MAGNESIUM OXIDE 400 MG TAB PO SCH (07:45)
[2019-07-03] MEDS: SOTALOL 80 MG TAB PO SCH (07:46)
[2019-07-03] MEDS: metFORMIN 500 MG TAB PO SCH (07:46)
[2019-07-03 08:14] LABS: African American GFR (CKD) >90 (>60 ml/min/1.73 sqM); Anion Gap 8 mmol/L; Blood Urea Nitrogen 13 mg/dL (9-20); Calcium 8.2 mg/dL (8.4-10.2); Carbon Dioxide 27 mmol/L (22-30); Chloride 104 mmol/L (98-107); Glucose 136 mg/dL (74-99); Non-African American GFR(CKD) >90 (>60 ml/min/1.73 sqM); Potassium 4.8 mmol/L (3.5-5.1); Sodium 139 mmol/L (137-145)
[2019-07-03] MEDS: ALBUTEROL INHALER 60 PUFF/8 GM INHALER (BULK) INHALATION SCH ×3 (08:27→15:17)
[2019-07-03] MEDS: TIOTROPIUM 18 MCG/PUFF INHALER INHALATION SCH (08:29)
[2019-07-03] MEDS ORDERED: METOPROLOL SUCCINATE (ER) 25 MG TAB.ER.24H PO SCH (09:00)
[2019-07-03] MEDS ORDERED: predniSONE 20 MG TAB PO SCH (09:00)
[2019-07-03] MEDS ORDERED: ASPIRIN 81 MG PO SCH (09:00)
[2019-07-03] MEDS ORDERED: SPIRONOLACTONE 25 MG TAB PO SCH (09:00)
[2019-07-03 11:28] LABS: Glucose,Whole Blood 183 mg/dL (75-99)
[2019-07-03] MEDS ORDERED: AZITHROMYCIN 500 MG TAB PO SCH (14:00)
[2019-07-03 15:53] VITALS: BP 137/88; PULSE 68; RESP 18; TEMP 99.1
--- NOTE | 2019-07-03 19:30 | P.DS ---
Providers Date of admission: 07/02/19 13:24 Expected date of discharge: 07/03/19 Attending physician: Gilberto Ibanez Primary care physician: Bunny Ortiz [facility] Course: Chief Complaint: Cough, shortness of breath History of presenting complaint: This is a pleasant 55-year-old patient of Dr. Ortiz. Chronic stable medical conditions include persistent atrial fibrillation on anticoagulation, nonischemic cardiomyopathy EF of 34-40%, chronic insomnia, prediabetes, patient about a week ago started of with the cough not feeling well. Did continue to go down to [facility]. He was treated for respiratory infection sent home. Patient has been noticing that he become short of breath chest tightness with activity. Having some nausea. Also is having some intermittent diarrhea. Because symptoms are not been getting worked better some progression and decided to come in. Did not remember any obvious fever or chills. No real sputum production. Checks x-ray shows some scant infiltrate. COVID 19 sent from the ER. Admitted with bilateral pneumonitis, bronchospasm. Started on Spiriva and albuterol inhaler. Steroids. Today-patient doing reasonably fine. Did have a lengthy discussion with the patient. Pulse ox is good. Patient's up and about to the bathroom. Tolerating his diet. COVID-19 is also pending. Patient will go home keep himself in isolation. Results will be obtained from the health department. Several questions were answered. Including about social distancing. Discussion and discharge planning more than 35 minutes Physical examination: VITAL SIGNS: 99.1, 68, 18, 137/88, 95% on room air GENERAL: BMI 43.4, laying in bed awake not in distress. EYES: Pupils equal. Conjunctiva normal. HEENT: External appearance of nose and ears normal, oral cavity grossly normal. NECK: JVD not raised; masses not palpable. HEART: First and second heart sounds are normal; no edema. LUNGS: Respiratory rate normal; slightly decreased breath sounds. ABDOMEN: Soft, nontender, liver spleen not palpable, no masses palpable. PSYCH: Alert and oriented x3; mood and affect normal. INVESTIGATIONS, reviewed in the clinical context: Potassium 4.8 creatinine 0.9 to Previous testing White count 4.1 hemoglobin 15.2 platelets 200 potassium 4.3 creatinine 1.06 Troponin I less than 0.012 proBNP 56 Influenza type A and type B both negative [id number] EKG tracing personally reviewed by me-normal sinus rhythm Chest x-ray film personally reviewed by me-shows a small infiltrate on the right upper zone and on the left basal Assessment: - Likely viral pneumonitis, cannot rule out atypical pneumonia -COVID-19 pending -Paroxysmal atrial fibrillation currently in sinus rhythm on anticoagulation -Nonischemic cardiomyopathy EF 35-40%, stable -Chronic insomnia, idiopathic -Prediabetes -Morbid obesity BMI 43.4 Disposition: Home with quarantined Patient Condition at Discharge: Stable Plan - Discharge Summary Discharge Rx Participant: No New Discharge Prescriptions: New Azithromycin [Zithromax Z-pack] 0 mg PO DAILY 4 Days #4 tab predniSONE 0 mg PO DIRECTED #10 tab Tiotropium 18 Mcg/Puff [Spiriva] 1 puff INHALATION RT-DAILY inhaler Albuterol Inhaler [Ventolin Hfa Inhaler] 2 puff INHALATION RT-QID puff Continue Zolpidem Tartrate 10 mg PO HS Aspirin [Adult Low Dose Aspirin EC] 81 mg PO DAILY Sotalol [Betapace] 80 mg PO BID Rivaroxaban [Xarelto] 20 mg PO HS Atorvastatin [Lipitor] 20 mg PO HS metFORMIN HCL [Glucophage] 500 mg PO BID Spironolactone [Aldactone] 12.5 mg PO DAILY Montelukast [Singulair] 10 mg PO HS Metoprolol Succinate (ER) [Toprol XL] 12.5 mg PO DAILY Magnesium Oxide [Mag-Ox] 400 mg PO DAILY Docusate [Colace] 100 mg PO DAILY Benzonatate [Tessalon Perles] 100 mg PO TID PRN PRN Reason: Cough Guaifen/Phenyleph/Acetaminophn [Mucinex Sinus-Max Severe Liq] 30 ml PO Q12H PRN PRN Reason: Congestion Discharge Medication List Zolpidem Tartrate 10 mg PO HS 11/13/16 [History] Aspirin [Adult Low Dose Aspirin EC] 81 mg PO DAILY 04/24/17 [History] Atorvastatin [Lipitor] 20 mg PO HS 06/03/17 [History] Rivaroxaban [Xarelto] 20 mg PO HS 06/03/17 [History] Sotalol [Betapace] 80 mg PO BID 06/03/17 [History] Magnesium Oxide [Mag-Ox] 400 mg PO DAILY 04/29/19 [History] Metoprolol Succinate (ER) [Toprol XL] 12.5 mg PO DAILY 04/29/19 [History] Montelukast [Singulair] 10 mg PO HS 04/29/19 [History] Spironolactone [Aldactone] 12.5 mg PO DAILY 04/29/19 [History] metFORMIN HCL [Glucophage] 500 mg PO BID 04/29/19 [History] Azithromycin [Zithromax Z-pack] 0 mg PO DAILY 4 Days #4 tab 07/02/19 [Rx] Benzonatate [Tessalon Perles] 100 mg PO TID PRN 07/02/19 [History] Docusate [Colace] 100 mg PO DAILY 07/02/19 [History] Guaifen/Phenyleph/Acetaminophn [Mucinex Sinus-Max Severe Liq] 30 ml PO Q12H PRN 07/02/19 [History] Albuterol Inhaler [Ventolin Hfa Inhaler] 2 puff INHALATION RT-QID puff 07/03/19 [Rx] Tiotropium 18 Mcg/Puff [Spiriva] 1 puff INHALATION RT-DAILY inhaler 07/03/19 [Rx] predniSONE 0 mg PO DIRECTED #10 tab 07/03/19 [Rx] Follow up Appointment(s)/Referral(s): Bunny Ortiz DO [Primary Care Provider] - 1-2 days (Office Closed Please call to make appointment) Patient Instructions/Handouts: Viral Pneumonia (DC), Airborne Precautions (DC), Droplet Precautions (GEN) Activity/Diet/Wound Care/Special Instructions: Please use medication as discussed. Please follow-up with family doctorDiana on Friday he stated to go into the office first thing in the morning and they will fit you in, please wear mask as discussed and self quarantine for the next 14 days, if at day 14 continue to be febrile, must continue to quarantine- and discuss with primary care provider for further recommendations for self isolation. Please return to emergency room if the symptoms increase or worsen or for any other concerns. Social distancing Covid 19 results pending Discharge Disposition: HOME SELF-CARE
== END 2019-07-03 16:16 | disposition home or self-care (01) | DRG 194 ==
LOC: EC 08:22 → 4SSUR 13:24
PROVIDERS: ADMIT Hospitalist; ATTEND Hospitalist
DX: J12.9 Viral pneumonia, unspecified (principal); Z68.41 Body mass index [BMI] 40.0-44.9, adult; I42.8 Other cardiomyopathies; I48.19 Other persistent atrial fibrillation; R73.03 Prediabetes; E66.01 Morbid (severe) obesity due to excess calories; E78.5 Hyperlipidemia, unspecified; F40.240 Claustrophobia; F51.04 Psychophysiologic insomnia; B97.29 Other coronavirus as the cause of diseases classified elsewhere; I25.10 Atherosclerotic heart disease of native coronary artery without angina pectoris; J98.01 Acute bronchospasm; Z79.01 Long term (current) use of anticoagulants; Z79.82 Long term (current) use of aspirin; Z79.84 Long term (current) use of oral hypoglycemic drugs; Z79.899 Other long term (current) drug therapy; Z83.3 Family history of diabetes mellitus; Z87.19 Personal history of other diseases of the digestive system; R06.81 Apnea, not elsewhere classified; Z90.49 Acquired absence of other specified parts of digestive tract; Z87.891 Personal history of nicotine dependence; R19.7 Diarrhea, unspecified
CPT/HCPCS: 36415; 71046; 80048; 80053; 81003; 83605; 83880; 84145; 84484; 85025; 87040; 87502; 93005; 94640; 96365; 96367; 99285

== ENCOUNTER → 2019-07-19 | Outpatient (CLI) | payer MEDICAID ==
--- NOTE | 2019-07-19 09:06 | XR ---
EXAMINATION TYPE: XR chest 2V DATE OF EXAM: 07/19/2019 COMPARISON: 07/02/2019 HISTORY: Shortness of breath TECHNIQUE: Frontal and lateral views of the chest are obtained. FINDINGS: Scattered senescent parenchymal changes noted. Hyperinflation compatible with COPD. Scattered areas of nodular infiltrates persist although appear to be improved. Correlate clinically a nd progress studies are advised. Heart size is stable. Mediastinal structures are stable and grossly unremarkable. No evidence for hilar prominence. Degenerative changes dorsal spine. IMPRESSION: 1. Scattered areas of nodular infiltrates persist although appear to be improved. Correlate clinicall y and progress studies are advised.
== END | disposition home or self-care (01) ==
LOC: RADXRMAIN 08:46
PROVIDERS: ATTEND Family Medicine
DX: R91.8 Other nonspecific abnormal finding of lung field (principal)
CPT/HCPCS: 71046

== ENCOUNTER → 2019-07-25 | Outpatient (CLI) | payer MEDICAID ==
--- NOTE | 2019-07-25 14:54 | XR ---
EXAMINATION TYPE: XR chest 2V DATE OF EXAM: 07/25/2019 COMPARISON: 07/02/2019 and 07/19/2019 HISTORY: Cough TECHNIQUE: FINDINGS: Heart and mediastinum are normal. There is poorly marginated 2 cm infiltrate lateral aspect of the right midlung. The other lung resendiz are clear. There are no hilar masses. There is no pleura l effusion. Bony thorax is intact IMPRESSION: Minimal infiltrate in the right lung unchanged compared to recent exam of 07/19/2019. Ther e is clearing of small infiltrates left lower lobe compared to 07/02/2019. Normal heart.
== END | disposition home or self-care (01) ==
LOC: RADXRMAIN 14:29
PROVIDERS: ATTEND Family Medicine
DX: R91.8 Other nonspecific abnormal finding of lung field (principal)
CPT/HCPCS: 71046

== ENCOUNTER → 2019-08-17 | Outpatient (CLI) | payer MEDICAID ==
--- NOTE | 2019-08-17 07:28 | XR ---
EXAMINATION TYPE: XR chest 2V DATE OF EXAM: 08/17/2019 COMPARISON: Chest x-ray July 25, 2019. HISTORY: Covid positive follow-up. TECHNIQUE: Frontal and lateral views of the chest are obtained. FINDINGS: There is background chronic parenchymal change without suspicious new focal air space opac ity, pleural effusion, or pneumothorax seen. The cardiac silhouette size remains within normal limit s. The osseous structures are intact. IMPRESSION: Chronic changes without new or residual acute infiltrate.
[2019-08-17 08:47] LABS: HCT 43.3 % (39.0-53.0); HGB 14.1 gm/dL (13.0-17.5); MCH 31.9 pg (25.0-35.0); MCHC 32.6 g/dL (31.0-37.0); MCV 97.8 fL (80.0-100.0); Mean Platelet Volume 7.2; Platelet Count 238 k/uL (150-450); RBC 4.43 m/uL (4.30-5.90); RDW 12.6 % (11.5-15.5); WBC 5.2 k/uL (3.8-10.6)
[2019-08-17 08:54] LABS: ALT 23 U/L (4-49); AST 24 U/L (17-59); Cholesterol 170 mg/dL (<200); HDL Cholesterol 54 mg/dL (40-60); LDL Cholesterol,Calculated 96 mg/dL (0-99); Triglycerides 98 mg/dL (<150)
== END | disposition home or self-care (01) ==
LOC: RADXRMAIN 07:06
PROVIDERS: ATTEND Family Medicine
DX: J98.4 Other disorders of lung (principal); E78.00 Pure hypercholesterolemia, unspecified; E11.9 Type 2 diabetes mellitus without complications; I10 Essential (primary) hypertension
CPT/HCPCS: 71046; 80061; 83036; 84450; 84460; 85027

== ENCOUNTER → 2019-09-13 | Outpatient (CLI) | payer MEDICAID | END | disposition home or self-care (01) | LOC: LABWHC1 11:06 | PROVIDERS: ATTEND Family Medicine | DX: Z20.828 Contact with and (suspected) exposure to other viral communicable diseases (principal) | CPT/HCPCS: 36415; 86769 ==

== ENCOUNTER 2019-09-21 04:53 | Emergency (ER) | payer MEDICAID ==
[2019-09-21 05:09] VITALS: BP 138/90; PULSE 66; RESP 18; TEMP 98.1
--- NOTE | 2019-09-21 05:12 | ED ---
Skin/Abscess/FB HPI - General Chief complaint: Skin/Abscess/Foreign Body Stated complaint: hives Time Seen by Provider: 09/21/19 04:54 Source: patient, RN notes reviewed, old records reviewed Mode of arrival: ambulatory Limitations: no limitations - History of Present Illness Initial comments: This is a 54-year-old male DF for evaluation patient presents for evaluation of rashes is reevaluation of rash. Has currently diffuse body rash which is itchy in nature gets worsens occasionally gets better worsen [place] worsening takes a shower worsening sleeping. Denies any shortness of breath or other pain. No other complaints no fevers. No other illnesses or recent travel history. Patient was seen by primary care given steroids shot and that did appear to help MD complaint: rash -: days(s) Location: generalized Severity: moderate Severity scale (1-10): 4 Quality: other (Itchy) Consistency: intermittent Improves with: none Worsens with: none Context: none Associated symptoms: denies other symptoms - Related Data Home Medications Medication Instructions Recorded Confirmed Zolpidem Tartrate 10 mg PO HS 11/13/16 07/02/19 Aspirin [Adult Low Dose Aspirin EC] 81 mg PO DAILY 04/24/17 07/02/19 Atorvastatin [Lipitor] 20 mg PO HS 06/03/17 07/02/19 Rivaroxaban [Xarelto] 20 mg PO HS 06/03/17 07/02/19 Sotalol [Betapace] 80 mg PO BID 06/03/17 07/02/19 Magnesium Oxide [Mag-Ox] 400 mg PO DAILY 04/29/19 07/02/19 Metoprolol Succinate (ER) [Toprol 12.5 mg PO DAILY 04/29/19 07/02/19 XL] Montelukast [Singulair] 10 mg PO HS 04/29/19 07/02/19 Spironolactone [Aldactone] 12.5 mg PO DAILY 04/29/19 07/02/19 metFORMIN HCL [Glucophage] 500 mg PO BID 04/29/19 07/02/19 Benzonatate [Tessalon Perles] 100 mg PO TID PRN 07/02/19 07/02/19 Docusate [Colace] 100 mg PO DAILY 07/02/19 07/02/19 Guaifen/Phenyleph/Acetaminophn 30 ml PO Q12H PRN 07/02/19 07/02/19 [Mucinex Sinus-Max Severe Liq] Previous Rx's Medication Instructions Recorded Azithromycin [Zithromax Z-pack] 0 mg PO DAILY 4 Days #4 tab 07/02/19 Albuterol Inhaler (Mhu) [Ventolin 2 puff INHALATION RT-QID puff 07/03/19 Hfa Inhaler (Mhu)] Tiotropium 18 Mcg/Puff [Spiriva] 1 puff INHALATION RT-DAILY inhaler 07/03/19 predniSONE 0 mg PO DIRECTED #10 tab 07/03/19 Famotidine [Pepcid] 40 mg PO BID #20 tab 09/21/19 hydrOXYzine HCL [Atarax] 50 mg PO TID PRN #15 tab 09/21/19 predniSONE 50 mg PO DAILY #5 tab 09/21/19 Allergies Allergy/AdvReac Type Severity Reaction Status Date / Time No Known Allergies Allergy Verified 09/21/19 05:09 Review of Systems ROS Statement: Those systems with pertinent positive or pertinent negative responses have been documented in the HPI. ROS Other: All systems not noted in ROS Statement are negative. Past Medical History Past Medical History: Atrial Fibrillation, Coronary Artery Disease (CAD), Diabetes Mellitus, GI Bleed, Sleep Apnea/CPAP/BIPAP Additional Past Medical History / Comment(s): NIDDM type II, lower GI bleed, diverticular disease, benign colon polyps History of Any Multi-Drug Resistant Organisms: None Reported Past Surgical History: Appendectomy, Bowel Resection, Cardiac Ablation, Heart Catheterization, Tonsillectomy Additional Past Surgical History / Comment(s): 2017 colon resection, colonoscopies/benign polypectomy, cryoablation pulmonary veins, septorhinoplasty, wisdom teeth extractions. Past Anesthesia/Blood Transfusion Reactions: No Reported Reaction Additional Past Anesthesia/Blood Transfusion Reaction / Comment(s): CLAUSTROPHOBIA Past Psychological History: No Psychological Hx Reported Smoking Status: Former smoker Past Alcohol Use History: Rare Past Drug Use History: None Reported - Past Family History Mother Family Medical History: Diabetes Mellitus Additional Family Medical History / Comment(s): Mother had diverticular disease. She had a obstructed bowel and had emergency surgery. Father Additional Family Medical History / Comment(s): Father had to have 3 colostomies in his life. Sister(s) Family Medical History: Cancer Additional Family Medical History / Comment(s): breast General Exam Limitations: no limitations General appearance: alert, in no apparent distress Head exam: Present: atraumatic, normocephalic, normal inspection Eye exam: Present: normal appearance, PERRL, EOMI. Absent: scleral icterus, conjunctival injection, periorbital swelling ENT exam: Present: normal exam, mucous membranes moist Neck exam: Present: normal inspection. Absent: tenderness, meningismus, lymphadenopathy Respiratory exam: Present: normal lung sounds bilaterally. Absent: respiratory distress, wheezes, rales, rhonchi, stridor Cardiovascular Exam: Present: regular rate, normal rhythm, normal heart sounds. Absent: systolic murmur, diastolic murmur, rubs, gallop, clicks GI/Abdominal exam: Present: soft, normal bowel sounds. Absent: distended, tenderness, guarding, rebound, rigid Extremities exam: Present: normal inspection, full ROM, normal capillary refill. Absent: tenderness, pedal edema, joint swelling, calf tenderness Back exam: Present: normal inspection Neurological exam: Present: alert, oriented X3, CN II-XII intact Psychiatric exam: Present: normal affect, normal mood Skin exam: Present: warm, dry, intact, normal color, urticaria. Absent: rash Course Vital Signs 09/21/19 05:06 Temperature 98.1 F Pulse Rate 66 Respiratory 18 Rate Blood Pressure 138/90 O2 Sat by Pulse 97 Oximetry - Reevaluation(s) Reevaluation #1: Medical records reviewed Symptoms much improved here in the ER Medical Decision Making - Medical Decision Making 54 male to the ER urticarial rash. Patient has improvement in rash symptoms here in the ER will be given symptomatically treatment can be discharged, unknown cause Disposition Clinical Impression: Urticaria, Allergic reaction to drug Disposition: HOME SELF-CARE Condition: Good Instructions (If sedation given, give patient instructions): Urticaria (ED) Prescriptions: hydrOXYzine HCL [Atarax] 50 mg PO TID PRN #15 tab PRN Reason: Itching Famotidine [Pepcid] 40 mg PO BID #20 tab predniSONE 50 mg PO DAILY #5 tab Is patient prescribed a controlled substance at d/c from ED?: No Referrals: Bunny Ortiz DO [Primary Care Provider] - 1-2 days
[2019-09-21] MEDS ORDERED: FAMOTIDINE 20 MG TAB PO STA (05:37)
[2019-09-21] MEDS ORDERED: hydrOXYzine HCL 25 MG TAB PO STA (05:37)
[2019-09-21] MEDS ORDERED: DEXAMETHASONE SOD PHOSPHATE 10 MG/ML 1 ML VIAL IM STA (05:37)
== END 2019-09-21 05:58 | disposition home or self-care (01) ==
LOC: EC 04:53
DX: L50.9 Urticaria, unspecified (principal); T50.905A Adverse effect of unspecified drugs, medicaments and biological substances, initial encounter; I48.91 Unspecified atrial fibrillation; I25.10 Atherosclerotic heart disease of native coronary artery without angina pectoris; E11.9 Type 2 diabetes mellitus without complications; G47.30 Sleep apnea, unspecified; Z87.891 Personal history of nicotine dependence; Z99.89 Dependence on other enabling machines and devices; Z79.899 Other long term (current) drug therapy; Z79.82 Long term (current) use of aspirin; Z79.84 Long term (current) use of oral hypoglycemic drugs; Z95.5 Presence of coronary angioplasty implant and graft
CPT/HCPCS: 99283; 96372; J1100

== ENCOUNTER 2019-10-13 08:12 | Day surgery (SDC) | payer MEDICAID ==
[2019-10-11 11:06] VITALS: BMI 44.0
[~2019-10-13 08:12] MED LIST changes: +DEXAMETHASONE SOD PHOSPHATE 10 MG/ML 1 ML VIAL IV ONE; +DEXAMETHASONE SOD PHOSPHATE 4 MG/ML 1 ML VIAL IV ONE; +FAMOTIDINE 20 MG/2 ML VIAL IV ONE; +HYDROmorphone 0.5 MG/0.5 ML SYRINGE IVP PRN; -LIDOCAINE 1% INJ 10MG/ML (20 ML MDV) ONE; +ONDANSETRON 4 MG/2 ML VIAL IVP ONE; -PROPOFOL 10 MG/ML 20 ML VIAL IV ONE
[2019-10-13] MEDS ORDERED: OXYMETAZOLINE 0.05% NASL SPRAY 1 SPRAY BOTTLE ONE ×2 (08:34→09:01)
[2019-10-13] MEDS ORDERED: ONDANSETRON 4 MG/2 ML VIAL ONE (08:34)
[2019-10-13] MEDS: OXYMETAZOLINE 0.05% NASL SPRAY 1 SPRAY BOTTLE NASAL ONE ×4 (08:40→09:00)
[2019-10-13] MEDS ORDERED: LACTATED RINGERS 1,000 ML IV ONE (08:47)
[2019-10-13 08:56] LABS: Glucose,Whole Blood 164 mg/dL (75-99)
[2019-10-13] MEDS ORDERED: SUCCINYLCHOLINE CHLORIDE 100 MG/5 ML SYR IV ONE (09:57)
[2019-10-13] MEDS ORDERED: GLYCOPYRROLATE 0.2 MG/ML 2 ML VIAL ONE (09:57)
[2019-10-13] MEDS ORDERED: PROPOFOL 10 MG/ML 20 ML VIAL IV ONE (09:57)
[2019-10-13] MEDS ORDERED: ROCURONIUM BROMIDE 10 MG/ML 5 ML VIAL IV ONE (09:57)
[2019-10-13] MEDS ORDERED: PHENYLEPHRINE-0.9% NACL SYG 1 MG/10 ML SYRINGE ONE (09:57)
[2019-10-13] MEDS ORDERED: ePHEDrine SULFATE/0.9% NACL/PF 50 MG/5 ML SYRINGE IV ONE (09:57)
[2019-10-13] MEDS ORDERED: MIDAZOLAM 2 MG/2 ML VIAL ONE (09:57)
[2019-10-13] MEDS ORDERED: fentaNYL (PF) 50 MCG/ML 2 ML AMP ONE (09:57)
[2019-10-13] MEDS ORDERED: NEOSTIGMINE 1 MG/ML 10 ML VIAL ONE (09:57)
[2019-10-13] MEDS ORDERED: BACITRACIN 500 UNIT/GM OINT 28.4 GM TUBE TOPICAL ONE (10:18)
[2019-10-13] MEDS ORDERED: LIDOCAINE 1%-EPI 1:100,000 20 ML VIAL SQ ONE (10:18)
[2019-10-13] MEDS ORDERED: HYDROcodone/APAP 5-325MG 1 EACH TAB ONE (13:10)
[2019-10-13] MEDS ORDERED: HYDROcodone/APAP 5-325MG 1 EACH TAB PO ONE (13:12)
--- NOTE | 2019-10-13 21:00 | OP ---
OPERATIVE REPORT PREOPERATIVE DIAGNOSES: 1. Deviated nasal septum. 2. Inferior turbinate hypertrophy. 3. Chronic sinusitis. 4. Obstructive sleep apnea. 5. Adenoid hypertrophy. POSTOPERATIVE DIAGNOSES: 1. Deviated nasal septum. 2. Inferior turbinate hypertrophy. 3. Chronic sinusitis. 4. Obstructive sleep apnea. 5. Adenoid hypertrophy. PROCEDURES: 1. Septoplasty. 2. Outfracture, submucous resection of the inferior turbinates. 3. Bilateral endoscopic sinus surgery, including bilateral maxillary antrostomy with removal of tissue from the maxillary sinuses and right anterior ethmoidectomy. 4. Adenoidectomy. 5. Uvulopalatopharyngoplasty. ANESTHESIA: General. ESTIMATED BLOOD LOSS: Minimal; 5 mL. COMPLICATIONS: None. INDICATIONS: This is a 54-year-old white male who has chronic difficulties with nasal airway obstruction, congestion, recurrent sinus infections as well as chronic sinusitis based on CT scan as well as notable adenoid hypertrophy on physical exam. He also has a history of sleep apnea with an AHI of 20, but intolerant to CPAP. OPERATIVE FINDINGS: Nasal septum deviated to the left anteriorly and to the right posteriorly. Inferior turbinate hypertrophy bilaterally. Maxillary ostia were obstructed bilaterally with small cysts in the maxillary sinuses bilaterally. Mucosal thickening in the anterior ethmoid air cells on the right. Adenoids were mildly hypertrophied and therefore were vaporized with suction cautery. The uvula and soft palate were redundant and low- lying. PROCEDURE DESCRIPTION: The patient was brought to the operative suite and placed in a supine position. Patient underwent induction of general anesthesia with oral endotracheal intubation without difficulty. The patient was prepped and draped in the usual aseptic fashion. Lidocaine 1% with 1:100,000 epinephrine was infused submucosally in both sides of the nasal septum, lateral nasal vick and anterior tips of the middle turbinates bilaterally. The were in the operating field for monitoring throughout the case and CT scan was on the computer screen for review throughout the case, also. While the local anesthetic was taking vasoconstrictive effect, the inferior turbinates were infractured with a Baraga elevator. Partial submucous resection of the inferior turbinates was performed with Coblation device ablating a portion of the submucosal soft tissue of the inferior turbinates, and then outfractured with the Baraga elevator. A left hemitransfixion incision was made with a mucoperichondrial mucoperiosteal flap in the left elevated. Bony cartilaginous junction was disarticulated and the mucoperiosteal flap on the right was elevated. Bony nasal septal deformities were removed with Hiral forceps. An inferior cartilaginous strut was removed, leaving a full 1.5 cm caudal strut. Checking intranasally, this corrected the nasal septal deformities and the hemitransfixion incision was closed with a running 4-0 chromic suture. A full zero-degree endoscopic examination was performed bilaterally. Beginning on the left, middle turbinate was medialized with a Bixby elevator. Maxillary ostium was located with a ballpoint probe and infundibulotomy was performed followed by uncinectomy. Maxillary antrostomy was performed at the expense of the anterior and posterior fontanelle, taking care anteriorly not to injure the lacrimal bone. Maxillary sinus was evaluated with a 30- and 70-degree endoscope, and small polyps were removed with Giraffe forceps. Attention was then turned to the right, where the procedure was followed as it was on the left, including medialization of the middle turbinate, infundibulotomy, uncinectomy, maxillary antrostomy and removal of tissue of the maxillary sinus. In addition, anterior ethmoidectomy was performed on the right from anterior to posterior with the microdebrider. Once this was completed, bilateral standard NasoPore nasal dressing was placed in the middle under direct visualization and bilateral Julio airway splints coated with bacitracin ointment were placed in the nasal cavities and sutured transseptally with a 4-0 Vicryl suture. The McIvor mouth gag was then placed. Soft palate was palpated. No submucous cleft was noted. Red Bass catheter was placed in the right nasal cavity and pulled through the oropharynx for soft palate retraction. Nasopharynx was examined with a mirror exam. The adenoids were vaporized with suction cautery. Excellent hemostasis was noted and the catheter was removed. The uvula was then grasped and retracted anteriorly to ascertain the natural crease, and the uvula as well as a small approximately 5 mm portion of the free edge of the soft palate was then excised in sharp dissection technique. Hemostasis was gained with electrocautery and the free edge of the mucosa of the soft palate was then reapproximated with simple interrupted 3- 0 Vicryl sutures. Excellent hemostasis was noted. The patient was then suctioned in orogastric fashion. The patient was allowed to emerge from general anesthesia, having tolerated the procedure well. He was extubated in the operating suite and transferred to the postoperative recovery area in satisfactory condition. ROJELIO / SANDHYA: [id number] /
[2019-10-15 09:20] VITALS: BP 128/88; PULSE 63; RESP 16
== END 2019-10-13 13:40 | disposition home or self-care (01) ==
LOC: OR 08:12
PROVIDERS: ATTEND Otolaryngology
DX: J32.8 Other chronic sinusitis (principal); J34.2 Deviated nasal septum; J35.2 Hypertrophy of adenoids; G47.33 Obstructive sleep apnea (adult) (pediatric); I48.19 Other persistent atrial fibrillation; I42.8 Other cardiomyopathies; I25.10 Atherosclerotic heart disease of native coronary artery without angina pectoris; I49.5 Sick sinus syndrome; E66.01 Morbid (severe) obesity due to excess calories; E78.5 Hyperlipidemia, unspecified; Z79.01 Long term (current) use of anticoagulants; Z79.82 Long term (current) use of aspirin; Z79.84 Long term (current) use of oral hypoglycemic drugs; Z79.899 Other long term (current) drug therapy; Z88.8 Allergy status to other drugs, medicaments and biological substances; Z68.41 Body mass index [BMI] 40.0-44.9, adult; Z95.5 Presence of coronary angioplasty implant and graft; Z90.89 Acquired absence of other organs; Z87.891 Personal history of nicotine dependence; Z82.49 Family history of ischemic heart disease and other diseases of the circulatory system; Z98.890 Other specified postprocedural states
CPT/HCPCS: 88305; 88300; 88302; 42831; 31267; 31254; 30802; 30520; 42145; J2250; J1100; J2710; J2405; J3010; J2370; J0330; J2704

== ENCOUNTER → 2019-12-27 | Outpatient (CLI) | payer MEDICAID ==
[2019-12-27 10:57] LABS: HCT 45.6 % (39.0-53.0); HGB 14.7 gm/dL (13.0-17.5); MCH 30.9 pg (25.0-35.0); MCHC 32.3 g/dL (31.0-37.0); MCV 95.7 fL (80.0-100.0); Mean Platelet Volume 6.8; Platelet Count 269 k/uL (150-450); RBC 4.77 m/uL (4.30-5.90); RDW 12.5 % (11.5-15.5)
[2019-12-27 17:50] LABS: African American GFR (CKD) 98.5 (60.0-200.0); Anion Gap 7.3 mmol/L (4.00-12.00); Calcium 8.8 mg/dL (8.7-10.3); Carbon Dioxide 25.7 mmol/L (21.6-31.8); Chol/HDL Ratio 2.96; Non-African American GFR(CKD) 84.9 (60.0-200.0); Potassium 4.6 mmol/L (3.5-5.5)
[2019-12-27 19:44] LABS: Hemoglobin A1C 7.1 % (4.0-6.0)
== END | disposition home or self-care (01) ==
LOC: LABWHC1 09:10
PROVIDERS: ATTEND Family Medicine
DX: E11.65 Type 2 diabetes mellitus with hyperglycemia (principal); E78.00 Pure hypercholesterolemia, unspecified; I10 Essential (primary) hypertension
CPT/HCPCS: 36415; 80048; 80061; 83036; 84450; 84460; 85027

== ENCOUNTER → 2020-03-08 | Outpatient (CLI) | payer MEDICAID ==
[2020-03-08 16:07] LABS: Basophils # (A) 0.1 k/uL (0-0.2); Basophils % (A) 1 %; Eosinophils # (A) 0.2 k/uL (0-0.7); Eosinophils % (A) 3 %; HCT 44.8 % (39.0-53.0); HGB 15.4 gm/dL (13.0-17.5); Lymphocytes # (A) 2.3 k/uL (1.0-4.8); Lymphocytes % (A) 32 %; MCH 32.3 pg (25.0-35.0); MCHC 34.3 g/dL (31.0-37.0); MCV 94.1 fL (80.0-100.0); Mean Platelet Volume 6.4; Monocytes # (A) 0.7 k/uL (0-1.0); Monocytes % (A) 9 %; Neutrophils # (A) 3.9 k/uL (1.3-7.7); Neutrophils % (A) 54 %; Platelet Count 258 k/uL (150-450); RBC 4.76 m/uL (4.30-5.90); WBC 7.3 k/uL (3.8-10.6)
--- NOTE | 2020-03-08 20:50 | XR ---
EXAMINATION TYPE: XR chest 2V DATE OF EXAM: 03/08/2020 COMPARISON: NONE HISTORY: Chest pain TECHNIQUE: 3 views FINDINGS: Heart and mediastinum are normal. Lungs are clear. Diaphragm is normal. Bony thorax appears normal. IMPRESSION: Normal chest.
[2020-03-09 02:37] LABS: African American GFR (CKD) 98.5 (60.0-200.0); Anion Gap 9.3 mmol/L (4.00-12.00); Calcium 9.8 mg/dL (8.7-10.3); Carbon Dioxide 26.7 mmol/L (21.6-31.8); Non-African American GFR(CKD) 84.9 (60.0-200.0)
== END | disposition home or self-care (01) ==
LOC: LABWHC1 15:35
PROVIDERS: ATTEND Family Medicine
DX: J20.9 Acute bronchitis, unspecified (principal)
CPT/HCPCS: 80048; 85025; 87502; 71046; 36415; U0003; C9803

== ENCOUNTER → 2020-04-19 | Outpatient (CLI) | payer MEDICAID ==
[2020-04-19 07:38] LABS: HCT 42.4 % (39.0-53.0); HGB 14.4 gm/dL (13.0-17.5); MCH 32.1 pg (25.0-35.0); MCHC 33.9 g/dL (31.0-37.0); MCV 94.7 fL (80.0-100.0); Mean Platelet Volume 6.8; Platelet Count 255 k/uL (150-450); RBC 4.48 m/uL (4.30-5.90); RDW 12.4 % (11.5-15.5); WBC 5.2 k/uL (3.8-10.6)
[2020-04-19 12:40] LABS: African American GFR (CKD) 78.4 (60.0-200.0); Albumin/Globulin Ratio 2.35 (1.60-3.17); Anion Gap 5.7 mmol/L (4.00-12.00); BUN/Creat Ratio 15.83 Ratio (12.00-20.00); Calcium 8.9 mg/dL (8.7-10.3); Carbon Dioxide 29.3 mmol/L (21.6-31.8); Chol/HDL Ratio 2.7; Globulin 1.7 g/dL (1.6-3.3); LDL Cholesterol,Calculated 60.8 mg/dL (0.0-131.0); Magnesium 1.8 mg/dL (1.5-2.4); Non-African American GFR(CKD) 67.7 (60.0-200.0); Total Bilirubin 0.4 mg/dL (0.2-1.2); Total Protein 5.7 g/dL (6.2-8.2); VLDL Calculation 14.2 mg/dL (5.00-40.00)
[2020-04-19 12:48] LABS: Prostate Specific Antigen 0.9 ng/mL (0.0-3.5)
[2020-04-19 13:44] LABS: Hemoglobin A1C 7.2 % (4.0-6.0)
== END | disposition home or self-care (01) ==
LOC: LABWHC1 07:03
PROVIDERS: ATTEND Family Medicine
DX: Z00.00 Encounter for general adult medical examination without abnormal findings (principal); E11.9 Type 2 diabetes mellitus without complications
CPT/HCPCS: 36415; 80053; 80061; 82306; 83036; 83735; 84153; 85027

== ENCOUNTER 2020-07-13 16:02 | Emergency (ER) | payer MEDICAID ==
[2020-07-13 16:18] VITALS: RESP 18; TEMP 98.8
[2020-07-13] MEDS ORDERED: SODIUM CHLORIDE 0.9% 1,000 ML IV STA (17:16)
[2020-07-13 17:19] LABS: Glucose,Whole Blood 149 mg/dL (75-99)
[2020-07-13 17:28] LABS: Basophils % (A) 0 %; Eosinophils # (A) 0.1 k/uL (0-0.7); Eosinophils % (A) 1 %; HCT 42.6 % (39.0-53.0); HGB 14.4 gm/dL (13.0-17.5); Lymphocytes # (A) 0.7 k/uL (1.0-4.8); Lymphocytes % (A) 15 %; MCH 31.5 pg (25.0-35.0); MCHC 33.7 g/dL (31.0-37.0); MCV 93.4 fL (80.0-100.0); Mean Platelet Volume 6.7; Monocytes # (A) 0.3 k/uL (0-1.0); Monocytes % (A) 7 %; Neutrophils # (A) 3.7 k/uL (1.3-7.7); Neutrophils % (A) 76 %; Platelet Count 206 k/uL (150-450); RBC 4.57 m/uL (4.30-5.90); RDW 13.2 % (11.5-15.5); WBC 4.9 k/uL (3.8-10.6)
[2020-07-13 17:37] LABS: Partial Thromboplastin Time 24.2 sec (22.0-30.0); Prothrombin Time 10.7 sec (9.0-12.0)
[2020-07-13 17:48] LABS: Albumin 3.7 g/dL (3.5-5.0); Calcium 9.1 mg/dL (8.4-10.2); Magnesium 1.7 mg/dL (1.6-2.3); Potassium 4.4 mmol/L (3.5-5.1); Total Bilirubin 0.8 mg/dL (0.2-1.3); Total Protein 6.3 g/dL (6.3-8.2)
--- NOTE | 2020-07-13 18:27 | ED ---
General Adult HPI - General Chief complaint: Recheck/Abnormal Lab/Rx Stated complaint: yovani Time Seen by Provider: 07/13/20 16:10 Source: EMS Mode of arrival: EMS Limitations: no limitations - History of Present Illness Initial comments: 55-year-old male past medical history of A. fib, diabetes who presents emergency department after he had a presyncopal episode. Patient states she was waiting in the waiting room Dr. Ritter's office when his was having a doctor's appointment. States that he felt shaky as if he was going to pass out. He did receive his second Covid vaccination yesterday and since then he has had body aches, chills and nausea. Patient did not eat anything before going to detox appointment. States he felt size rolled back of his head. He lost consciousness but only for a few minutes. He did not sustain any type of trauma. EMS was called. Accu-Chek was normal. Upon presentation to the emergency department the patient continues to report myalgias and chills however states he otherwise feels fine. Denies any headaches or visual changes. No unilateral numbness or weakness. No nausea or vomiting. There was no seizure- like activity. No other alleviating, precipitating or modifying factors - Related Data Home Medications Medication Instructions Recorded Confirmed Zolpidem Tartrate 10 mg PO HS PRN 11/13/16 07/13/20 Aspirin [Adult Low Dose Aspirin EC] 81 mg PO DAILY 04/24/17 07/13/20 Rivaroxaban [Xarelto] 20 mg PO HS 06/03/17 07/13/20 Sotalol [Betapace] 80 mg PO BID 06/03/17 07/13/20 Magnesium Oxide [Mag-Ox] 400 mg PO DAILY 04/29/19 07/13/20 Metoprolol Succinate (ER) [Toprol 12.5 mg PO DAILY 04/29/19 07/13/20 XL] Spironolactone [Aldactone] 25 mg PO Q48H 04/29/19 07/13/20 lisinopriL [Zestril] 2.5 mg PO DAILY 10/11/19 07/13/20 Atorvastatin [Lipitor] 80 mg PO HS 07/13/20 07/13/20 metFORMIN HCL 1,000 mg PO BID 07/13/20 07/13/20 Allergies Allergy/AdvReac Type Severity Reaction Status Date / Time No Known Allergies Allergy Verified 07/13/20 18:23 Review of Systems ROS Statement: Those systems with pertinent positive or pertinent negative responses have been documented in the HPI. ROS Other: All systems not noted in ROS Statement are negative. Past Medical History Past Medical History: Atrial Fibrillation, Coronary Artery Disease (CAD), Diabetes Mellitus, GI Bleed, Pneumonia, Sleep Apnea/CPAP/BIPAP Additional Past Medical History / Comment(s): patient states "pre-diabetic", hx lower GI bleed, diverticular disease, benign colon polyps, does not use CPAP, hx of pneumonia and postive covid 06/27/19 History of Any Multi-Drug Resistant Organisms: None Reported Past Surgical History: Appendectomy, Bowel Resection, Cardiac Ablation, Heart Catheterization, Tonsillectomy Additional Past Surgical History / Comment(s): 2017 colon resection, colonoscopies/benign polypectomy, cryoablation pulmonary veins, septorhinoplasty, wisdom teeth extractions. Past Anesthesia/Blood Transfusion Reactions: No Reported Reaction Additional Past Anesthesia/Blood Transfusion Reaction / Comment(s): CLAUSTROPHOBIA Past Psychological History: No Psychological Hx Reported Smoking Status: Never smoker Past Alcohol Use History: None Reported Past Drug Use History: None Reported - Past Family History Mother Family Medical History: Diabetes Mellitus Additional Family Medical History / Comment(s): Mother had diverticular disease. She had a obstructed bowel and had emergency surgery. Father Additional Family Medical History / Comment(s): Father had to have 3 colostomies in his life. Sister(s) Family Medical History: Cancer Additional Family Medical History / Comment(s): breast General Exam Limitations: no limitations General appearance: alert, in no apparent distress Head exam: Present: atraumatic, normocephalic, normal inspection Eye exam: Present: normal appearance, PERRL, EOMI. Absent: scleral icterus, conjunctival injection, periorbital swelling ENT exam: Present: normal exam, mucous membranes moist Neck exam: Present: normal inspection. Absent: tenderness, meningismus, lymphadenopathy Respiratory exam: Present: normal lung sounds bilaterally. Absent: respiratory distress, wheezes, rales, rhonchi, stridor Cardiovascular Exam: Present: regular rate, normal rhythm, normal heart sounds. Absent: systolic murmur, diastolic murmur, rubs, gallop, clicks GI/Abdominal exam: Present: soft, normal bowel sounds. Absent: distended, tenderness, guarding, rebound, rigid Extremities exam: Present: normal inspection, full ROM, normal capillary refill. Absent: tenderness, pedal edema, joint swelling, calf tenderness Back exam: Present: normal inspection Neurological exam: Present: alert, oriented X3, CN II-XII intact Psychiatric exam: Present: normal affect, normal mood Skin exam: Present: warm, dry, intact, normal color. Absent: rash Course Vital Signs 07/13/20 07/13/20 16:09 18:31 Temperature 98.8 F Pulse Rate 65 66 Respiratory 18 18 Rate Blood Pressure 106/67 105/69 O2 Sat by Pulse 100 100 Oximetry EKG Findings - EKG Comments: EKG Findings:: EKG demonstrates normal sinus rhythm with a ventricular rate of 70. TN interval 142. QRS 84. QTC 442. No acute ST segment elevation or depression concerning for ischemic changes or infarction Medical Decision Making - Medical Decision Making Upon arrival patient was placed into room 17. A thorough history and physical exam was performed. Patient up to continuous pulse ox and cardiac monitoring. 12-lead EKG was performed. Patient does agree to laboratory studies. They are reviewed and they are discussed with the patient. Patient states he feels well enough to go home at this time. 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 Patient is to follow-up with his primary care doctor in 2-4 days. Return for any new or worsening symptoms per patient was discharged home in stable condition - Lab Data Result diagrams: 07/13/20 17:22 07/13/20 17:22 Lab Results 07/13/20 07/13/20 07/13/20 Range/Units 17:18 17:22 17:22 WBC 4.9 (3.8-10.6) k/uL RBC 4.57 (4.30-5.90) m/uL Hgb 14.4 (13.0-17.5) gm/dL Hct 42.6 (39.0-53.0) % MCV 93.4 (80.0-100.0) fL MCH 31.5 (25.0-35.0) pg MCHC 33.7 (31.0-37.0) g/dL RDW 13.2 (11.5-15.5) % Plt Count 206 (150-450) k/uL MPV 6.7 Neutrophils % 76 % Lymphocytes % 15 % Monocytes % 7 % Eosinophils % 1 % Basophils % 0 % Neutrophils # 3.7 (1.3-7.7) k/uL Lymphocytes # 0.7 L (1.0-4.8) k/uL Monocytes # 0.3 (0-1.0) k/uL Eosinophils # 0.1 (0-0.7) k/uL Basophils # 0.0 (0-0.2) k/uL PT 10.7 (9.0-12.0) sec INR 1.0 (<1.2) APTT 24.2 (22.0-30.0) sec Sodium (137-145) mmol/L Potassium (3.5-5.1) mmol/L Chloride (98-107) mmol/L Carbon Dioxide (22-30) mmol/L Anion Gap mmol/L BUN (9-20) mg/dL Creatinine (0.66-1.25) mg/dL Est GFR (CKD-EPI)AfAm (>60 ml/min/1.73 sqM) Est GFR (CKD-EPI)NonAf (>60 ml/min/1.73 sqM) Glucose (74-99) mg/dL POC Glucose (mg/dL) 149 H (75-99) mg/dL POC Glu Apartment Rental Agent ID Zaynab Ramirez Calcium (8.4-10.2) mg/dL Magnesium (1.6-2.3) mg/dL Total Bilirubin (0.2-1.3) mg/dL AST (17-59) U/L ALT (4-49) U/L Alkaline Phosphatase (38-126) U/L Creatine Kinase (55-170) U/L Troponin I (0.000-0.034) ng/mL Total Protein (6.3-8.2) g/dL Albumin (3.5-5.0) g/dL 07/13/20 07/13/20 Range/Units 17:22 17:22 WBC (3.8-10.6) k/uL RBC (4.30-5.90) m/uL Hgb (13.0-17.5) gm/dL Hct (39.0-53.0) % MCV (80.0-100.0) fL MCH (25.0-35.0) pg MCHC (31.0-37.0) g/dL RDW (11.5-15.5) % Plt Count (150-450) k/uL MPV Neutrophils % % Lymphocytes % % Monocytes % % Eosinophils % % Basophils % % Neutrophils # (1.3-7.7) k/uL Lymphocytes # (1.0-4.8) k/uL Monocytes # (0-1.0) k/uL Eosinophils # (0-0.7) k/uL Basophils # (0-0.2) k/uL PT (9.0-12.0) sec INR (<1.2) APTT (22.0-30.0) sec Sodium 136 L (137-145) mmol/L Potassium 4.4 (3.5-5.1) mmol/L Chloride 101 (98-107) mmol/L Carbon Dioxide 27 (22-30) mmol/L Anion Gap 8 mmol/L BUN 18 (9-20) mg/dL Creatinine 1.21 (0.66-1.25) mg/dL Est GFR (CKD-EPI)AfAm 78 (>60 ml/min/1.73 sqM) Est GFR (CKD-EPI)NonAf 67 (>60 ml/min/1.73 sqM) Glucose 147 H (74-99) mg/dL POC Glucose (mg/dL) (75-99) mg/dL POC Glu Apartment Rental Agent ID Calcium 9.1 (8.4-10.2) mg/dL Magnesium 1.7 (1.6-2.3) mg/dL Total Bilirubin 0.8 (0.2-1.3) mg/dL AST 31 (17-59) U/L ALT 27 (4-49) U/L Alkaline Phosphatase 68 (38-126) U/L Creatine Kinase 113 (55-170) U/L Troponin I <0.012 (0.000-0.034) ng/mL Total Protein 6.3 (6.3-8.2) g/dL Albumin 3.7 (3.5-5.0) g/dL Disposition Clinical Impression: Syncope Disposition: HOME SELF-CARE Condition: Stable Instructions (If sedation given, give patient instructions): Syncope (ED) Additional Instructions: Please follow-up with your primary care doctor in 2-4 days. Return to the emergency room for any new or worsening symptoms Is patient prescribed a controlled substance at d/c from ED?: No Referrals: Bunny Ortiz DO [Primary Care Provider] - 1-2 days Time of Disposition: 18:27
[2020-07-13 18:37] VITALS: BP 105/69; PULSE 66
== END 2020-07-13 18:31 | disposition home or self-care (01) ==
LOC: EC 16:02
DX: R55 Syncope and collapse (principal); I48.91 Unspecified atrial fibrillation; I25.10 Atherosclerotic heart disease of native coronary artery without angina pectoris; E11.9 Type 2 diabetes mellitus without complications; G47.30 Sleep apnea, unspecified; Z79.82 Long term (current) use of aspirin; Z79.01 Long term (current) use of anticoagulants; Z79.899 Other long term (current) drug therapy; Z79.84 Long term (current) use of oral hypoglycemic drugs; Z99.89 Dependence on other enabling machines and devices
CPT/HCPCS: 36415; 80053; 82550; 83735; 84484; 85025; 85610; 85730; 93005; 96360; 99285

== ENCOUNTER → 2020-08-07 | Outpatient (CLI) | payer MEDICAID ==
--- NOTE | 2020-08-07 16:15 | MR ---
EXAMINATION TYPE: MR brain wo con DATE OF EXAM: 08/07/2020 COMPARISON: NONE HISTORY: Syncope TECHNIQUE: Multiplanar, multisequence imaging of the brain and brainstem is performed without IV cont rast. FINDINGS: Diffusion weighted images demonstrate no evidence of a recent infarct or other diffusion abnormality. There is no extraaxial fluid collection or significant white matter signal abnormality. The ventricu lar system and cisternal spaces are normal in size and appearance. The brain volume is age appropria te. Midline structures demonstrate normal morphology. The craniocervical junction appears within normal limits. Normal vascular flow voids are present. Dominant left vertebral artery with a tortuous course . Mucosal thickening involving ethmoid sinuses bilaterally. The globes are intact bilaterally. There is 9 mm mucous retention cyst or polyp in the lateral right maxillary sinusitis image 3. Patchy fluid signal or opacification in the mastoid air cells bilaterally left greater than right IMPRESSION: Possible mild left greater than right mastoiditis, correlate clinically with point tender ness. Mild chronic paranasal sinus disease otherwise unremarkable study.
== END | disposition home or self-care (01) ==
LOC: RADMRIMAIN 06:46
PROVIDERS: ATTEND Psychiatry & Neurology Neurology
DX: J34.9 Unspecified disorder of nose and nasal sinuses (principal)
CPT/HCPCS: 70551

== ENCOUNTER → 2020-10-10 | Outpatient (CLI) | payer MEDICAID | END | disposition home or self-care (01) | CPT/HCPCS: 36415; 80048; 80061; 83036; 83735; 84450; 84460; 85027 ==

== ENCOUNTER → 2020-12-05 | Outpatient (CLI) | payer MEDICAID ==
--- NOTE | 2020-12-05 12:49 | XR ---
Right RIBS and 2 view chest x-ray HISTORY:M54.2, R07.81 2 views of the chest, 5 views of the right ribs submitted, correlation to prior chest x-ray 03/08/2020 Chest x-ray stable, there is no evident pneumothorax or pleural effusion, cardiac mediastinal silhoue tte is unchanged. No evident airspace disease. Bone mineralization is stable. No evident displaced rib fracture. IMPRESSION: No acute abnormality. Bone scan could be performed for increased sensitivity as indicated if occult fractures suspected clinically
--- NOTE | 2020-12-05 13:06 | XR ---
Cervical spine HISTORY:M54.2, R07.81 6 views of the cervical spine There is foraminal encroachment at C6-7 and C7-T1 on the left, C5-6, C6-7 and C7-T1 on the right, pos sibly C4-5. There is multilevel level spondylosis. Loss of the normal cervical lordosis is present. B one mineralization is reduced. Cervical vertebral bodies show preserved height. Loss of disc height i s present at C5-6, C6-7 and C7-T1. Prevertebral soft tissues are normal. Apical scarring vascular ally cifications suspected along the carotid artery regions. Odontoid view is somewhat limited. Facet arth ropathy changes are suspected. IMPRESSION: Degenerative disc disease, foraminal encroachment, there may be underlying muscle spasm, osteopenia, additional findings above.
== END | disposition home or self-care (01) ==
LOC: RADXRMAIN 11:28
PROVIDERS: ATTEND Family Medicine
DX: M50.30 Other cervical disc degeneration, unspecified cervical region (principal); M47.812 Spondylosis without myelopathy or radiculopathy, cervical region
CPT/HCPCS: 71046; 72050

== ENCOUNTER → 2021-04-04 | Outpatient (CLI) | payer MEDICAID ==
[2021-04-04 11:42] LABS: Appearance,Urine Clear (Clear); Bilirubin,Urine Negative (Negative); Blood,Urine Negative (Negative); Color,Urine Yellow; Glucose,Urine (UA) Trace (Negative); Ketones,Urine Negative (Negative); Leukocyte Esterase,Urine Negative (Negative); Nitrite,Urine Negative (Negative); PH, Urine 5.5 (5.0-8.0); Protein,Urine Negative (Negative); Specific Gravity,Urine 1.026 (1.001-1.035); Urobilinogen,Urine <2.0 mg/dL (<2.0)
[2021-04-04 18:03] LABS: HCT 42.3 % (39.6-50.0); HGB 13.5 g/dL (13.0-17.0); MCH 30.9 pg (27.0-32.0); MCHC 31.9 g/dL (32.0-37.0); MCV 96.8 fL (80.0-97.0); Mean Platelet Volume 9.6 fL (9.5-12.2); Platelet Count 242 X 10*3/uL (140-440); RBC 4.37 X 10*6/uL (4.40-5.60); RDW 12.1 % (11.5-14.5); WBC 4.76 X 10*3/uL (4.50-10.00)
[2021-04-04 19:36] LABS: ALT 25 U/L (10-49); AST 17 U/L (14-35); African American GFR (CKD) 97.8 (60.0-200.0); Albumin 4.1 g/dL (3.8-4.9); Albumin/Globulin Ratio 2.28 (1.60-3.17); Alkaline Phosphatase 70 U/L (41-126); Blood Urea Nitrogen 19.1 mg/dL (9.0-27.0); Calcium 8.9 mg/dL (8.7-10.3); Carbon Dioxide 25.8 mmol/L (20.0-27.5); Chloride 105 mmol/L (96-109); Globulin 1.8 g/dL (1.6-3.3); Glucose 145 mg/dL (70-110); Magnesium 1.9 mg/dL (1.5-2.4); Non-African American GFR(CKD) 84.4 (60.0-200.0); Potassium 4.7 mmol/L (3.5-5.5); Sodium 141 mmol/L (135-145); Total Bilirubin <0.20 mg/dL (0.30-1.20); Total Protein 5.9 g/dL (6.2-8.2)
[2021-04-04 19:47] LABS: Chol/HDL Ratio 2.38 Ratio
== END | disposition home or self-care (01) ==
LOC: LABWHC1 09:50
PROVIDERS: ATTEND Family Medicine
DX: Z12.5 Encounter for screening for malignant neoplasm of prostate (principal); I10 Essential (primary) hypertension; E11.65 Type 2 diabetes mellitus with hyperglycemia; E78.00 Pure hypercholesterolemia, unspecified; E55.9 Vitamin D deficiency, unspecified
CPT/HCPCS: 36415; 80053; 80061; 81003; 82306; 83036; 83721; 83735; 84153; 85027

== ENCOUNTER → 2021-12-18 | Outpatient (CLI) | payer MEDICAID | END | disposition home or self-care (01) | LOC: LABWHC1 10:07 | PROVIDERS: ATTEND Internal Medicine Interventional Cardiology | DX: I48.19 Other persistent atrial fibrillation (principal) | CPT/HCPCS: 36415; 84443 ==

== ENCOUNTER → 2022-03-22 | Outpatient (CLI) | payer MEDICAID ==
[2022-03-22 14:55] LABS: Basophils # (A) 0.05 X 10*3/uL (0.00-0.10); Basophils % (A) 0.9 %; Eosinophils # (A) 0.07 X 10*3/uL (0.04-0.35); Eosinophils % (A) 1.3 %; HCT 43.3 % (39.6-50.0); HGB 14.2 g/dL (13.0-17.0); Immature Grans, Automated 0.2 %; Lymphocytes # (A) 2.25 X 10*3/uL (0.90-5.00); Lymphocytes % (A) 40.2 %; MCH 31.2 pg (27.0-32.0); MCHC 32.8 g/dL (32.0-37.0); MCV 95.2 fL (80.0-97.0); Mean Platelet Volume 9.4 fL (9.5-12.2); Monocytes % (A) 10.7 %; NRBC Per 100 WBC 0 /100 WBCS (0.0-0.0); Neutrophils # (A) 2.62 X 10*3/uL (1.80-7.70); Neutrophils % (A) 46.7 %; Platelet Count 247 X 10*3/uL (140-440); RBC 4.55 X 10*6/uL (4.40-5.60); RDW 11.9 % (11.5-14.5)
[2022-03-22 15:26] LABS: ALT 23 U/L (10-49); AST 19 U/L (14-35); African American GFR (CKD) 97.1 (60.0-200.0); Albumin 4.2 g/dL (3.8-4.9); Albumin/Globulin Ratio 1.83 (1.60-3.17); Alkaline Phosphatase 77 U/L (41-126); Blood Urea Nitrogen 18.8 mg/dL (9.0-27.0); Calcium 9.3 mg/dL (8.7-10.3); Carbon Dioxide 26.6 mmol/L (20.0-27.5); Chloride 103 mmol/L (96-109); Globulin 2.3 g/dL (1.6-3.3); Glucose 149 mg/dL (70-110); LDL Cholesterol,Calculated 75.4 mg/dL (0.0-131.0); Non-African American GFR(CKD) 83.8 (60.0-200.0); Potassium 5.3 mmol/L (3.5-5.5); Sodium 138 mmol/L (135-145); Total Protein 6.5 g/dL (6.2-8.2)
[2022-03-22 19:45] LABS: Appearance,Urine Clear (Clear); Bilirubin,Urine Negative (Negative); Blood,Urine Negative (Negative); Color,Urine Yellow (Yellow); Ketones,Urine Negative (Negative); Nitrite,Urine Negative (Negative); PH, Urine 5.5 (5.0-8.0); Specific Gravity,Urine 1.022 (1.001-1.030); Urobilinogen,Urine 0.2 (0.2,1.0)
[2022-03-22 22:09] LABS: Microalbumin Creatinine Ratio <30 mg/g Creat (0-30)
== END | disposition home or self-care (01) ==
LOC: LABWHC1 10:25
PROVIDERS: ATTEND Family Medicine
DX: Z12.5 Encounter for screening for malignant neoplasm of prostate (principal); I10 Essential (primary) hypertension; E78.00 Pure hypercholesterolemia, unspecified; E11.65 Type 2 diabetes mellitus with hyperglycemia; E55.9 Vitamin D deficiency, unspecified
CPT/HCPCS: 80061; 80053; 85025; 81003; 82306; 82043; 82570; 83036; 36415; G0103

== ENCOUNTER → 2022-07-09 | Outpatient (CLI) | payer MEDICAID | END | disposition home or self-care (01) | LOC: LABWHC1 09:20 | PROVIDERS: ATTEND Family Medicine | DX: E11.65 Type 2 diabetes mellitus with hyperglycemia (principal) | CPT/HCPCS: 36415; 83036 ==

== ENCOUNTER → 2022-09-10 | Outpatient (CLI) | payer MEDICAID ==
[2022-09-10 10:16] LABS: ALT 30 U/L (4-49); AST 28 U/L (17-59); African American GFR (CKD) >90 (>60 ml/min/1.73 sqM); Albumin 3.9 g/dL (3.5-5.0); Albumin/Globulin Ratio 1.6; Alkaline Phosphatase 63 U/L (38-126); Anion Gap 10 mmol/L; Blood Urea Nitrogen 17 mg/dL (9-20); Calcium 8.8 mg/dL (8.4-10.2); Carbon Dioxide 29 mmol/L (22-30); Chloride 102 mmol/L (98-107); Globulin 2.4 g/dL; Glucose 121 mg/dL (74-99); Non-African American GFR(CKD) 89 (>60 ml/min/1.73 sqM); Potassium 4.7 mmol/L (3.5-5.1); Sodium 141 mmol/L (137-145); Total Bilirubin 0.4 mg/dL (0.2-1.3); Total Protein 6.3 g/dL (6.3-8.2)
[2022-09-10 15:51] LABS: Chol/HDL Ratio 2.53 Ratio; LDL Cholesterol,Calculated 62.1 mg/dL; VLDL Calculation 10.44 mg/dL
== END | disposition home or self-care (01) ==
LOC: LABWHC1 08:07
PROVIDERS: ATTEND Family Medicine
DX: I10 Essential (primary) hypertension (principal); E78.00 Pure hypercholesterolemia, unspecified; E11.65 Type 2 diabetes mellitus with hyperglycemia
CPT/HCPCS: 36415; 80053; 80061; 83036

== ENCOUNTER 2023-07-17 06:22 | Day surgery (SDC) | payer BC, MEDICAID ==
[2023-07-16 08:44] VITALS: BMI 43.4
[2023-07-17] MEDS ORDERED: LIDOCAINE 1% (10MG/ML) FOR IV START INTRADERMA PRN (06:48)
[2023-07-17 07:06] LABS: Glucose,Whole Blood 172 mg/dL (70-110)
[2023-07-17] MEDS: LACTATED RINGERS 1,000 ML IV SCH (07:12)
[2023-07-17 07:21] VITALS: TEMP 96.7
[2023-07-17] MEDS ORDERED: PROPOFOL 10 MG/ML 20 ML VIAL IV ONE (07:32)
--- NOTE | 2023-07-17 07:45 | P.GSHP ---
History of Present Illness H&P Date: 07/17/23 Chief Complaint: screening colonoscopy, hhistory of diverticulosis this is a 58-year-old male presents today for screening colonoscopy. Patient previous history of diverticulosis. Past Medical History Past Medical History: Atrial Fibrillation, Coronary Artery Disease (CAD), Diabetes Mellitus, GI Bleed, Pneumonia, Sleep Apnea/CPAP/BIPAP Additional Past Medical History / Comment(s): "pre-diabetic" Type II, hx lower GI bleed, diverticular disease, benign colon polyps, does not use CPAP, hx of pneumonia and postive covid 06/27/19, "Long COVID symptoms." "Sometimes I have breathing issues with exertion.""I get winded and have to use an inhaler." History of Any Multi-Drug Resistant Organisms: None Reported Past Surgical History: Appendectomy, Bowel Resection, Cardiac Ablation, Heart Catheterization, Tonsillectomy Additional Past Surgical History / Comment(s): 2017 colon resection r/t bowel abcess, colonoscopies/benign polypectomy, cryoablation pulmonary veins 2016, septorhinoplasty, wisdom teeth extractions. Cardiac ablation 2018. Past Anesthesia/Blood Transfusion Reactions: No Reported Reaction Additional Past Anesthesia/Blood Transfusion Reaction / Comment(s): CLAUSTROPHOBIA. No hx of blood Transfusion. Smoking Status: Former smoker - Past Family History Mother Family Medical History: Diabetes Mellitus Additional Family Medical History / Comment(s): Mother had diverticular disease. She had a obstructed bowel and had emergency surgery. Father Additional Family Medical History / Comment(s): Father had to have 3 colostomies in his life. Sister(s) Family Medical History: Cancer Additional Family Medical History / Comment(s): breast Medications and Allergies Home Medications Medication Instructions Recorded Confirmed Type Aspirin [Adult Low Dose Aspirin EC] 81 mg PO QAM 04/24/17 07/17/23 History Rivaroxaban [Xarelto] 20 mg PO HS 06/03/17 07/17/23 History Sotalol [Betapace] 40 mg PO BID 06/03/17 07/17/23 History Magnesium Oxide [Mag-Ox] 500 mg PO QAM 04/29/19 07/17/23 History lisinopriL [Zestril] 2.5 mg PO QAM 10/11/19 07/17/23 History Atorvastatin [Lipitor] 80 mg PO HS 07/13/20 07/17/23 History metFORMIN HCL [Glucophage] 1,000 mg PO BID 07/13/20 07/17/23 History Albuterol Sulfate [Albuterol 90 mcg INHALATION Q4H PRN 07/16/23 07/17/23 History Sulfate Hfa] Dapagliflozin Propanediol [Farxiga] 5 mg PO QAM 07/16/23 07/17/23 History Dapagliflozin Propanediol [Farxiga] 10 mg PO QAM 07/16/23 07/17/23 History FLUoxetine HCL [PROzac] 20 mg PO HS 07/16/23 07/17/23 History Potassium Chloride [Klor-Con 20 20 meq PO QAM 07/16/23 07/17/23 History Packets] Vitamin D (Dose Unknown) 1 dose PO QAM 07/16/23 07/17/23 History Allergies Allergy/AdvReac Type Severity Reaction Status Date / Time No Known Allergies Allergy Verified 07/17/23 06:48 Surgical - Exam Vital Signs Temp Pulse Resp BP Pulse Ox 96.7 F L 69 20 98/54 95 07/17/23 06:58 07/17/23 06:58 07/17/23 06:58 07/17/23 06:58 07/17/23 06:58 - General well developed, well nourished, no distress - Eyes PERRL - ENT normal pinna - Neck no masses - Respiratory normal expansion - Cardiovascular Rhythm: regular - Abdomen Abdomen: soft, non tender Results - Labs Abnormal Lab Results - Last 24 Hours (Table) 07/17/23 Range/Units 07:04 POC Glucose (mg/dL) 172 H (70-110) mg/dL Assessment and Plan Plan: diverticulosis. We'll perform screening colonoscopy.
--- NOTE | 2023-07-17 08:01 | P.OP ---
Date of Procedure: 07/17/23 Preoperative Diagnosis: screening colonoscopy History of diverticulosis Postoperative Diagnosis: codiverticulosis History of low anterior resection Procedure(s) Performed: colonoscopy Anesthesia: MAC Surgeon: Alcides Ritter Pathology: none sent Condition: stable Disposition: PACU Description of Procedure: the patient's placed on the endoscopy table in the lateral position. He received IV sedation. Digital rectal exam was performed. This revealed no abnormalities. Flexible colonoscope was then placed patient anus and passed throughout the entire colon. The ileocecal valve was visualized. The cecum, ascending and transverse colon appeared normal. The descending colon had some diverticulosis. The patient a previous sigmoid resection. The colorectal anastomosiswas visualized and This appeared normal. The remaining rectum appeared normal. Scope withdrawn for patient.
[2023-07-17 08:46] VITALS: BP 115/78; PULSE 78; RESP 18
== END 2023-07-17 08:40 | disposition home or self-care (01) ==
LOC: ORWHC2ENDO 06:22
PROVIDERS: ATTEND Surgery
DX: Z12.11 Encounter for screening for malignant neoplasm of colon (principal); K57.30 Diverticulosis of large intestine without perforation or abscess without bleeding; I48.91 Unspecified atrial fibrillation; I25.10 Atherosclerotic heart disease of native coronary artery without angina pectoris; E11.9 Type 2 diabetes mellitus without complications; F32.A Depression, unspecified; K21.9 Gastro-esophageal reflux disease without esophagitis; G47.33 Obstructive sleep apnea (adult) (pediatric); Z90.49 Acquired absence of other specified parts of digestive tract; Z90.89 Acquired absence of other organs; Z95.5 Presence of coronary angioplasty implant and graft; Z87.891 Personal history of nicotine dependence; Z83.3 Family history of diabetes mellitus; Z79.82 Long term (current) use of aspirin; Z79.84 Long term (current) use of oral hypoglycemic drugs; Z79.899 Other long term (current) drug therapy; Z79.01 Long term (current) use of anticoagulants
CPT/HCPCS: 45378; J2704

== ENCOUNTER 2024-04-28 07:03 | Day surgery (SDC) | payer BC ==
[2024-04-27 09:17] VITALS: BMI 39.3
[~2024-04-28 07:03] MED LIST changes: -DEXAMETHASONE SOD PHOSPHATE 10 MG/ML 1 ML VIAL IV ONE; -DEXAMETHASONE SOD PHOSPHATE 4 MG/ML 1 ML VIAL IV ONE; -FAMOTIDINE 20 MG/2 ML VIAL IV ONE; -HYDROmorphone 0.5 MG/0.5 ML SYRINGE IVP PRN; -ONDANSETRON 4 MG/2 ML VIAL IVP ONE; +TETRACAINE 0.5% OPHTH (PF) DROPS 4 ML BTL OP PRN
[2024-04-28] MEDS: CYCLOPENTOLATE 1% OPHTH SOLN 2 ML BTL OP PRN (07:15)
[2024-04-28] MEDS: PHENYLEPHRINE 2.5% OPHTH DRP 2ML OP PRN (07:18)
[2024-04-28 07:29] LABS: Glucose,Whole Blood 174 mg/dL (70-110)
[2024-04-28 07:38] VITALS: TEMP 98.1
[2024-04-28] MEDS: LACTATED RINGERS 500 ML IV ONE (07:39)
[2024-04-28] MEDS ORDERED: fentaNYL (PF) 50 MCG/ML 2 ML AMP ONE (08:07)
[2024-04-28] MEDS ORDERED: MIDAZOLAM 2 MG/2 ML VIAL ONE (08:07)
[2024-04-28] MEDS: EPINEPHrine (PF) 0.3 ML in BALANCED SALT IRRIG SOLN COMB2 500 ML IRRIGATION ONE (08:18)
[2024-04-28] MEDS: LIDOCAINE 1% (PF) 10MG/ML VIAL SQ ONE (08:19)
[2024-04-28] MEDS: HYALURONATE SODIUM INTRAOCULAR 1 EACH SYRINGE (12MG/ML) INTRAOCULA ONE (08:19)
[2024-04-28] MEDS: BALANCED SALT IRRIG SOLN COMB2 15 ML IRRIG.SOLN IRRIGATION ONE (08:19)
[2024-04-28] MEDS: TIMOLOL 0.5% OPHTH DROPS 5 ML BTL OP PRN (08:20)
[2024-04-28] MEDS: MOXIFLOXACIN HCL 0.5% DROPS 3 ML BTL OP PRN (08:20)
[2024-04-28] MEDS: DUOVISC KIT (GREEN BOX) INTRAOCULA ONE (08:21)
--- NOTE | 2024-04-28 08:37 | P.OP ---
Date of Procedure: 04/28/24 Preoperative Diagnosis: NS & CS Postoperative Diagnosis: same Procedure(s) Performed: PIOL, OS Implants: [id number] 22.00 Anesthesia: MAC Surgeon: Mika Vergara Pathology: none sent Condition: stable Disposition: same day Indications for Procedure: blurry vision Operative Findings: no complications
[2024-04-28 08:56] VITALS: BP 113/77; PULSE 58; RESP 15
--- NOTE | 2024-04-28 12:53 | OP ---
OPERATIVE REPORT DATE OF SERVICE : 04/28/2024 PREOPERATIVE DIAGNOSIS: Nuclear sclerosis, and cortical sclerosis. POSTOPERATIVE DIAGNOSIS: Nuclear sclerosis, and cortical sclerosis. OPERATION: Phacoemulsification of cataract and interocular lens implant of the left eye. ESTIMATED BLOOD LOSS: Zero. SPECIMEN TAKEN: None. NARRATIVE: After obtaining the appropriate consent, the patient was brought to the operating room where the patient was placed under cardiac monitoring and prepped and draped in the usual sterile manner. At the 5 o'clock position, a 15-degree super sharp blade was used to create a paracentesis followed by instillation of 1% Xylocaine MPF 50:50 mix with BSS into the anterior chamber. This was followed by Duovisc viscoelastic to stabilize the anterior chamber. At the 3 o'clock position a self-sealing corneal flap incision was created using 2.8 mm ze keratome. A cystotome was used to initiate a continuous tear capsulorrhexis which was completed with the Utrata forceps. A Binkhorst cannula was used to hydrodissect the lens nucleus followed by hydrodelineation. Phacoemulsification of the lens was performed utilizing phacochop in power. The remaining cortical material was removed using the irrigation aspiration mode followed by additional 1% Xylocaine MPF into the anterior chamber followed by viscoelastic to stabilize the capsular bag. A [employer] Envista [id number], 22 diopters posterior chamber intraocular lens was placed into the capsular bag without difficulty. The remaining viscoelastic material was removed from the anterior chamber with the irrigation/aspiration. Balanced salt solution was used to normalize the intraocular pressure. The incision was checked for watertight integrity. The patient then received 2 drops of 0.5% timolol followed by 2 drops Vigamox, was lightly patched and shielded in the usual manner. There were no complications from the procedure. The patient tolerated the procedure well and was returned to recovery in good condition. MMODL / IJN: [id number] /
== END 2024-04-28 09:04 | disposition home or self-care (01) ==
LOC: OR 07:03
PROVIDERS: ATTEND Ophthalmology
DX: H25.12 Age-related nuclear cataract, left eye (principal); I48.91 Unspecified atrial fibrillation; J45.909 Unspecified asthma, uncomplicated; G47.33 Obstructive sleep apnea (adult) (pediatric); F32.A Depression, unspecified; Z79.01 Long term (current) use of anticoagulants; Z79.899 Other long term (current) drug therapy; Z79.51 Long term (current) use of inhaled steroids
CPT/HCPCS: 66984; C1780; J2250; J0171; J3010; J2003

== ENCOUNTER 2024-05-31 11:40 | Day surgery (SDC) | payer BC ==
[~2024-05-31 11:40] MED LIST changes: -LACTATED RINGERS 1,000 ML IV SCH; -TETRACAINE 0.5% OPHTH (PF) DROPS 4 ML BTL OP PRN
[2024-05-31 12:23] VITALS: TEMP 97
[2024-05-31 12:29] LABS: Glucose,Whole Blood 127 mg/dL (70-110)
[2024-05-31] MEDS: IV FLUID CONTINUATION 1,000 ML IV ONE (12:29)
[2024-05-31] MEDS: LACTATED RINGERS 1,000 ML IV SCH (12:29)
[2024-05-31] MEDS ORDERED: PROPOFOL 10 MG/ML 20 ML VIAL IV ONE (13:27)
--- NOTE | 2024-05-31 13:30 | P.GSHP ---
History of Present Illness H&P Date: 05/31/24 Chief Complaint: Diverticulitis Is a 59-year-old male presents complaints of left lower quadrant pain. Patient presents today for colonoscopy for evaluation of diverticulitis Past Medical History Past Medical History: Atrial Fibrillation, Coronary Artery Disease (CAD), Diabetes Mellitus, GI Bleed, Pneumonia, Sleep Apnea/CPAP/BIPAP Additional Past Medical History / Comment(s): "pre-diabetic" Type II, hx lower GI bleed, diverticular disease, benign colon polyps, does not use CPAP, hx of pneumonia and postive covid 06/27/19, "Long COVID symptoms." "Sometimes I have breathing issues with exertion.""I get winded and have to use an inhaler." History of Any Multi-Drug Resistant Organisms: None Reported Past Surgical History: Appendectomy, Bowel Resection, Cardiac Ablation, Heart Catheterization, Tonsillectomy Additional Past Surgical History / Comment(s): 2017 colon resection r/t bowel abcess, colonoscopies/benign polypectomy, cryoablation pulmonary veins 2017, septorhinoplasty, wisdom teeth extractions. Cardiac ablation 2018. left cataract surg. Past Anesthesia/Blood Transfusion Reactions: No Reported Reaction Additional Past Anesthesia/Blood Transfusion Reaction / Comment(s): CLAUSTROPHOBIA. No hx of blood Transfusion. Smoking Status: Former smoker - Past Family History Mother Family Medical History: Diabetes Mellitus Additional Family Medical History / Comment(s): Mother had diverticular disease. She had a obstructed bowel and had emergency surgery. Father Additional Family Medical History / Comment(s): Father had to have 3 colostomies in his life. Sister(s) Family Medical History: Cancer Additional Family Medical History / Comment(s): breast Medications and Allergies Home Medications Medication Instructions Recorded Confirmed Type Aspirin [Adult Low Dose Aspirin EC] 81 mg PO QAM 04/24/17 05/31/24 History Rivaroxaban [Xarelto] 10 mg PO HS 06/03/17 05/31/24 History Sotalol [Betapace] 40 mg PO BID 06/03/17 05/31/24 History Magnesium Oxide [Mag-Ox] 400 mg PO QAM 04/29/19 05/31/24 History lisinopriL [Zestril] 2.5 mg PO QAM 10/11/19 05/31/24 History Atorvastatin [Lipitor] 80 mg PO HS 07/13/20 05/31/24 History metFORMIN HCL [Glucophage] 1,000 mg PO BID 07/13/20 05/31/24 History Albuterol Sulfate [Albuterol 90 mcg INHALATION Q4H PRN 07/16/23 05/31/24 History Sulfate Hfa] Dapagliflozin Propanediol [Farxiga] 10 mg PO QAM 07/16/23 05/31/24 History FLUoxetine HCL [PROzac] 20 mg PO HS 07/16/23 05/31/24 History Potassium Chloride [Klor-Con 20 20 meq PO QAM 07/16/23 05/31/24 History Packets] Vitamin D (Dose Unknown) 1 dose PO QAM 07/16/23 05/31/24 History Allergies Allergy/AdvReac Type Severity Reaction Status Date / Time No Known Allergies Allergy Verified 05/31/24 12:17 Surgical - Exam Vital Signs Temp Pulse Resp BP Pulse Ox 97.0 F L 87 16 96/61 96 05/31/24 12:22 05/31/24 12:22 05/31/24 12:22 05/31/24 12:22 05/31/24 12:22 - General well developed, well nourished, no distress - Eyes PERRL - ENT normal pinna, normal nares - Neck no masses - Respiratory normal expansion - Cardiovascular Rhythm: regular - Abdomen Abdomen: soft, non tender Results - Labs Abnormal Lab Results - Last 24 Hours (Table) 05/31/24 Range/Units 12:28 POC Glucose (mg/dL) 127 H (70-110) mg/dL Assessment and Plan Assessment: Diverticulitis. Will perform colonoscopy
--- NOTE | 2024-05-31 13:41 | P.OP ---
Date of Procedure: 05/31/24 Preoperative Diagnosis: History of diverticulitis Postoperative Diagnosis: Mild diverticulosis Procedure(s) Performed: Colonoscopy Anesthesia: MAC Surgeon: Alcides Ritter Pathology: none sent Condition: stable Disposition: PACU Description of Procedure: The patient was placed on the endoscopy table in the lateral position. he received IV sedation. Digital rectal exams performed. This revealed no abnormality. The flexible colonoscope was then placed patient anus and passed throughout the entire colon. The ileocecal valve was visualized. The cecum appeared normal. The ascending and transverse colon appeared normal. The descending colon was a few scattered diverticuli. Patient had previous sigmoid resection. The colorectal anastomosis appeared normal. The rectum appeared normal. Scope withdrawn for the patient.
[2024-05-31 14:15] VITALS: BP 100/66; PULSE 58; RESP 18
== END 2024-05-31 14:50 | disposition home or self-care (01) ==
LOC: ORWHC2ENDO 11:40
PROVIDERS: ATTEND Surgery
DX: K57.30 Diverticulosis of large intestine without perforation or abscess without bleeding (principal); E11.9 Type 2 diabetes mellitus without complications; I25.10 Atherosclerotic heart disease of native coronary artery without angina pectoris; I48.91 Unspecified atrial fibrillation; G47.33 Obstructive sleep apnea (adult) (pediatric); F41.9 Anxiety disorder, unspecified; F32.A Depression, unspecified; F40.240 Claustrophobia; Z79.84 Long term (current) use of oral hypoglycemic drugs; Z87.891 Personal history of nicotine dependence; Z90.49 Acquired absence of other specified parts of digestive tract; Z90.89 Acquired absence of other organs; Z86.0100 Personal history of colon polyps, unspecified; Z99.89 Dependence on other enabling machines and devices; Z79.01 Long term (current) use of anticoagulants; Z79.82 Long term (current) use of aspirin; Z79.899 Other long term (current) drug therapy
CPT/HCPCS: 45378; J2704

== ENCOUNTER → 2024-06-16 | Day surgery (SDC) | payer BC ==
[2024-06-14 11:07] VITALS: BMI 39.0
[~2024-06-16] MED LIST changes: +LACTATED RINGERS 1,000 ML IV SCH; -LIDOCAINE 1% (10MG/ML) FOR IV START INTRADERMA PRN; +MOXIFLOXACIN HCL 0.5% DROPS 3 ML BTL OP PRN; +TETRACAINE 0.5% OPHTH (PF) DROPS 4 ML BTL OP PRN; +TIMOLOL 0.5% OPHTH DROPS 5 ML BTL OP PRN
[2024-06-16] MEDS: IV FLUID CONTINUATION 1,000 ML IV ONE (06:37)
[2024-06-16] MEDS: CYCLOPENTOLATE 1% OPHTH SOLN 2 ML BTL OP PRN (06:40)
[2024-06-16] MEDS: PHENYLEPHRINE 2.5% OPHTH DRP 2ML OP PRN (06:43)
[2024-06-16 06:44] VITALS: BP 121/81; PULSE 60; RESP 16; TEMP 97.3
[2024-06-16 07:08] LABS: Glucose,Whole Blood 154 mg/dL (70-110)
== END | disposition home or self-care (01) ==
LOC: OR 05:59
PROVIDERS: ATTEND Ophthalmology
DX: H25.11 Age-related nuclear cataract, right eye (principal); Z53.9 Procedure and treatment not carried out, unspecified reason

== ENCOUNTER 2024-06-30 09:45 | Day surgery (SDC) | payer BC ==
[2024-06-28 15:54] VITALS: BMI 39.0
[~2024-06-30 09:45] MED LIST changes: -LACTATED RINGERS 1,000 ML IV SCH; -MOXIFLOXACIN HCL 0.5% DROPS 3 ML BTL OP PRN; -TIMOLOL 0.5% OPHTH DROPS 5 ML BTL OP PRN
[2024-06-30] MEDS: CYCLOPENTOLATE 1% OPHTH SOLN 2 ML BTL OP PRN (11:25)
[2024-06-30] MEDS: PHENYLEPHRINE 2.5% OPHTH DRP 2ML OP PRN (11:28)
[2024-06-30 11:42] LABS: Glucose,Whole Blood 121 mg/dL (70-110)
[2024-06-30] MEDS: LACTATED RINGERS 1,000 ML IV ONE (11:42)
[2024-06-30 11:45] VITALS: TEMP 98
[2024-06-30] MEDS: LACTATED RINGERS 1,000 ML IV SCH (11:47)
[2024-06-30] MEDS ORDERED: MIDAZOLAM 2 MG/2 ML VIAL ONE (12:42)
[2024-06-30] MEDS ORDERED: fentaNYL (PF) 50 MCG/ML 2 ML AMP ONE (12:42)
[2024-06-30] MEDS: BALANCED SALT IRRIG SOLN COMB2 15 ML IRRIG.SOLN IRRIGATION ONE (12:43)
[2024-06-30] MEDS: HYALURONATE SODIUM INTRAOCULAR 1 EACH SYRINGE (12MG/ML) INTRAOCULA ONE (12:43)
[2024-06-30] MEDS: TIMOLOL 0.5% OPHTH DROPS 5 ML BTL OP PRN (12:44)
[2024-06-30] MEDS: LIDOCAINE 1% (PF) 10MG/ML VIAL SQ ONE (12:44)
[2024-06-30] MEDS: MOXIFLOXACIN HCL 0.5% DROPS 3 ML BTL OP PRN (12:44)
[2024-06-30] MEDS: EPINEPHrine (PF) 0.3 ML in BALANCED SALT IRRIG SOLN COMB2 500 ML IRRIGATION ONE (12:49)
--- NOTE | 2024-06-30 13:13 | P.OP ---
Date of Procedure: 06/30/24 Preoperative Diagnosis: NS Postoperative Diagnosis: same Procedure(s) Performed: PIOL, OD Implants: [id number] 21.50 Anesthesia: MAC Surgeon: Mika Vergara Pathology: none sent Condition: stable Disposition: same day Indications for Procedure: blurry vision Operative Findings: no complications
[2024-06-30 13:39] VITALS: BP 138/77; PULSE 81; RESP 16
--- NOTE | 2024-06-30 21:57 | OP ---
OPERATIVE REPORT DATE OF SERVICE : 06/30/2024 PREOPERATIVE DIAGNOSIS: Nuclear sclerosis. POSTOPERATIVE DIAGNOSIS: Nuclear sclerosis. OPERATION: Phacoemulsification of cataract and interocular lens implant, right eye. ESTIMATED BLOOD LOSS: Zero. SPECIMEN TAKEN: None. NARRATIVE: After obtaining the appropriate consent, the patient was brought to the operating room where the patient was placed under cardiac monitoring and prepped and draped in the usual sterile manner. At the 11 o'clock position, a 15-degree super sharp blade was used to create a paracentesis followed by instillation of 1% Xylocaine MPF 50:50 mix with BSS into the anterior chamber. This was followed by Amvisc viscoelastic to stabilize the anterior chamber. At the 9 o'clock position a self-sealing corneal flap incision was created using 2.8 mm ze keratome. A cystotome was used to initiate a continuous tear capsulorrhexis which was completed with the Utrata forceps. A Binkhorst cannula was used to hydrodissect the lens nucleus followed by hydrodelineation. Phacoemulsification of the lens was performed utilizing phacochop in 7.04 seconds at 9.4% power. The remaining cortical material was removed using the irrigation aspiration mode followed by additional 1% Xylocaine MPF into the anterior chamber followed by viscoelastic to stabilize the capsular bag. A [employer]ch [employer] enVista 21.5 diopters posterior chamber lens was placed into the capsular bag without difficulty. The remaining viscoelastic material was removed from the anterior chamber with the irrigation/aspiration. Balanced salt solution was used to normalize the intraocular pressure. The incision was checked for watertight integrity. The patient then received 2 drops of 0.5% timolol followed by 2 drops Vigamox, was lightly patched and shielded in the usual manner. There were no complications from the procedure. The patient tolerated the procedure well and was returned to recovery in good condition. MMODL / IJN: [id number] /
== END 2024-06-30 13:40 | disposition home or self-care (01) ==
LOC: OR 09:45
PROVIDERS: ATTEND Ophthalmology
DX: H25.11 Age-related nuclear cataract, right eye (principal); H02.831 Dermatochalasis of right upper eyelid; H02.834 Dermatochalasis of left upper eyelid; H02.63 Xanthelasma of right eye, unspecified eyelid; H02.66 Xanthelasma of left eye, unspecified eyelid; H52.13 Myopia, bilateral; H52.4 Presbyopia; H00.023 Hordeolum internum right eye, unspecified eyelid; H00.026 Hordeolum internum left eye, unspecified eyelid; I25.10 Atherosclerotic heart disease of native coronary artery without angina pectoris; I49.9 Cardiac arrhythmia, unspecified; K92.2 Gastrointestinal hemorrhage, unspecified; E11.9 Type 2 diabetes mellitus without complications; G47.33 Obstructive sleep apnea (adult) (pediatric); Z96.1 Presence of intraocular lens; Z79.84 Long term (current) use of oral hypoglycemic drugs; Z79.02 Long term (current) use of antithrombotics/antiplatelets; Z79.899 Other long term (current) drug therapy
CPT/HCPCS: 66984; J0171; J2003